=== PATIENT | male | born 1945 | race Caucasian/White ===

== ENCOUNTER 2023-04-02 11:50 | Inpatient (IN) ==
[2023-04-02 13:13] LABS: Hematocrit (blood only) 19.6 % (42.0-52.0); Hemoglobin 6.6 g/dl (14.0-18.0); Mean Corpuscular Hemoglobin 28.4 pg (25.0-34.0); Mean Corpuscular Hgb Conc 33.7 g/dL (32.0-36.0); Mean Corpuscular Volume 84.5 fL (80.0-100.0); Partial Thromboplastin Ratio 0.8; Partial Thromboplastin Time 21.9 Seconds (21.0-31.0); Platelet Count 132 K/uL (130-400); Prothrombin Time 11.2 Seconds (9.0-12.0); RDW Coefficient of Variation 15.3 % (11.5-14.5); RDW Standard Deviation 46.4 fL (36.4-46.3); Red Blood Count 2.32 M/uL (4.70-6.10); White Blood Count 2.61 K/ul (4.8-10.8)
[2023-04-02 13:14] LABS: Albumin Level 3.4 gm/dl (3.4-5.0); BUN Creatinine Ratio 5.6 (10-20); Bilirubin,Total 0.3 mg/dl (0.2-1.0); Calcium 8.3 mg/dl (8.6-10.3); Creatinine Clr Calc Pharmacy 7.4 ml/min; Est GFR (African American) 5.8 ml/min; Globulin 3.3 gm/dl (2.5-4.0); Potassium 4.2 mmol/L (3.5-5.1); Total Protein 6.7 gm/dl (6.0-8.3)
[2023-04-02] MEDS ORDERED: SODIUM CHLORIDE 0.9% 250 ML IV PRN ×2 (13:17→15:43)
[2023-04-02 13:29] LABS: Basophils # (auto) 0.03 K/uL (0-0.2); Basophils % (auto) 1.1 %; Eosinophils # (auto) 0.05 K/uL (0-0.50); Eosinophils % (auto) 1.9 %; Immature Granulocytes # (auto) 0.02 K/uL (0.01-0.20); Immature Granulocytes % (auto) 0.8 %; Lymphocytes # (auto) 0.77 K/uL (1.2-3.4); Lymphocytes % (auto) 29.5 %; Monocytes # (auto) 0.56 K/uL (0.11-0.59); Monocytes % (auto) 21.5 %; Neutrophils # (auto) 1.18 K/uL (1.40-6.50); Neutrophils % (auto) 45.2 %; RBC Morphology Unremarkable
[2023-04-02 14:33] LABS: Troponin I High Sensitivity 8.6 pg/ml (0-20)
--- NOTE | 2023-04-02 14:55 | CT Scan Report ---
CT head/brain wo con CLINICAL HISTORY: weakness Technique: Contiguous axial CT images of the head were acquired from the base of the skull to the jaydon sravani without intravenous contrast administration. Images were viewed in brain, subdural and bone [facility] . Automated dose lowering techniques and/or adjustment according to patient size were utilized for this exam. Comparison: None available at the time of this dictation. Findings: The ventricles, basal cisterns, and cerebral sulci are normal. There is no acute intracranial hemorrh age or evidence of acute territorial infarction. Neither mass effect, shift of the midline structures , nor abnormal extra-axial fluid collections are shown. Imaged portions of the paranasal sinuses and mastoid air cells are clear. The orbits appear normal. There are no acute fractures of the calvaria or scalp swelling. Impression: No acute intracranial hemorrhage, no evidence of acute territorial infarction or other acute intracra nial disease process. ACT 112: Negative or not required by law. Electronically signed by: Bhavin Valladares M.D. 04/02/2023 2:53 PM
--- NOTE | 2023-04-02 16:29 | History & Physical Report ---
Date of Service April 02, 2023 Assessment & Plan (1) Symptomatic anemia: (2) ESRD (end stage renal disease): (3) Generalized weakness: (4) T2DM (type 2 diabetes mellitus): (5) HTN (hypertension): (6) HLD (hyperlipidemia): (7) PVD (peripheral vascular disease): (8) Pancytopenia: (9) Foot osteomyelitis, left: (10) Wound of right foot: Plan This is a 78-year-old male who has a significant past medical history of HTN, HLD, PVD, uncontrolled T2DM, pancytopenia, glaucoma and 3 recent hospitalizations starting at the [facility] in [place] and 2 in [facility] starting in early January. Please defer to my HPI for significant recent hospital courses at [facility] and [place]. Pt and girlfriend are poor historian regarding recent medical events as well as medication history. Symptomatic anemia admit to PCU obtain anemia panel, iron, vit b12, folate, retic, ldh transfuse 1unit PRBC to keep hgb > 7 no indication for HD at this time and not overtly volume overloaded repeat h/h @ 20:00 anemia likely in setting of renal disease; however pt has required transfusions during hospital stay, may need GI consult, although pt denies dark stools, vs antibiotics place on PPI empirically for now, obtain FOBT A/C CKD that has since resulted in HD with tunneled cath in place on 02/14 cr was 1.51 since cr is 9.11 and he is on HD MWF, last treatment friday has been dizzy since TDC in place felt to be 2/2 antibiotic from records possibly vanco S/P TMA bilaterally L Foot osteomyelitis s/p treatment and completed course of IV dapto +MRSA and enterococcus faecialis PVD consult wound nurse for R foot TMA incision no indication for infection at thus time contact precautions Seizure d/o Cefepime induced encephalopathy During recent hospitalizations patient underwent multiple EEGs. 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 He continued to have seizure despite Keppra load and therefore was placed on Keppra 500 mg twice daily with additional Keppra dose after hemodialysis on Friday Pt A&O x3; however lacks insight, appears to be baseline, may also be education barrier Uncontrolled T2DM a1c 8.9 during last hospital stay lantus/novolog per protocol hold pioglitazone visual educator, obtain a1c HTN continue amlodipine HLD continue statins DVT prophylaxis: none in setting of anemia, if bleeding ruled out consider chemical ppx, will hold on scds for now in setting of pvd FULL CODE PCP: In [facility] Dispo: admit to pcu, reviewed [facility] records, [facility] as [facility] as most recent med list. Meds were reconciled with d/c summary from most recent hospital stay d/c date 03/15. Pt and girlfriend at bedside uncertain what he is taking. Will also obtain records from [facility] where he was recently discharged. Pt was seen and examined in collaboration with Dr. Grewal, please see addendum A total of 75 was spent coordinating, documenting, and providing care for this patient excluding time spent in the performance of separately billed services. This included personally viewing all current laboratories and imaging studies, medication reconciliation, outpatient chart review, and discussion with specialists. History of Present Illness Chief Complaint: Weakness Primary Care Provider: Blanca Nicole PA-C This is a 78-year-old male who has a significant past medical history of HTN, HLD, PVD, uncontrolled T2DM, pancytopenia, glaucoma and 3 recent hospitalizations starting at the [facility] in [place] and 2 in [facility] starting in early January. Patient is a very poor historian and girlfriend at bedside is poor historian as well. Still need to obtain hospital records from [place] facility. Records reviewed from [facility] which are not entirely clear of whole hospital picture. Patient initially underwent localized debridement to his bilateral feet at local [facility] on 01/29/2023. During the hospital stay patient was placed on IV vancomycin and cefepime via PICC line. Deep wound culture of his foot on 02/11 revealed MRSA and Enterococcus facialis both sensitive to vancomycin. At some time patient underwent bilateral TMA secondary to the osteomyelitis. Patient was re hospitalized at [facility] on 02/24 to 03/06/2023. On admission on 02/24 he was found to have a BUN of 46 and a creatinine of 5.0. At that time he was also found to have leukopenia and hemoglobin of 7.0. Nephrology was consulted and patient was started on hemodialysis. 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 Due to concern for further infection patient underwent MRI of right foot which was nondiagnostic and MRI of left foot which showed acute osteomyelitis. He was started on daptomycin and Zosyn and infectious disease was following. He underwent I&D of right foot on 03/02 and is to follow-up with podiatry upon discharge. His hospital course was further complicated with acute encephalopathy. He was seen and evaluated by neurology and EEG was complete. It was felt patient was suffering from cefepime induced neurotoxicity given EEG findings and improvement with time off cefepime. He was initially placed on Keppra due to concern for possible seizure disorder but this was discontinued. He underwent tunneled dialysis catheter placement on 03/04. He was then discharged to subacute rehab to continue daptomycin and Zosyn till 03/28 with weekly labs. He then represented back to the hospital on 03/10 and was admitted through 03/15/2023 secondary to altered mental status. CT head, though motion compromised, showed no acute findings. Lab work revealed BUN 36, creatinine 10.6 and hemoglobin of 6.5. It was determined that patient had still been on cefepime at [facility] despite being discontinued. Again it was thought that it was neurotoxicity secondary to cefepime although mental status did not significantly improve after discontinuation. An EEG was performed which showed nonconvulsive status epilepticus and so he was loaded with Keppra and moved to neuro PCU for continuous EEG monitoring. EEG showed further seizures despite Keppra loading and was given additional Keppra and Ativan. Neurology recommended giving extra 500 mg dose of Keppra after hemodialysis. In regards to his left foot osteomyelitis ID recommended daptomycin. Blood cultures were negative to date. In regards to his pancytopenia he did require 2 units of PRBCs and hemoglobin was stable at 9.1 on discharge. He was scheduled Friday for dialysis and is to continue to have extra 5 mg dose of Keppra after each dialysis. His A1c during hospital stay was 8.9 which revealed overall poor control. He was then discharged back to SNF in medically stable condition. He was recently discharged from rehab. He had been doing well and girlfriend agreed at bedside. He woke up this morning and felt weak and was having a hard time walking. His last HD treatment was on Friday and since then has been more dizzy. He denies fever, sweats, chest pain, sob, lightheaded, n/v/d, epistaxis, hemopty sis, melena, hematochezia. He feels off balance and is having a hard time walking. Again patient is a very poor historian therefore ROS limited. Allergies Allergy/AdvReac Type Severity Reaction Status Date / Time cefepime Allergy Unknown SEE COMMENT Verified 04/02/23 15:54 simvastatin AdvReac Intermediate Gastrointestinal Verified 04/02/23 15:52 Upset Home Medications Medication Instructions Recorded Confirmed Type amlodipine 5 mg tablet 5 mg PO DAILY 04/02/23 04/02/23 History apple cider vinegar 500 mg tablet 1,000 mg PO DAILY 04/02/23 04/02/23 History aspirin 81 mg tablet,delayed 81 mg PO DAILY 04/02/23 04/02/23 History release atorvastatin 40 mg tablet 40 mg PO HS 04/02/23 04/02/23 History cyanocobalamin (vitamin B-12) 1,000 mcg PO DAILY 04/02/23 04/02/23 History 1,000 mcg tablet (Vitamin B-12) diclofenac sodium 1 % topical gel 2 g topical TID PRN Pain 04/02/23 04/02/23 History dorzolamide 2 % eye drops 1 drp ophthalmic (eye) TID 04/02/23 04/02/23 History garlic 1,000 mg capsule (garlic 1,000 mg PO DAILY 04/02/23 04/02/23 History oil) hydrocodone 5 mg-acetaminophen 325 1 tab PO BID PRN Pain 04/02/23 04/02/23 History mg tablet insulin glargine 100 unit/mL 10 unit subcut QAM 04/02/23 04/02/23 History subcutaneous solution latanoprost 0.005 % eye drops 1 drp ophthalmic (eye) PM 04/02/23 04/02/23 History levetiracetam 500 mg tablet 500 mg PO MOWEFR 04/02/23 04/02/23 History (Keppra) levetiracetam 500 mg tablet 500 mg PO Q12H 04/02/23 04/02/23 History (Keppra) pioglitazone 30 mg tablet 30 mg PO DAILY 04/02/23 04/02/23 History povidone-iodine 10 % topical 1 applic topical DAILY PRN BLISTER 04/02/23 04/02/23 History solution ON FOOT sevelamer HCl 800 mg tablet 2,400 mg PO TID 04/02/23 04/02/23 History sildenafil 100 mg tablet 100 mg PO DAILY PRN NEEDED 04/02/23 04/02/23 History vitamins A,C,D-wqad-jneiua 2,148 1 tab PO BID 04/02/23 04/02/23 History mcg-113 mg-45 mg-17.4 mg tablet (PreserVision AREDS) 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 Family History Father Cancer Colorectal cancer Mother Old age Social History Smoking Status: Never smoker Hx Alcohol Use: No Hx Substance Use: No Preferred Language: [employer] Light[employer] Adviser Required: No Beliefs That Will Affect Care: None marital status: Current Living Situation: Spouse Other Information That Helps Us Care for You: No Feels Safe at Home: Yes Safety Concerns: Feels Safe At This Time Assistive Devices: Cane and Special Shoe Review of Systems Review of Systems: All systems reviewed & are unremarkable except as noted in HPI & below Physical Exam Physical Exam: please refer to Dr. Grewal addendum for physical exam findings. Results & Data Results & Data Vital Signs (Past 12 Hours) Vital Signs Temp Pulse Pulse Resp BP Pulse Ox O2 Del Method 04/02/23 15:58 80 04/02/23 12:03 90 04/02/23 12:02 93 H 04/02/23 12:01 36.9 C 93 H 18 124/59 L 98 Room Air Diagnostic Findings Head CT 04/02/23 14:15 CT head/brain wo con CLINICAL HISTORY: weakness Technique: Contiguous axial CT images of the head were acquired from the base of the skull to the vertex without intravenous contrast administration. Images were viewed in brain, subdural and bone windows. Automated dose lowering techniques and/or adjustment according to patient size were utilized for this exam. Comparison: None available at the time of this dictation. Findings: The ventricles, basal cisterns, and cerebral sulci are normal. There is no acute intracranial hemorrhage or evidence of acute territorial infarction. Neither mass effect, shift of the midline structures, nor abnormal extra-axial fluid collections are shown. Imaged portions of the paranasal sinuses and mastoid air cells are clear. The orbits appear normal. There are no acute fractures of the calvaria or scalp swelling. Impression: No acute intracranial hemorrhage, no evidence of acute territorial infarction or other acute intracranial disease process. ACT 112: Negative or not required by law. Electronically signed by: Bhavin Valladares M.D. 04/02/2023 2:53 PM ECG Rate (beats per minute): 84 Rhythm: normal sinus COVID-19 Results Results COVID-19 Adm Lab Results: RBC 2.32 M/uL (4.70-6.10) L 04/02/23 WBC 2.61 K/ul (4.8-10.8) L 04/02/23 Hgb 6.6 g/dl (14.0-18.0) L* 04/02/23 Hct 19.6 % (42.0-52.0) L* 04/02/23 Plt Count 132 K/uL (130-400) 04/02/23 Neutrophils (%) (Auto) 45.2 % 04/02/23 Lymphocytes (%) (Auto) 29.5 % 04/02/23 Monocytes # (Auto) 0.56 K/uL (0.11-0.59) 04/02/23 Eosinophils # (Auto) 0.05 K/uL (0-0.50) 04/02/23 Immature Granulocyte % (Auto) 0.8 % 04/02/23 Neutrophils # (Auto) 1.18 K/uL (1.40-6.50) L 04/02/23 Lymphocytes # (Auto) 0.77 K/uL (1.2-3.4) L 04/02/23 Monocytes # (Auto) 0.56 K/uL (0.11-0.59) 04/02/23 Eosinophils # (Auto) 0.05 K/uL (0-0.50) 04/02/23 Basophils # (Auto) 0.03 K/uL (0-0.2) 04/02/23 Immature Granulocyte # (Auto) 0.02 K/uL (0.01-0.20) 3 Red Blood Cell Morphology Unremarkable 04/02/23 Na 136 mmol/L (136-145) 04/02/23 K 4.2 mmol/L (3.5-5.1) 04/02/23 Cl 98 mmol/L (98-107) 04/02/23 CO2 27 mmol/L (21-32) 04/02/23 Anion Gap 11 (3-11) 04/02/23 BUN 51 mg/dl (6-23) H 04/02/23 Creatinine 9.11 mg/dl (0.6-1.4) H* 04/02/23 BUN/Creatinine Ratio 5.6 (10-20) L 04/02/23 Glucose Level 210 mg/dl (70-99(Fasting)) H 04/02/23 Ca 8.3 mg/dl (8.6-10.3) L 04/02/23 Total Bilirubin 0.3 mg/dl (0.2-1.0) 04/02/23 AST/SGOT 11 U/L (13-39) L 04/02/23 ALT/SGPT 8 U/L (7-52) 04/02/23 Alkaline Phosphatase 59 U/L (34-104) 04/02/23 Total Protein 6.7 gm/dl (6.0-8.3) 04/02/23 Albumin 3.4 gm/dl (3.4-5.0) 04/02/23 Globulin 3.3 gm/dl (2.5-4.0) 04/02/23 Albumin/Globulin Ratio 1.0 (0.9-2) 04/02/23 Ferritin 584.3 ng/ml (8-388) H 04/02/23 PTT 21.9 Seconds (21.0-31.0) 04/02/23 INR 1.0 (0.9-1.1) 04/02/23 SARS-CoV-2, RNA, NAAT NEGATIVE (NEGATIVE) 04/02/23 Code Status & VTE Plan Code Status FULL CODE VTE Prophylaxis Plan VTE Prophylaxis will be ordered: Yes Supervising Physician Co-Signing Physician Notes Patient is a 78-year-old male with history of end-stage renal disease on dialysis, peripheral vascular disease, diabetes mellitus, pancytopenia and other medical problems presents with history of generalized weakness, ambulatory dysfunction associated with some dizziness. Patient missed his dialysis today. Patient is a very poor historian. He had a complex hospitalization recently at [facility] and was treated for osteomyelitis of foot, and was recently started on dialysis. Please review HPI for complete details of presentation. Physical Exam: Vitals signs as noted above General Appearance:Moderately built and nourished, no apparent distress Head: normocephalic, Atraumatic Eyes: normal inspection, EOMI Neck: supple, Trachea midline Respiratory/Chest: Normal breath sounds, CTA, R HD Catheter, No accessory muscle use Cardiovascular: S1, S2, No murmur Abdomen/GI:Soft, Non tender, Bowel sounds present Extremities/Musculoskeletal:normal inspection, Trace pedal edema, B/L partial foot amputations, +wounds Neurologic/Psych:AAOX3, grossly no focal neurological deficits, slow to respond Skin: normal color, warm Symptomatic anemia Ambulatory dysfunction End-stage renal disease on dialysis Leukopenia Diabetes mellitus type 2 Seizure disorder H/O left foot osteomyelitis Peripheral vascular disease Transfuse 1 unit PRBC. Anemia work-up ordered Monitor H&H Dialysis as per nephrology Wound care consulted insulin while hospitalized to manage diabetes mellitus PT OT, fall precautions I personally reviewed the record. Patient is interviewed and examined at bedside. Patient's care is coordinated with Bethany Branham PA-C. Please refer to the documentation above for details of patient's presentation and for discussion of other issues.
[2023-04-02 18:05] LABS: Reticulocyte % 1.3 % (0.5-2.0); Reticulocytes # 0.03 10^6/uL (0.02-0.10)
[2023-04-02] MEDS ORDERED: DEXTROSE 50% 50 ML SYRINGE IV PRN (18:11)
[2023-04-02] MEDS ORDERED: GLUCOSE 40% GEL 15 GM TUBE PO PRN (18:11)
[2023-04-02] MEDS ORDERED: POLYETHYLENE (MIRALAX) 17 GM PACK PO PRN (18:11)
[2023-04-02] MEDS ORDERED: GLUCOSE 10 TAB/TUBE PO PRN (18:11)
[2023-04-02] MEDS ORDERED: GLUCAGON FOR INJ 1 MG VIAL SQ PRN (18:11)
[2023-04-02] MEDS ORDERED: ONDANSETRON INJ 2 MG/ML 2 ML VIAL IV PRN (18:11)
[2023-04-02] MEDS ORDERED: CARBOHYDRATES FOR HYPOGLYCEMIA PO PRN (18:11)
--- NOTE | 2023-04-02 18:14 | Emergency Department Note ---
Impression & Plan Severe anemia, ESRD (end stage renal disease), Generalized weakness, Pancytopenia ED Provider Note INFORMANT: Patient and family ED PROVIDER(S): Bonifacio Pena MD CHIEF COMPLAINT: Weakness PLAN: Disposition: Admitted Condition: Good Outpatient prescription management: none Referral: None MEDICAL DECISION MAKING: Patient presented because of weakness. Old records were requested from the [facility]. Blood work done here. Patient has a decreased white blood cell count. His hemoglobin is 6.6. When I did obtain old records he was found to have a hemoglobin of 8.4 on 17 March. It then dropped to 7.3 on the . Patient does note shortness of breath and fatigue. Discussed transfusion and patient consented. noted patient did receive transfusion during one of the prior hospitalizations recently. Patient was given 1 unit of blood. Patient did have a mild elevation of blood glucose. Creatinine was significantly elevated consistent with his end-stage renal disease. Troponin was negative. ECG did not show any acute findings. Patient had a consultation placed with the [facility] service. Patient was evaluated in the ER and admitted for further management. Discussed with strategic development manager After review of the information above and other included data, I feel the patient requires admission. Triage Nursing notes reviewed and agree them. Vital Signs: reviewed and remarkable for no significant abnormalities Prior /Outside records reviewed: Prior admission records reviewed from the [facility]. Differential diagnosis: Infection, dehydration, metabolic abnormality, hypo/hyperglycemia, electrolyte disturbance, anemia, hypoxia, cardiac sources, intracerebral event, toxicologic, neurologic, as well as other pathologies. Diagnostics, as interpreted by me: EC Lead ECG performed and revealed Normal sinus rhythm at 80, normal [place], QRS normal. No elevation or depression. No PACs or PVCs Cardiac Monitoring: Cardiac monitoring ordered by me: The patient was placed on continuous cardiac monitoring and observed. It revealed a normal sinus rhythm at 83 beats per minute without ectopy or evidence of dysrhythmia. Medical decision rules: none Imaging studies: Head CT: A noncontrast CT scan of the head was performed and was negative for tumor, fracture, intracranial hemorrhage, or other acute pathology. HPI: The patient is a 78 year old male who presents to the Emergency Room with complaints of weakness. This started last week worsening and is . The patient also notes the following associated symptoms, fatigue, some dyspnea on exertion, feeling shaky and tremulous. The patient has found no relieving factors. Current pain is rated as 0/10. Patient's is present helps with history. Patient had developed a foot infection on the right side and was admitted to the [facility] several weeks ago. He was treated with IV antibiotics and she notes that he had a reaction to one of them and it caused kidney injury. He ended up needing dialysis. He was discharged and then improved slightly but then got worse. He was back into the hospital. Patient was then sent to rehab. He then was discharged and she noted he felt ill during dialysis 2 days ago. He seemed to get better again yesterday. Patient then seemed more weak and she was concerned and patient was brought here for evaluation. Family does not want him to go back to [place]. Pt denies LOC, headache, fevers, chills, diaphoresis, visual changes, neck pain, chest pain, nausea, vomiting, abdominal pain, back pain, melena, hematochezia, urinary symptoms, numbness, lymphadenopathy, rash, or other complaints. PAST MEDICAL HISTORY: See Below, end-stage renal disease, hypertension, diabetes, osteomyelitis PAST SURGICAL HISTORY: See Below, dialysis catheter right chest SOCIAL HISTORY: See Below, HOME MEDICATIONS: See Below ALLERGIES: See Below VITALS: See Below PHYSICAL EXAMINATION: GENERAL: Awake, tired-appearing, in no distress HENT: Normocephalic, atraumatic. Oropharynx unremarkable. EYES: Pale conjunctiva. Sclera non-icteric. NECK: Inspection normal. Non-tender. Supple. No nuchal rigidity. FROM. No masses. RESPIRATORY: Clear to auscultation. No wheezes. No rales. Normal respiratory effort. CARDIAC: Normal rate. Normal rhythm. No murmurs. No rubs. Extremities warm and well perfused. Pulses equal. No JVD. GI: Soft, non-distended. No tenderness to palpation. No rebound or guarding. No masses. RECTAL: Deferred. MUSCULOSKELETAL: Atraumatic. Chest examination reveals dialysis catheter in the right upper chest. No signs of infection. The back is symmetrical on inspection without obvious abnormality. There is no CVA tenderness to palpation. No joint edema. LOWER EXTREMITIES: Calves are equal size bilaterally and non-tender. Trace edema. No discoloration. None distal right foot without streaking redness or significant drainage. NEURO: Normal sensorium. No sensory or motor deficits noted. SKIN: No rash or jaundice noted. 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 Family History Father Cancer Colorectal cancer Mother Old age Social History Smoking Status: Never smoker Hx Alcohol Use: No Hx Substance Use: No Preferred Language: Syriac marital status: Current Living Situation: Spouse Feels Safe at Home: Yes Allergies Allergies Allergy/AdvReac Type Severity Reaction Status Date / Time cefepime Allergy Unknown SEE COMMENT Verified 04/02/23 15:54 simvastatin AdvReac Intermediate Gastrointestinal Verified 04/02/23 15:52 Upset Home Meds Home Medications Medication Instructions Recorded Confirmed amlodipine 5 mg tablet 5 mg PO DAILY 04/02/23 04/02/23 apple cider vinegar 500 mg tablet 1,000 mg PO DAILY 04/02/23 04/02/23 aspirin 81 mg tablet,delayed 81 mg PO DAILY 04/02/23 04/02/23 release atorvastatin 40 mg tablet 40 mg PO HS 04/02/23 04/02/23 cyanocobalamin (vitamin B-12) 1,000 mcg PO DAILY 04/02/23 04/02/23 1,000 mcg tablet (Vitamin B-12) diclofenac sodium 1 % topical gel 2 g topical TID PRN Pain 04/02/23 04/02/23 dorzolamide 2 % eye drops 1 drp ophthalmic (eye) TID 04/02/23 04/02/23 garlic 1,000 mg capsule (garlic 1,000 mg PO DAILY 04/02/23 04/02/23 oil) hydrocodone 5 mg-acetaminophen 325 1 tab PO BID PRN Pain 07/05/23 07/05/23 mg tablet insulin glargine 100 unit/mL 10 unit subcut QAM 04/02/23 04/02/23 subcutaneous solution latanoprost 0.005 % eye drops 1 drp ophthalmic (eye) PM 04/02/23 04/02/23 levetiracetam 500 mg tablet 500 mg PO MOWEFR 04/02/23 04/02/23 (Keppra) levetiracetam 500 mg tablet 500 mg PO Q12H 04/02/23 04/02/23 (Keppra) pioglitazone 30 mg tablet 30 mg PO DAILY 04/02/23 04/02/23 povidone-iodine 10 % topical 1 applic topical DAILY PRN BLISTER 04/02/23 04/02/23 solution ON FOOT sevelamer HCl 800 mg tablet 2,400 mg PO TID 04/02/23 04/02/23 sildenafil 100 mg tablet 100 mg PO DAILY PRN NEEDED 04/02/23 04/02/23 vitamins A,C,V-tqsq-iythkm 2,148 1 tab PO BID 04/02/23 04/02/23 mcg-113 mg-45 mg-17.4 mg tablet (PreserVision AREDS) Results & Data (ED) Vital Signs Vital Signs - 24 hr 04/02/23 12:01 04/02/23 12:02 04/02/23 12:03 Temperature 36.9 C Temperature Source Oral Pulse Rate 93 H 90 Pulse Rate [Apical] 93 H Pulse Rhythm Respiratory Rate 18 Respiratory Effort / Characteristics Non-Labored Respiratory Depth Normal Blood Pressure 124/59 L Blood Pressure Mean 80 Pulse Oximetry 98 Oxygen Delivery Method Room Air Sepsis Recent Fever Within 48 Hours No Sepsis New/Unexplained Change in Mental Status No Sepsis Action Taken by Nursing No Action Required 04/02/23 15:58 04/02/23 16:32 04/02/23 16:51 Temperature 36.5 C 36.5 C Temperature Source Oral Oral Pulse Rate 80 79 85 Pulse Rate [Apical] Pulse Rhythm Regular Respiratory Rate 14 16 Respiratory Effort / Characteristics Respiratory Depth Blood Pressure 129/69 116/58 L Blood Pressure Mean 89 77 Pulse Oximetry 94 97 Oxygen Delivery Method Sepsis Recent Fever Within 48 Hours Sepsis New/Unexplained Change in Mental Status Sepsis Action Taken by Nursing 04/02/23 17:06 04/02/23 17:36 04/02/23 17:43 Temperature 36.6 C 36.7 C 36.7 C Temperature Source Oral Oral Oral Pulse Rate 76 78 75 Pulse Rate [Apical] Pulse Rhythm Respiratory Rate 18 20 20 Respiratory Effort / Characteristics Respiratory Depth Blood Pressure 144/77 H 163/84 H 163/84 H Blood Pressure Mean 99 110 Pulse Oximetry 94 94 93 Oxygen Delivery Method Room Air Sepsis Recent Fever Within 48 Hours Sepsis New/Unexplained Change in Mental Status Sepsis Action Taken by Nursing Laboratory Data 04/02/23 12:00 04/02/23 12:00 Lab Results 04/02/23 04/02/23 04/02/23 Range/Units 12:00 12:00 12:00 WBC 2.61 L (4.8-10.8) K/ul RBC 2.32 L (4.70-6.10) M/uL Hgb 6.6 L* (14.0-18.0) g/dl Hct 19.6 L* (42.0-52.0) % MCV 84.5 (80.0-100.0) fL MCH 28.4 (25.0-34.0) pg MCHC 33.7 (32.0-36.0) g/dL RDW Std Deviation 46.4 H (36.4-46.3) fL RDW Coeff of Erica 15.3 H (11.5-14.5) % Plt Count 132 (130-400) K/uL MPV 9.0 L (9.4-12.4) fL Immature Gran % (Auto) 0.8 % Neut % (Auto) 45.2 % Lymph % (Auto) 29.5 % [place] % (Auto) 21.5 % Eos % (Auto) 1.9 % Baso % (Auto) 1.1 % Reticulocyte % (Auto) (0.5-2.0) % Neut # (Auto) 1.18 L (1.40-6.50) K/uL Lymph # (Auto) 0.77 L (1.2-3.4) K/uL [place] # (Auto) 0.56 (0.11-0.59) K/uL Eos # (Auto) 0.05 (0-0.50) K/uL Baso # (Auto) 0.03 (0-0.2) K/uL Reticulocyte # (0.02-0.10) 10^6/uL Immature Gran # (Auto) 0.02 (0.01-0.20) K/uL RBC Morphology Unremarkable PT 11.2 (9.0-12.0) Seconds INR 1.0 (0.9-1.1) APTT 21.9 (21.0-31.0) Seconds PTT Ratio 0.8 Sodium 136 (136-145) mmol/L Potassium 4.2 (3.5-5.1) mmol/L Chloride 98 (98-107) mmol/L Carbon Dioxide 27 (21-32) mmol/L Anion Gap 11 (3-11) BUN 51 H (6-23) mg/dl Creatinine 9.11 H* (0.6-1.4) mg/dl Est Cr Clr Drug Dosing 7.4 ml/min Est GFR ( Amer) 5.8 ml/min Est GFR (Non-Af Amer) 5.0 ml/min BUN/Creatinine Ratio 5.6 L (10-20) Glucose 210 H (70-99(Fasting)) mg/dl POC Glucose (70-99) mg/dl Calcium 8.3 L (8.6-10.3) mg/dl Iron 27 L (35-175) mcg/dl Transferrin 209 (200-360) mg/dl Total Bilirubin 0.3 (0.2-1.0) mg/dl AST 11 L (13-39) U/L ALT 8 (7-52) U/L Alkaline Phosphatase 59 (34-104) U/L Troponin I High Sens 8.6 (0-20) pg/ml Total Protein 6.7 (6.0-8.3) gm/dl Albumin 3.4 (3.4-5.0) gm/dl Globulin 3.3 (2.5-4.0) gm/dl Albumin/Globulin Ratio 1.0 (0.9-2) SARS-CoV-2, RNA, NAAT (NEGATIVE) Blood Type Blood Type Recheck Antibody Screen Crossmatch 04/02/23 04/02/23 04/02/23 Range/Units 12:00 13:53 15:12 WBC (4.8-10.8) K/ul RBC (4.70-6.10) M/uL Hgb (14.0-18.0) g/dl Hct (42.0-52.0) % MCV (80.0-100.0) fL MCH (25.0-34.0) pg MCHC (32.0-36.0) g/dL RDW Std Deviation (36.4-46.3) fL RDW Coeff of Erica (11.5-14.5) % Plt Count (130-400) K/uL MPV (9.4-12.4) fL Immature Gran % (Auto) % Neut % (Auto) % Lymph % (Auto) % [place] % (Auto) % Eos % (Auto) % Baso % (Auto) % Reticulocyte % (Auto) 1.3 (0.5-2.0) % Neut # (Auto) (1.40-6.50) K/uL Lymph # (Auto) (1.2-3.4) K/uL [place] # (Auto) (0.11-0.59) K/uL Eos # (Auto) (0-0.50) K/uL Baso # (Auto) (0-0.2) K/uL Reticulocyte # 0.03 (0.02-0.10) 10^6/uL Immature Gran # (Auto) (0.01-0.20) K/uL RBC Morphology PT (9.0-12.0) Seconds INR (0.9-1.1) APTT (21.0-31.0) Seconds PTT Ratio Sodium (136-145) mmol/L Potassium (3.5-5.1) mmol/L Chloride (98-107) mmol/L Carbon Dioxide (21-32) mmol/L Anion Gap (3-11) BUN (6-23) mg/dl Creatinine (0.6-1.4) mg/dl Est Cr Clr Drug Dosing ml/min Est GFR ( Amer) ml/min Est GFR (Non-Af Amer) ml/min BUN/Creatinine Ratio (10-20) Glucose (70-99(Fasting)) mg/dl POC Glucose (70-99) mg/dl Calcium (8.6-10.3) mg/dl Iron (35-175) mcg/dl Transferrin (200-360) mg/dl Total Bilirubin (0.2-1.0) mg/dl AST (13-39) U/L ALT (7-52) U/L Alkaline Phosphatase (34-104) U/L Troponin I High Sens (0-20) pg/ml Total Protein (6.0-8.3) gm/dl Albumin (3.4-5.0) gm/dl Globulin (2.5-4.0) gm/dl Albumin/Globulin Ratio (0.9-2) SARS-CoV-2, RNA, NAAT (NEGATIVE) Blood Type A Negative Blood Type Recheck A Negative Antibody Screen NEGATIVE Crossmatch See Detail 04/02/23 04/02/23 Range/Units 15:46 18:05 WBC (4.8-10.8) K/ul RBC (4.70-6.10) M/uL Hgb (14.0-18.0) g/dl Hct (42.0-52.0) % MCV (80.0-100.0) fL MCH (25.0-34.0) pg MCHC (32.0-36.0) g/dL RDW Std Deviation (36.4-46.3) fL RDW Coeff of Erica (11.5-14.5) % Plt Count (130-400) K/uL MPV (9.4-12.4) fL Immature Gran % (Auto) % Neut % (Auto) % Lymph % (Auto) % [place] % (Auto) % Eos % (Auto) % Baso % (Auto) % Reticulocyte % (Auto) (0.5-2.0) % Neut # (Auto) (1.40-6.50) K/uL Lymph # (Auto) (1.2-3.4) K/uL [place] # (Auto) (0.11-0.59) K/uL Eos # (Auto) (0-0.50) K/uL Baso # (Auto) (0-0.2) K/uL Reticulocyte # (0.02-0.10) 10^6/uL Immature Gran # (Auto) (0.01-0.20) K/uL RBC Morphology PT (9.0-12.0) Seconds INR (0.9-1.1) APTT (21.0-31.0) Seconds PTT Ratio Sodium (136-145) mmol/L Potassium (3.5-5.1) mmol/L Chloride (98-107) mmol/L Carbon Dioxide (21-32) mmol/L Anion Gap (3-11) BUN (6-23) mg/dl Creatinine (0.6-1.4) mg/dl Est Cr Clr Drug Dosing ml/min Est GFR ( Amer) ml/min Est GFR (Non-Af Amer) ml/min BUN/Creatinine Ratio (10-20) Glucose (70-99(Fasting)) mg/dl POC Glucose 100 H (70-99) mg/dl Calcium (8.6-10.3) mg/dl Iron (35-175) mcg/dl Transferrin (200-360) mg/dl Total Bilirubin (0.2-1.0) mg/dl AST (13-39) U/L ALT (7-52) U/L Alkaline Phosphatase (34-104) U/L Troponin I High Sens (0-20) pg/ml Total Protein (6.0-8.3) gm/dl Albumin (3.4-5.0) gm/dl Globulin (2.5-4.0) gm/dl Albumin/Globulin Ratio (0.9-2) SARS-CoV-2, RNA, NAAT NEGATIVE (NEGATIVE) Blood Type Blood Type Recheck Antibody Screen Crossmatch Imaging Data Radiologist's Impression: Head CT 04/02/23 14:15 CT head/brain wo con CLINICAL HISTORY: weakness Technique: Contiguous axial CT images of the head were acquired from the base of the skull to the vertex without intravenous contrast administration. Images were viewed in brain, subdural and bone windows. Automated dose lowering techniques and/or adjustment according to patient size were utilized for this exam. Comparison: None available at the time of this dictation. Findings: The ventricles, basal cisterns, and cerebral sulci are normal. There is no acute intracranial hemorrhage or evidence of acute territorial infarction. Neither mass effect, shift of the midline structures, nor abnormal extra-axial fluid collections are shown. Imaged portions of the paranasal sinuses and mastoid air cells are clear. The orbits appear normal. There are no acute fractures of the calvaria or scalp swelling. Impression: No acute intracranial hemorrhage, no evidence of acute territorial infarction or other acute intracranial disease process. ACT 112: Negative or not required by law. Electronically signed by: Bhavin Valladares M.D. 04/02/2023 2:53 PM Discharge Plan Visit Data Chief Complaint: Weakness Stated Complaint: WEAKNESS ED Provider: Bonifacio Pena Discharge Problem: Severe anemia, ESRD (end stage renal disease), Generalized weakness, Pancytopenia Patient Disposition: Admitted As Inpatient Discharge Instructions Interventions: ED Discharge Assessment Last Done: 04/02/23 17:43
[2023-04-02 18:24] LABS: Ferritin 584.3 ng/ml (8-388)
[2023-04-02] MEDS: CEROVITE ADV FORMULA TAB PO SCH (20:16)
[2023-04-02] MEDS: levETIRAcetam 500 MG TAB PO SCH (20:16)
[2023-04-02] MEDS: PANTOprazole 40 MG TAB PO SCH (20:16)
[2023-04-02] MEDS: ATORVASTATIN 40 MG TAB PO SCH (20:16)
[2023-04-02] MEDS: SEVELAMER HCL 800 MG TABLET PO SCH (20:17)
[2023-04-02] MEDS: LATANOPROST 0.005% OP SOLN 2.5 ML BTL OP SCH (20:17)
[2023-04-02] MEDS: DORZOLAMIDE HCL 2% OPH SOLN 10 ML BTL OP SCH (20:17)
[2023-04-02] MEDS ORDERED: LANTUS PER UNIT CHARGE SQ SCH (21:00)
[2023-04-02] MEDS: INSULIN ASPART PER UNIT CHARGE SC SCH ×2 (21:06→21:07)
[2023-04-02 22:08] LABS: Hematocrit (blood only) 22.6 % (42.0-52.0); Hemoglobin 7.9 g/dl (14.0-18.0)
[2023-04-03 06:17] LABS: Basophils # (auto) 0.03 K/uL (0-0.2); Eosinophils # (auto) 0.09 K/uL (0-0.50); Hematocrit (blood only) 23.4 % (42.0-52.0); Immature Granulocytes # (auto) 0.02 K/uL (0.01-0.20); Immature Granulocytes % (auto) 0.7 %; Lymphocytes # (auto) 1.27 K/uL (1.2-3.4); Lymphocytes % (auto) 42.6 %; Mean Corpuscular Hemoglobin 29.1 pg (25.0-34.0); Mean Corpuscular Hgb Conc 34.2 g/dL (32.0-36.0); Mean Corpuscular Volume 85.1 fL (80.0-100.0); Mean Platelet Volume 8.6 fL (9.4-12.4); Monocytes # (auto) 0.52 K/uL (0.11-0.59); Monocytes % (auto) 17.4 %; Neutrophils # (auto) 1.05 K/uL (1.40-6.50); Neutrophils % (auto) 35.3 %; Platelet Count 134 K/uL (130-400); RDW Coefficient of Variation 15.1 % (11.5-14.5); RDW Standard Deviation 46.4 fL (36.4-46.3); Red Blood Count 2.75 M/uL (4.70-6.10); White Blood Count 2.98 K/ul (4.8-10.8)
[2023-04-03] MEDS: ACETAMINOPHEN 325 MG TAB PO PRN ×3 (06:37→19:36)
[2023-04-03] MEDS: levETIRAcetam 500 MG TAB PO SCH ×2 (06:38→17:25)
[2023-04-03 06:56] LABS: Albumin Globulin Ratio 0.9 (0.9-2); Albumin Level 3.1 gm/dl (3.4-5.0); BUN Creatinine Ratio 5.6 (10-20); Bilirubin,Total 0.4 mg/dl (0.2-1.0); Calcium 8.2 mg/dl (8.6-10.3); Creatinine Clr Calc Pharmacy 6.4 ml/min; Est GFR (African American) 4.9 ml/min; Est GFR (Non-African American) 4.2 ml/min; Globulin 3.3 gm/dl (2.5-4.0); Magnesium 1.9 mg/dl (1.7-2.4); Phosphorus 4.8 mg/dl (2.5-4.9); Potassium 4.1 mmol/L (3.5-5.1); Total Protein 6.4 gm/dl (6.0-8.3)
[2023-04-03 07:49] LABS: Estimated Average Glucose 140 mg/dl; Hemoglobin A1C 6.5 % (4.5-5.6)
[2023-04-03] MEDS: SEVELAMER HCL 800 MG TABLET PO SCH ×3 (07:51→17:24)
[2023-04-03] MEDS: amLODIPine BESYLATE 5 MG TAB PO SCH (07:52)
[2023-04-03] MEDS: PANTOprazole 40 MG TAB PO SCH ×2 (07:52→20:53)
[2023-04-03] MEDS: ASPIRIN 81 MG ECTAB PO SCH (07:52)
[2023-04-03] MEDS: CEROVITE ADV FORMULA TAB PO SCH ×2 (07:52→20:54)
[2023-04-03] MEDS: CYANOCOBALAMIN (B-12) 500 MCG TABLET PO SCH (07:52)
[2023-04-03] MEDS: DORZOLAMIDE HCL 2% OPH SOLN 10 ML BTL OP SCH ×3 (07:53→20:41)
[2023-04-03] MEDS: INSULIN ASPART PER UNIT CHARGE SC SCH ×4 (08:52→20:38)
--- NOTE | 2023-04-03 10:20 | Nephrology Consultation ---
Date of Consultation April 03, 2023 Assessment & Plan (1) Dependence on renal dialysis: unclear if HEMANT on ESRD-need records from outside unit when then open in AM but clinical profile fits ESRD -plan gentle HD today -strict I/O -daily bmp, cbc ->>continue 500 mg supplemental keppra post HD >order in for nurses to ask about this on non HD days such as today -agree w/ dialysis diet, 1.5L FR care coordinated w/ Dr Holly (2) Foot osteomyelitis, left: recently comleted daptomycin and zosyn 03/28 >> hospitalist reassessing for status (3) Symptomatic anemia: s/p pRBC 04/02 which he seems to have tolerated well (4) Leukopenia: ? relation to abtx or to sepsis or to other -monitor History of Present Illness Reason for Consultation: recent AIN/ATN now dialysis dependent Requesting Physician: Dr Greawl Attending Physician: Elayne Rodriguez MD History of Present Illness 78 y/o M whom I'm asked to see for dialysis needs was admitted yesterday for worsening anemia. PMH includes HTN, HLD, PVD, uncontrolled T2DM, pancytopenia, glaucoma. He has also had 3 hospital stays since early January and in this setting developed dialysis dependent HEMANT. hx of appendectomy, else no abd surgery Records are incomplete; pt can offer limited hx; much hx obtained from chart. He had localized debridement to his bilateral feet at the [facility] on 01/29/2023 and started IV vancomycin and cefepime via PICC. Deep wound cultures 02/11 grew MRSA and E facialis both sensitive to vancomycin. He was diagnosed w/ osteomyelitis and underwent bilateral TMA as well. The pateint was hospitalized at [facility] on 02/24 to 03/06/2023 for anemia and HEMANT w/ presenting hgb of 7 and creatinine of 5 per report. Nephrology diagnosed AIN/ATN from [facility] and started pt on hemodialysis. TDC placed 03/04. He had MRI of BL feet showing nothing diagnositc on R but acute osteomyelitis on L. He was started on daptomycin and Zosyn per infectious diseases. He underwent I&D of right foot on 03/02 and is to follow-up with podiatry upon discharge. His hospital course was further complicated with acute encephalopathy. 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 He was initially placed on Keppra due to concern for possible seizure disorder but this was discontinued. He was then discharged to subacute rehab to continue daptomycin and Zosyn till 03/28 with weekly labs. blood cultures have been negative. however he was readmitted 03/10 through 03/15/2023 secondary to altered mental status. CT head, though motion compromised, showed no acute findings. Lab work revealed BUN 36, creatinine 10.6 and hemoglobin of 6.5. It was determined that patient had still been on cefepime at [facility] despite its being discontinued. Again MS changes were attributed neurotoxicity secondary to cefepime although this time mental status did not significantly improve after discontinuation. 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 He had a Keppra load and continuous EEG monitoring which showed further seizures despite Keppra loading. He was given additional Keppra and Ativan. Neurology recommended an extra 500 mg dose of Keppra after hemodialysis.He had pancytopenia and required 2 units pRBC w/ d/c hgb 9.1. His dialysis continued throughout this stay. He was d/c back to [facility] in medically stable condition for rehab from which he was recently d/c. He'd reportedly been doing ok at home until he woke up 7/5 AM w/ weakness and abruptly worsened ambulatory dysfunction though he was already having dizziness increased after last 03/31 HD treatment. Today he c/o L shoulder pain non radiating, worse w/ bearing wt. No fever, sweats, chest pain, sob, lightheaded, n/v/d, epistaxis, hemoptysis, melena, hematochezia. has been up and ambulating w/ walker today. endorses 30 lb wt loss since start of January. wound team following. voids once every few days. Allergies Allergy/AdvReac Type Severity Reaction Status Date / Time cefepime Allergy Unknown SEE COMMENT Verified 04/02/23 15:54 simvastatin AdvReac Intermediate Gastrointestinal Verified 04/02/23 15:52 Upset Home Medications Medication Instructions Recorded Confirmed Type amlodipine 5 mg tablet 5 mg PO DAILY 04/02/23 04/02/23 History apple cider vinegar 500 mg tablet 1,000 mg PO DAILY 04/02/23 04/02/23 History aspirin 81 mg tablet,delayed 81 mg PO DAILY 04/02/23 04/02/23 History release atorvastatin 40 mg tablet 40 mg PO HS 04/02/23 04/02/23 History cyanocobalamin (vitamin B-12) 1,000 mcg PO DAILY 04/02/23 04/02/23 History 1,000 mcg tablet (Vitamin B-12) diclofenac sodium 1 % topical gel 2 g topical TID PRN Pain 04/02/23 04/02/23 History dorzolamide 2 % eye drops 1 drp ophthalmic (eye) TID 04/02/23 04/02/23 History garlic 1,000 mg capsule (garlic 1,000 mg PO DAILY 04/02/23 04/02/23 History oil) hydrocodone 5 mg-acetaminophen 325 1 tab PO BID PRN Pain 04/02/23 04/02/23 History mg tablet insulin glargine 100 unit/mL 10 unit subcut QAM 04/02/23 04/02/23 History subcutaneous solution latanoprost 0.005 % eye drops 1 drp ophthalmic (eye) PM 04/02/23 04/02/23 History levetiracetam 500 mg tablet 500 mg PO MOWEFR 04/02/23 04/02/23 History (Keppra) levetiracetam 500 mg tablet 500 mg PO Q12H 04/02/23 04/02/23 History (Keppra) pioglitazone 30 mg tablet 30 mg PO DAILY 04/02/23 04/02/23 History povidone-iodine 10 % topical 1 applic topical DAILY PRN BLISTER 04/02/23 04/02/23 History solution ON FOOT sevelamer HCl 800 mg tablet 2,400 mg PO TID 04/02/23 04/02/23 History sildenafil 100 mg tablet 100 mg PO DAILY PRN NEEDED 04/02/23 04/02/23 History vitamins A,C,D-txxm-aaytny 2,148 1 tab PO BID 04/02/23 04/02/23 History mcg-113 mg-45 mg-17.4 mg tablet (PreserVision AREDS) Patient History Medical History (Updated 04/03/23 @ 10:44 by Trudy Flanagan MD, PhD) Dependence on renal dialysis Glaucoma HLD (hyperlipidemia) HTN (hypertension) Pancytopenia PVD (peripheral vascular disease) T2DM (type 2 diabetes mellitus) Surgical History 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 Family History Father Cancer Colorectal cancer Mother Old age Social History Smoking Status: Never smoker Hx Alcohol Use: No Hx Substance Use: No Preferred Language: Faroese Communication Ability: Effective Oyster Shipper Required: No Beliefs That Will Affect Care: None marital status: Current Living Situation: Spouse Other Information That Helps Us Care for You: No Feels Safe at Home: Yes Safety Concerns: Feels Safe At This Time Assistive Devices: Cane and Walker Review of Systems Review of Systems: All systems reviewed & are unremarkable except as noted in HPI & below Physical Exam Constitutional: well developed and well nourished; no acute distress (lying flat on RA) Eyes: EOM intact bilaterally ENMT: Ears: no external ear abnormality Nose: no external nose abnormality Mouth: + dry oral mucous membranes Neck: no nuchal rigidity Respiratory: normal respiratory effort Auscultation: + diminished lung sounds Cardiovascular: RRR, no murmur, no edema Gastrointestinal (Abdomen): Inspection/Auscultation: normal bowel sounds Percussion/Palpation: abdomen soft; abdomen nontender Musculoskeletal: Extremities: strength 5/5 throughout Skin: no rashes, warm and dry BL TMA, R w/ seepage Neurologic: benjamin, fluent speech, no tremor Results & Data Vital Signs (Past 12 Hours) Vital Signs Temp Pulse Pulse Resp BP Pulse Ox O2 Del Method 04/03/23 07:38 87 04/03/23 07:14 36.7 C 85 18 113/70 97 Room Air 04/03/23 03:44 36.9 C 65 20 124/69 95 Room Air 04/02/23 23:52 81 04/02/23 22:50 36.6 C 84 16 111/61 96 Room Air Laboratory Results 04/03/23 05:30 04/03/23 05:[address] Head No acute intracranial hemorrhage, no evidence of acute territorial infarction or other acute intracranial disease process.
[2023-04-03] MEDS ORDERED: SODIUM CHLORIDE 0.9% 1000ML 1,000 ML IV PRN (13:56)
[2023-04-03] MEDS ORDERED: HEPARIN SOD (PORCINE) 1000 UNIT/ML IV ONE (13:56)
--- NOTE | 2023-04-03 14:05 | Hospitalist Progress Note ---
Date of Service April 03, 2023 Assessment & Plan (1) Symptomatic anemia: (2) ESRD (end stage renal disease): (3) Generalized weakness: (4) T2DM (type 2 diabetes mellitus): (5) HTN (hypertension): (6) HLD (hyperlipidemia): (7) PVD (peripheral vascular disease): (8) Pancytopenia: (9) Foot osteomyelitis, left: (10) Wound of right foot: Plan 78-year-old male who has a significant past medical history of HTN, HLD, PVD, uncontrolled T2DM, pancytopenia, glaucoma and 3 recent hospitalizations starting at the [facility] in [place] and 2 in [facility] starting in early January. 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, culture grew MRSA and enterococcus Recent renal failure and was started on HD Also started on antiseizure meds for seizure Symptomatic anemia Hb was 6.6 on admission S/p 1 PRBC Hb is 8 today Has leukopenia as well Anemia likely in setting of renal disease; however pt has required transfusions during hospital stay, may need GI consult, although pt denies dark stools, vs antibiotics place on PPI empirically for now, obtain FOBT CKD that has since resulted in HD with tunneled cath in place On 02/14 cr was 1.51 Reported he was started on HD during recent hospitalizations Cr is 9.11 on admisson He is on HD MWF, last treatment friday Discussed with Nephro. 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 Will get MRI of right foot to reassess OM Seizure d/o Cefepime induced encephalopathy Per H&P report During recent hospitalizations patient underwent multiple EEGs. 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 He continued to have seizure despite Keppra load and therefore was placed on Keppra 500 mg twice daily with additional Keppra dose after hemodialysis on Friday Uncontrolled T2DM Hba1c 8.9 during last hospital stay HbA1c is 6.5 today Had hypoglycemia this morning Lantus stopped. Continue sliding scale for now Will monitor and determine adjustment to diabetic regimen on dc Hold pioglitazone DM educator consult HTN Continue amlodipine HLD Continue statins DVT prophylaxis: none in setting of anemia, if bleeding ruled out consider chemical ppx, will hold on scds for now in setting of pvd FULL CODE PCP: In OYCASTA anderson I spent a total of 55 minutes coordinating, documenting and providing care for this patient excluding time spent in performance of separately billed services Admission and Anticipated Discharge Date Admission Date: April 02, 2023 Subjective Patient seen and examined Reports feeling better today Reports fatigue he had on admission is almost resolved Denies any dizziness, tremors, chest pain, cough, shortness of breath, nausea, vomiting, diarrhea, abd pain Reports some left shoulder pain which he stated started on waking up this morning Patient reports he occasionally has drainage (serous and occasionally bloody) from surgical site on right foot Denied any fevers, chills Physical Exam Constitutional: + well hydrated; no acute distress Eyes: PERRL, conjunctivae normal, anicteric sclerae ENMT: external ear and nose normal, oropharynx normal Respiratory: normal respiratory effort, lungs clear to auscultation Cardiovascular: Rate/Rhythm: regular rate and regular rhythm S1 S2 Gastrointestinal (Abdomen): normal bowel sounds, soft, nontender, no hepatosplenomegaly Musculoskeletal: s/p b/l partial foot amputations. Left is well healed Right foot healing well but has a small opening (better seen on scanned wound care images) No erythema/tenderness/edema Neurologic: PERRL, EOMI, accommodation nl, no face palsy, no dysarthria Psychiatric: A+Ox3, euthymic affect Results & Data Results & Data Vital Signs (Past 12 Hours) Vital Signs Temp Pulse Pulse Resp BP Pulse Ox O2 Del Method 04/03/23 11:13 36.8 C 83 16 159/73 H 97 Room Air 04/03/23 07:38 87 04/03/23 07:14 36.7 C 85 18 113/70 97 Room Air 04/03/23 03:44 36.9 C 65 20 124/69 95 Room Air Laboratory Results Abnormal lab results 04/02/23 04/02/23 04/02/23 Range/Units 12:00 18:05 21:21 WBC (4.8-10.8) K/ul RBC (4.70-6.10) M/uL Hgb 7.9 L (14.0-18.0) g/dl Hct 22.6 L (42.0-52.0) % RDW Std Deviation (36.4-46.3) fL RDW Coeff of Erica (11.5-14.5) % MPV (9.4-12.4) fL Neut # (Auto) (1.40-6.50) K/uL Anion Gap (3-11) BUN (6-23) mg/dl Creatinine (0.6-1.4) mg/dl BUN/Creatinine Ratio (10-20) Glucose (70-99(Fasting)) mg/dl POC Glucose 100 H (70-99) mg/dl Hemoglobin A1c (4.5-5.6) % Calcium (8.6-10.3) mg/dl Iron 27 L (35-175) mcg/dl Ferritin 584.3 H (8-388) ng/ml AST (13-39) U/L ALT (7-52) U/L Albumin (3.4-5.0) gm/dl 04/03/23 04/03/23 04/03/23 Range/Units 05:30 05:30 05:30 WBC 2.98 L (4.8-10.8) K/ul RBC 2.75 L (4.70-6.10) M/uL Hgb 8.0 L (14.0-18.0) g/dl Hct 23.4 L (42.0-52.0) % RDW Std Deviation 46.4 H (36.4-46.3) fL RDW Coeff of Erica 15.1 H (11.5-14.5) % MPV 8.6 L (9.4-12.4) fL Neut # (Auto) 1.05 L (1.40-6.50) K/uL Anion Gap 13 H (3-11) BUN 58 H (6-23) mg/dl Creatinine 10.43 H* D (0.6-1.4) mg/dl BUN/Creatinine Ratio 5.6 L (10-20) Glucose 45 L* (70-99(Fasting)) mg/dl POC Glucose (70-99) mg/dl Hemoglobin A1c 6.5 H (4.5-5.6) % Calcium 8.2 L (8.6-10.3) mg/dl Iron (35-175) mcg/dl Ferritin (8-388) ng/ml AST 10 L (13-39) U/L ALT 6 L (7-52) U/L Albumin 3.1 L (3.4-5.0) gm/dl 04/03/23 04/03/23 Range/Units 08:05 11:52 WBC (4.8-10.8) K/ul RBC (4.70-6.10) M/uL Hgb (14.0-18.0) g/dl Hct (42.0-52.0) % RDW Std Deviation (36.4-46.3) fL RDW Coeff of Erica (11.5-14.5) % MPV (9.4-12.4) fL Neut # (Auto) (1.40-6.50) K/uL Anion Gap (3-11) BUN (6-23) mg/dl Creatinine (0.6-1.4) mg/dl BUN/Creatinine Ratio (10-20) Glucose (70-99(Fasting)) mg/dl POC Glucose 110 H 114 H (70-99) mg/dl Hemoglobin A1c (4.5-5.6) % Calcium (8.6-10.3) mg/dl Iron (35-175) mcg/dl Ferritin (8-388) ng/ml AST (13-39) U/L ALT (7-52) U/L Albumin (3.4-5.0) gm/dl
[2023-04-03] MEDS ORDERED: EPOETIN ALFA 10,000 UNITS/ML VIAL IV ONE (14:15)
[2023-04-03] MEDS: HEPARIN SOD (PORCINE) 1000 UNIT/ML IV SCH ×2 (16:10→17:34)
[2023-04-03] MEDS ORDERED: levETIRAcetam 500 MG TAB PO ONE (18:45)
[2023-04-03] MEDS: oxyCODONE HCL IR 5 MG TAB (IMMEDIATE RELEASE) PO PRN (19:35)
[2023-04-03] MEDS: LATANOPROST 0.005% OP SOLN 2.5 ML BTL OP SCH (20:41)
[2023-04-03] MEDS: ATORVASTATIN 40 MG TAB PO SCH (20:53)
--- NOTE | 2023-04-04 00:53 | Magnetic Resonance Report ---
Exam(s): MRI RIGHT ANKLE Without Contrast EXAM: MR Right Lower Extremity Without Intravenous Contrast, Ankle CLINICAL HISTORY: Reason for exam: rule out Osteomyelitis. TECHNIQUE: Multiplanar magnetic resonance images of the right ankle without intravenous contrast. COMPARISON: No relevant prior studies available. FINDINGS: Status post transmetatarsal amputation. Associated, dorsal ulceration overlying the first metatarsal stump. Mild subjacent edema is consistent with soft tissue infection. No fluid collection or abscess. Positive for osteomyelitis within the first metatarsal stump, consisting of marrow edema and marrow infiltration. No definite osteomyelitis of the second, third, fourth, or fifth metatarsal stumps. Intact medial and lateral malleoli. Intact subtalar, calcaneocuboid, and talonavicular joints. Intact distal Achilles tendon. Thickening of the medial cord of plantar fascia. Moderate heel spur. Synovitis in the sinus tarsi. IMPRESSION: Status post transmetatarsal amputation. Associated, dorsal ulceration overlying the first metatarsal stump. Mild subjacent edema is consistent with soft tissue infection. No fluid collection or abscess. POSITIVE FOR OSTEOMYELITIS within the first metatarsal stump, consisting of marrow edema and marrow infiltration. Electronically signed by: Gerald Harp MD 04/04/23 00:53 AM
[2023-04-04] MEDS: levETIRAcetam 500 MG TAB PO SCH ×3 (05:22→17:46)
[2023-04-04 06:37] LABS: Hematocrit (blood only) 23.7 % (42.0-52.0); Hemoglobin 8.2 g/dl (14.0-18.0); Mean Corpuscular Hemoglobin 29.3 pg (25.0-34.0); Mean Corpuscular Hgb Conc 34.6 g/dL (32.0-36.0); Mean Corpuscular Volume 84.6 fL (80.0-100.0); Mean Platelet Volume 8.5 fL (9.4-12.4); Platelet Count 148 K/uL (130-400); RDW Coefficient of Variation 15.6 % (11.5-14.5); RDW Standard Deviation 48.2 fL (36.4-46.3); White Blood Count 2.67 K/ul (4.8-10.8)
[2023-04-04] MEDS ORDERED: HEPARIN SOD (PORCINE) 1000 UNIT/ML IV ONE (06:41)
[2023-04-04] MEDS ORDERED: SODIUM CHLORIDE 0.9% 1000ML 1,000 ML IV PRN (06:41)
[2023-04-04] MEDS ORDERED: EPOETIN ALFA 20,000 UNITS/ML VIAL IV ONE (06:41)
[2023-04-04 06:58] LABS: Albumin Globulin Ratio 0.9 (0.9-2); Albumin Level 3.2 gm/dl (3.4-5.0); BUN Creatinine Ratio 5.1 (10-20); Bilirubin,Total 0.4 mg/dl (0.2-1.0); Calcium 8.1 mg/dl (8.6-10.3); Creatinine Clr Calc Pharmacy 10.1 ml/min; Est GFR (African American) 8.5 ml/min; Est GFR (Non-African American) 7.3 ml/min; Globulin 3.5 gm/dl (2.5-4.0); Magnesium 1.8 mg/dl (1.7-2.4); Potassium 4.3 mmol/L (3.5-5.1); Total Protein 6.7 gm/dl (6.0-8.3)
[2023-04-04 07:35] LABS: Basophils # (auto) 0.03 K/uL (0-0.2); Basophils % (auto) 1.1 %; Eosinophils # (auto) 0.14 K/uL (0-0.50); Eosinophils % (auto) 5.2 %; Hypochromasia Present; Immature Granulocytes # (auto) 0.03 K/uL (0.01-0.20); Immature Granulocytes % (auto) 1.1 %; Lymphocytes # (auto) 1.12 K/uL (1.2-3.4); Lymphocytes % (auto) 41.9 %; Monocytes # (auto) 0.47 K/uL (0.11-0.59); Monocytes % (auto) 17.6 %; Neutrophils # (auto) 0.88 K/uL (1.40-6.50); Neutrophils % (auto) 33.1 %
--- NOTE | 2023-04-04 07:47 | XRay Report ---
XR shoulder LT min 2V routine CLINICAL HISTORY: Left shoulder pain. COMPARISON: None FINDINGS: No acute fracture is identified. There is moderate joint space narrowing with osteophytosi s of the left acromioclavicular joint. There is glenohumeral joint osteophytosis. Moderate vascular c alcification is incidentally noted. IMPRESSION: 1. No acute fracture or dislocation within the left shoulder. 2. Moderate degenerative changes within the left shoulder. ACT 112: Negative or not required by law. Electronically signed by: Jamir Marcus M.D. 04/04/2023 7:45 AM
[2023-04-04] MEDS: oxyCODONE HCL IR 5 MG TAB (IMMEDIATE RELEASE) PO PRN ×3 (08:17→20:29)
[2023-04-04] MEDS: SEVELAMER HCL 800 MG TABLET PO SCH ×3 (08:18→17:44)
[2023-04-04] MEDS: ASPIRIN 81 MG ECTAB PO SCH (08:19)
[2023-04-04] MEDS: CYANOCOBALAMIN (B-12) 500 MCG TABLET PO SCH (08:20)
[2023-04-04] MEDS: DORZOLAMIDE HCL 2% OPH SOLN 10 ML BTL OP SCH ×3 (08:21→20:28)
[2023-04-04] MEDS: CEROVITE ADV FORMULA TAB PO SCH ×2 (08:22→20:28)
[2023-04-04] MEDS: PANTOprazole 40 MG TAB PO SCH ×2 (08:22→20:28)
[2023-04-04] MEDS: INSULIN ASPART PER UNIT CHARGE SC SCH ×4 (08:34→20:27)
[2023-04-04 09:31] LABS: Appearance Urine Clear (Clear); Bacteria Urine Automated Negative (Negative); Bilirubin Urine Negative (Negative); Blood Urine Negative (Negative); Cast Urine Automated 0 /lpf (0-5); Color Urine Yellow; Glucose Urine UA Trace (Negative); Ketones Urine Negative (Negative); Leukocyte Esterase Urine Negative (Negative); Nitrite Urine Negative (Negative); RBC Urine Automated 0-4 /hpf (0-4); Specific Gravity Urine 1.007 (1.000-1.030); Urobilinogen Urine Negative (Negative)
[2023-04-04 09:32] LABS: HBSAG NON-REACTIVE (NON-REACTIVE); Hepatitis B Surface Ab, Quant 249 mIU/mL (> OR = 10)
[2023-04-04 09:39] LABS: Protein Urine 2+ (Negative)
--- NOTE | 2023-04-04 12:56 | Hospitalist Progress Note ---
Date of Service April 04, 2023 Assessment & Plan (1) Symptomatic anemia: (2) ESRD (end stage renal disease): (3) Generalized weakness: (4) T2DM (type 2 diabetes mellitus): (5) HTN (hypertension): (6) HLD (hyperlipidemia): (7) PVD (peripheral vascular disease): (8) Pancytopenia: (9) Foot osteomyelitis, left: (10) Wound of right foot: Plan 78-year-old male who has a significant past medical history of HTN, HLD, PVD, uncontrolled T2DM, pancytopenia, glaucoma and 3 recent hospitalizations starting at the [facility] in [place] and 2 in [facility] starting in early January. 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 MRI of right foot reported osteomyelitis of first metatarsal stump Start daptomycin based on ID recs from recent hospitalizations ID consult Podiatry consult Seizure d/o Per H&P report During recent hospitalizations patient underwent multiple EEGs. 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 Currently on Keppra 500 mg twice daily with additional Keppra dose after hemodialysis on Friday Uncontrolled T2DM Hba1c 8.9 during last hospital stay HbA1c is 6.5 on 04/03/23 Had hypoglycemia on 04/03/23 Lantus stopped. Continue sliding scale for now Will monitor and determine adjustment to diabetic regimen on dc Hold pioglitazone DM educator consult HTN Continue amlodipine HLD Continue statins DVT prophylaxis: none in setting of anemia, if bleeding ruled out consider chemical ppx, will hold on scds for now in setting of pvd FULL CODE PCP: In YOCASTA anderson I spent a total of 55 minutes coordinating, documenting and providing care for this patient excluding time spent in performance of separately billed services Admission and Anticipated Discharge Date Admission Date: April 02, 2023 Subjective Patient seen and examined in HD unit Reports feeling better today with respect to fatigue Reports left shoulder pain. Denied any nausea, vomiting, abd pain, diarrhea Physical Exam Constitutional: + well hydrated; no acute distress Eyes: PERRL, conjunctivae normal, anicteric sclerae ENMT: external ear and nose normal, oropharynx normal Respiratory: normal respiratory effort, lungs clear to auscultation Cardiovascular: Rate/Rhythm: regular rate and regular rhythm S1 S2 Gastrointestinal (Abdomen): normal bowel sounds, soft, nontender, no hepatosplenomegaly Musculoskeletal: s/p b/l partial foot amputations. Left is well healed Right foot stump has a small opening (better seen on scanned wound care images) No erythema/tenderness/edema Neurologic: PERRL, EOMI, accommodation nl, no face palsy, no dysarthria Psychiatric: A+Ox3, euthymic affect Results & Data Results & Data Vital Signs (Past 12 Hours) Vital Signs Temp Pulse Pulse Pulse Resp BP BP 04/04/23 12:30 93 H 125/71 04/04/23 12:00 94 H 140/76 04/04/23 11:30 93 H 134/76 04/04/23 11:00 93 H 139/74 04/04/23 10:30 82 143/80 H 04/04/23 10:00 95 H 135/73 04/04/23 09:30 96 H 142/97 H 04/04/23 09:30 95 H 04/04/23 09:23 37 C 99 H 04/04/23 09:45 96 H 137/70 04/04/23 09:23 37 C 99 H 150/75 H 04/04/23 07:59 37.5 C 93 H 20 164/74 H 04/04/23 03:00 36.9 C 92 H 18 129/73 04/04/23 00:59 91 H Pulse Ox O2 Del Method 04/04/23 12:30 04/04/23 12:00 04/04/23 11:30 04/04/23 11:00 04/04/23 10:30 04/04/23 10:00 04/04/23 09:30 04/04/23 09:30 04/04/23 09:23 04/04/23 09:45 04/04/23 09:23 04/04/23 07:59 96 Room Air 04/04/23 03:00 97 Room Air 04/04/23 00:59
[2023-04-04 13:44] LABS: Phosphorus 3.4 mg/dl (2.5-4.9)
[2023-04-04] MEDS: amLODIPine BESYLATE 5 MG TAB PO SCH (13:51)
[2023-04-04] MEDS ORDERED: DAPTOmycin 825 MG in SYRINGE 0 ML IV SCH (14:00)
[2023-04-04] MEDS: LIDOCAINE 5% 1 PATCH TD SCH (14:59)
--- NOTE | 2023-04-04 16:19 | Orthopedic Consultation ---
Date of Consultation April 04, 2023 Assessment & Plan (1) Wound of right foot: Patient seen, evaluated, and treated. Reviewed history and recent MRI results showing (+)OM. Discussed resection of 1st Metatarsal bone for culture and sensitivities. Reviewed procedure in detail. Tentative surgical intervention date 04/06/23 (2) Foot osteomyelitis, left: History of Present Illness Attending Physician: Elayne Rodriguez MD History of Present Illness Patient is a type II diabetic, 78 year old male who is seen at bedside for left foot first metatarsal osteomyelitis. Patient has a past medical history significant for HTN, HLD, PVD, uncontrolled T2DM, pancytopenia, glaucoma. Patient has bilateral TMAs. He is poor historian and much of history is obtained from previous documentation. Patient has had 3 recent hospitalizations starting at the [facility] in [place] and 2 in [facility] starting in early January. Patient initially underwent localized debridement to his bilateral feet at [facility] on 01/29/2023. During the hospital stay patient was placed on IV vancomycin and cefepime via PICC line. Deep wound culture of his foot on 02/11 revealed MRSA and Enterococcus facialis both sensitive to vancomycin. At some time patient underwent bilateral TMA secondary to the osteomyelitis. Patient was re hospitalized at [facility] on 02/24 to 03/06/2023. On admission on 02/24 he was found to have a BUN of 46 and a creatinine of 5.0. At that time he was also found to have leukopenia and hemoglobin of 7.0. Nephrology was consulted and patient was started on hemodialysis. 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 He was started on daptomycin and Zosyn and infectious disease was following. He underwent I&D of right foot on 03/02 and is to follow-up with podiatry upon discharge. His hospital course was further complicated with acute encephalopathy. He was seen and evaluated by neurology and EEG was complete. It was felt patient was suffering from cefepime induced neurotoxicity given EEG findings and improvement with time off cefepime. He was initially placed on Keppra due to concern for possible seizure disorder but this was discontinued. He underwent tunneled dialysis catheter placement on 03/04. He was then discharged to subacute rehab to continue daptomycin and Zosyn till 03/28 with weekly labs. He then represented back to the hospital on 03/10 and was admitted through 03/15/2023 secondary to altered mental status. CT head, though motion compromised, showed no acute findings. Lab work revealed BUN 36, creatinine 10.6 and hemoglobin of 6.5. It was determined that patient had still been on cefepime at [facility] despite being discontinued. Again it was thought that it was neurotoxicity secondary to cefepime although mental status did not significantly improve after discontinuation. An EEG was performed which showed nonconvulsive status epilepticus and so he was loaded with Keppra and moved to neuro PCU for continuous EEG monitoring. EEG showed further seizures despite Keppra loading and was given additional Keppra and Ativan. Neurology recommended giving extra 500 mg dose of Keppra after hemodialysis. In regards to his left foot osteomyelitis ID recommended daptomycin. Blood cultures were negative to date. In regards to his pancytopenia he did require 2 units of PRBCs and hemoglobin was stable at 9.1 on discharge. He was scheduled Friday for dialysis and is to continue to have extra 5 mg dose of Keppra after each dialysis. His A1c during hospital stay was 8.9 which revealed overall poor control. He was then discharged back to [facility] in medically stable condition. Patient admitted to [facility] on 04/02/23 for general weakness. MRI taken at that time shows right foot first metatarsal osteomyelitis with Chronic right foot DFU. Allergies Allergy/AdvReac Type Severity Reaction Status Date / Time cefepime Allergy Unknown SEE COMMENT Verified 04/02/23 15:54 simvastatin AdvReac Intermediate Gastrointestinal Verified 04/02/23 15:52 Upset Home Medications Medication Instructions Recorded Confirmed Type amlodipine 5 mg tablet 5 mg PO DAILY 04/02/23 04/02/23 History apple cider vinegar 500 mg tablet 1,000 mg PO DAILY 04/02/23 04/02/23 History aspirin 81 mg tablet,delayed 81 mg PO DAILY 04/02/23 04/02/23 History release atorvastatin 40 mg tablet 40 mg PO HS 04/02/23 04/02/23 History cyanocobalamin (vitamin B-12) 1,000 mcg PO DAILY 04/02/23 04/02/23 History 1,000 mcg tablet (Vitamin B-12) diclofenac sodium 1 % topical gel 2 g topical TID PRN Pain 04/02/23 04/02/23 History dorzolamide 2 % eye drops 1 drp ophthalmic (eye) TID 04/02/23 04/02/23 History garlic 1,000 mg capsule (garlic 1,000 mg PO DAILY 04/02/23 04/02/23 History oil) hydrocodone 5 mg-acetaminophen 325 1 tab PO BID PRN Pain 04/02/23 04/02/23 History mg tablet insulin glargine 100 unit/mL 10 unit subcut QAM 04/02/23 04/02/23 History subcutaneous solution latanoprost 0.005 % eye drops 1 drp ophthalmic (eye) PM 04/02/23 04/02/23 History levetiracetam 500 mg tablet 500 mg PO MOWEFR 04/02/23 04/02/23 History (Keppra) levetiracetam 500 mg tablet 500 mg PO Q12H 04/02/23 04/02/23 History (Keppra) pioglitazone 30 mg tablet 30 mg PO DAILY 04/02/23 04/02/23 History povidone-iodine 10 % topical 1 applic topical DAILY PRN BLISTER 04/02/23 04/02/23 History solution ON FOOT sevelamer HCl 800 mg tablet 2,400 mg PO TID 04/02/23 04/02/23 History sildenafil 100 mg tablet 100 mg PO DAILY PRN NEEDED 04/02/23 04/02/23 History vitamins A,C,E-cegm-rctzef 2,148 1 tab PO BID 04/02/23 04/02/23 History mcg-113 mg-45 mg-17.4 mg tablet (PreserVision AREDS) Patient History Medical History Dependence on renal dialysis Glaucoma HLD (hyperlipidemia) HTN (hypertension) Pancytopenia PVD (peripheral vascular disease) T2DM (type 2 diabetes mellitus) Surgical History 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 Family History Father Cancer Colorectal cancer Mother Old age Social History Smoking Status: Never smoker Hx Alcohol Use: No Hx Substance Use: No Preferred Language: German Communication Ability: Effective Countersinker Required: No Beliefs That Will Affect Care: None marital status: Current Living Situation: Spouse Other Information That Helps Us Care for You: No Feels Safe at Home: Yes Safety Concerns: Feels Safe At This Time Assistive Devices: Cane and Walker Review of Systems Review of Systems: All systems reviewed & are unremarkable except as noted in HPI & below Physical Exam Constitutional: cooperative and comfortable Respiratory: normal respiratory effort Cardiovascular: Rate/Rhythm: regular rate and regular rhythm Musculoskeletal: Extremities: + foot abnormality Left (TMA) Skin: + ulcer (Right foot dorsal full thickness ulcer) Neurologic: moves all extremities (loss of epicritic sensation) Psychiatric: Orientation: alert, oriented to person and cooperative Results & Data Vital Signs (Past 12 Hours) Vital Signs Temp Pulse Pulse Pulse Pulse Resp BP 04/04/23 16:12 37.8 C H 93 H 17 04/04/23 13:31 37.1 C 99 H 18 04/04/23 13:21 36.6 C 93 H 04/04/23 12:54 93 H 127/67 04/04/23 12:30 93 H 125/71 04/04/23 12:00 94 H 140/76 04/04/23 11:30 93 H 134/76 04/04/23 11:00 93 H 139/74 04/04/23 10:30 82 143/80 H 04/04/23 10:00 95 H 135/73 04/04/23 09:30 96 H 142/97 H 04/04/23 09:30 95 H 04/04/23 09:23 37 C 99 H 04/04/23 09:45 96 H 137/70 04/04/23 09:23 37 C 99 H 150/75 H 04/04/23 07:59 37.5 C 93 H 20 BP Pulse Ox O2 Del Method 04/04/23 16:12 131/76 95 Room Air 04/04/23 13:31 146/76 H 98 Room Air 04/04/23 13:21 126/68 04/04/23 12:54 04/04/23 12:30 04/04/23 12:00 04/04/23 11:30 04/04/23 11:00 04/04/23 10:30 04/04/23 10:00 04/04/23 09:30 04/04/23 09:30 04/04/23 09:23 04/04/23 09:45 04/04/23 09:23 04/04/23 07:59 164/74 H 96 Room Air Diagnostic Findings Exam(s): MRI RIGHT ANKLE Without Contrast EXAM: MR Right Lower Extremity Without Intravenous Contrast, Ankle CLINICAL HISTORY: Reason for exam: rule out Osteomyelitis. TECHNIQUE: Multiplanar magnetic resonance images of the right ankle without intravenous contrast. COMPARISON: No relevant prior studies available. FINDINGS: Status post transmetatarsal amputation. Associated, dorsal ulceration overlying the first metatarsal stump. Mild subjacent edema is consistent with soft tissue infection. No fluid collection or abscess. Positive for osteomyelitis within the first metatarsal stump, consisting of marrow edema and marrow infiltration. No definite osteomyelitis of the second, third, fourth, or fifth metatarsal stumps. Intact medial and lateral malleoli. Intact subtalar, calcaneocuboid, and talonavicular joints. Intact distal Achilles tendon. Thickening of the medial cord of plantar fascia. Moderate heel spur. Synovitis in the sinus tarsi. IMPRESSION: Status post transmetatarsal amputation. Associated, dorsal ulceration overlying the first metatarsal stump. Mild subjacent edema is consistent with soft tissue infection. No fluid collection or abscess. POSITIVE FOR OSTEOMYELITIS within the first metatarsal stump, consisting of marrow edema and marrow infiltration. Electronically signed by: Gerald Harp MD 04/04/23 00:53 AM Dictated:04/04/23 0053 Transcribed: 04/04/23 0053
--- NOTE | 2023-04-04 16:58 | Nephrology Progress Note ---
Date of Service April 04, 2023 Assessment & Plan (1) Dependence on renal dialysis: Plan: unclear if HEMANT on ESRD-need records from outside unit when then open in AM but clinical profile fits ESRD -plan routine HD today >> tolerated 3L fluid removal w/o issues -strict I/O -daily bmp, cbc ->>continue 500 mg supplemental keppra post HD >if he dialyzes on non routine HD days, needs supplemental keppra as above -agree w/ dialysis diet, 1.5L FR (2) Symptomatic anemia: Plan: s/p pRBC 04/02 which he seems to have tolerated well (3) Leukopenia: Plan: ? relation to abtx or to sepsis or to other -monitor Admission and Anticipated Discharge Date Admission Date: April 02, 2023 Subjective MRI shows R metatarsal stump osteomyelitis; started on dapto; ortho/podiatry/ID c/s's pending. no sob, no n/v. some UOP ON , more than is typical for him. ongoing L shoulder pain; nonradiating. no chest pain or palpitations. no issues on HD yesterday. seen on 0700 rounds. Review of Systems Review of Systems: All systems reviewed & are unremarkable except as noted in Subjective Physical Exam Constitutional: well developed and well nourished; no acute distress (lying flat on RA) Eyes: EOM intact bilaterally ENMT: Ears: no external ear abnormality Nose: no external nose abnormality Mouth: + dry oral mucous membranes Neck: no nuchal rigidity Respiratory: normal respiratory effort Auscultation: + diminished lung sounds Cardiovascular: RRR, no murmur, no edema Gastrointestinal (Abdomen): Inspection/Auscultation: normal bowel sounds Percussion/Palpation: abdomen soft; abdomen nontender Musculoskeletal: Extremities: strength 5/5 throughout Skin: no rashes, warm and dry Neurologic: benjamin, fluent speech, no tremor Results & Data Vital Signs (Past 12 Hours) Vital Signs Temp Pulse Pulse Pulse Pulse Resp BP 04/04/23 16:12 37.8 C H 93 H 17 04/04/23 13:31 37.1 C 99 H 18 04/04/23 13:21 36.6 C 93 H 04/04/23 12:54 93 H 127/67 04/04/23 12:30 93 H 125/71 04/04/23 12:00 94 H 140/76 04/04/23 11:30 93 H 134/76 04/04/23 11:00 93 H 139/74 04/04/23 10:30 82 143/80 H 04/04/23 10:00 95 H 135/73 04/04/23 09:30 96 H 142/97 H 04/04/23 09:30 95 H 04/04/23 09:23 37 C 99 H 04/04/23 09:45 96 H 137/70 04/04/23 09:23 37 C 99 H 150/75 H 04/04/23 07:59 37.5 C 93 H 20 BP Pulse Ox O2 Del Method 04/04/23 16:12 131/76 95 Room Air 04/04/23 13:31 146/76 H 98 Room Air 04/04/23 13:21 126/68 04/04/23 12:54 04/04/23 12:30 04/04/23 12:00 04/04/23 11:30 04/04/23 11:00 04/04/23 10:30 04/04/23 10:00 04/04/23 09:30 04/04/23 09:30 04/04/23 09:23 04/04/23 09:45 04/04/23 09:23 04/04/23 07:59 164/74 H 96 Room Air Laboratory Results 04/04/23 06:11 04/04/23 06:11
[2023-04-04] MEDS: HEPARIN SOD (PORCINE) 1000 UNIT/ML IV SCH (17:36)
[2023-04-04] MEDS: LATANOPROST 0.005% OP SOLN 2.5 ML BTL OP SCH (20:28)
[2023-04-04] MEDS: ACETAMINOPHEN 325 MG TAB PO PRN (20:29)
--- NOTE | 2023-04-04 22:38 | Electrocardiogram Report ---
Test Reason : Blood Pressure : / mmHG Vent. Rate : 084 BPM Atrial Rate : 084 BPM P-R Int : 200 ms QRS Dur : 100 ms QT Int : 390 ms P-R-T Axes : 031 015 026 degrees QTc Int : 460 ms Normal sinus rhythm Normal ECG When compared with ECG of 24-OCT-2004 15:52, No significant change was found Confirmed by Amrit Hussein ([id number]) on 04/04/2023 10:38:31 PM Referred By: Confirmed By:Amrit Hussein
[2023-04-05] MEDS: levETIRAcetam 500 MG TAB PO SCH ×2 (05:48→17:45)
[2023-04-05 06:16] LABS: Hematocrit (blood only) 25.4 % (42.0-52.0); Hemoglobin 8.6 g/dl (14.0-18.0); Mean Corpuscular Hgb Conc 33.9 g/dL (32.0-36.0); Mean Corpuscular Volume 85.5 fL (80.0-100.0); Mean Platelet Volume 8.5 fL (9.4-12.4); Platelet Count 159 K/uL (130-400); RDW Coefficient of Variation 15.9 % (11.5-14.5); Red Blood Count 2.97 M/uL (4.70-6.10); White Blood Count 2.56 K/ul (4.8-10.8)
[2023-04-05 06:40] LABS: Calcium 8.6 mg/dl (8.6-10.3); Creatinine Clr Calc Pharmacy 11.7 ml/min; Est GFR (African American) 10.5 ml/min; Magnesium 1.8 mg/dl (1.7-2.4); Phosphorus 3.3 mg/dl (2.5-4.9); Potassium 4.2 mmol/L (3.5-5.1)
[2023-04-05] MEDS: ASPIRIN 81 MG ECTAB PO SCH (08:48)
[2023-04-05] MEDS: CYANOCOBALAMIN (B-12) 500 MCG TABLET PO SCH (08:48)
[2023-04-05] MEDS: CEROVITE ADV FORMULA TAB PO SCH ×2 (08:48→21:45)
[2023-04-05] MEDS: PANTOprazole 40 MG TAB PO SCH ×2 (08:49→21:45)
[2023-04-05] MEDS: amLODIPine BESYLATE 5 MG TAB PO SCH (08:49)
[2023-04-05] MEDS: LIDOCAINE 5% 1 PATCH TD SCH (08:50)
[2023-04-05] MEDS: DORZOLAMIDE HCL 2% OPH SOLN 10 ML BTL OP SCH ×3 (08:51→21:43)
[2023-04-05] MEDS: SEVELAMER HCL 800 MG TABLET PO SCH ×3 (08:52→17:45)
[2023-04-05] MEDS: INSULIN ASPART PER UNIT CHARGE SC SCH ×4 (08:57→20:58)
[2023-04-05] MEDS: ACETAMINOPHEN 325 MG TAB PO PRN ×2 (08:58→16:18)
--- NOTE | 2023-04-05 11:15 | Hospitalist Progress Note ---
Date of Service April 05, 2023 Assessment & Plan (1) Symptomatic anemia: (2) ESRD (end stage renal disease): (3) Generalized weakness: (4) T2DM (type 2 diabetes mellitus): (5) HTN (hypertension): (6) HLD (hyperlipidemia): (7) PVD (peripheral vascular disease): (8) Pancytopenia: (9) Foot osteomyelitis, left: (10) Wound of right foot: Plan 78-year-old male who has a significant past medical history of HTN, HLD, PVD, uncontrolled T2DM, pancytopenia, glaucoma and 3 recent hospitalizations starting at the [facility] in [place] and 2 in [facility] starting in early January. 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 Had completed iv antibiotics per patient Recent renal failure and was started on HD Also started on antiseizure meds for seizure Symptomatic anemia Hb was 6.6 on admission S/p 1 PRBC Hb has been stable, 8.6 today Has leukopenia as well Anemia likely in setting of renal disease/chronic disease Denied melena or hematochezia. Continue PPI empirically for now ESRD on HD CKD that has since resulted in HD with tunneled cath in place On 02/14 cr was 1.51 He was started on HD during recent hospitalizations Cr is 9.11 on admisson He is on HD MWF S/P TMA bilaterally L Foot osteomyelitis s/p treatment +MRSA and enterococcus faecialis PVD R 1st metatarsal stump osteomyelitis store person noted wound probes to bone on right foot. MRI of right foot reported osteomyelitis of first metatarsal stump Started daptomycin based on ID recs from recent hospitalizations Awaiting ID evaluation Podiatry planning OR tomorrow. NPO PMN Seizure d/o Per H&P report During recent hospitalizations patient underwent multiple EEGs. 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 Currently on Keppra 500 mg twice daily with additional Keppra dose after hemodialysis on Friday Uncontrolled T2DM Hba1c 8.9 during last hospital stay HbA1c is 6.5 on 04/03/23 Had hypoglycemia on 04/03/23 Lantus stopped. Continue sliding scale for now Will monitor and determine adjustment to diabetic regimen on dc Hold pioglitazone DM educator consult HTN Continue amlodipine HLD Continue statins DVT prophylaxis: none in setting of anemia and possible surgery. Ambulate FULL CODE PCP: In YOCASTA anderson I spent a total of 45 minutes coordinating, documenting and providing care for this patient excluding time spent in performance of separately billed services Admission and Anticipated Discharge Date Admission Date: April 02, 2023 Subjective Patient seen and examined Report no fatigue today Denied any new complaints today No fever, chills, nausea, vomiting No pain in feet. Reports occasional paresthesia Physical Exam Constitutional: + well hydrated; no acute distress Eyes: PERRL, conjunctivae normal, anicteric sclerae ENMT: external ear and nose normal, oropharynx normal Respiratory: normal respiratory effort, lungs clear to auscultation Cardiovascular: Rate/Rhythm: regular rate and regular rhythm S1 S2 Gastrointestinal (Abdomen): normal bowel sounds, soft, nontender, no hepatosplenomegaly Musculoskeletal: Clean dressing over Right foot stump No pedal edema Neurologic: PERRL, EOMI, accommodation nl, no face palsy, no dysarthria Psychiatric: A+Ox3, euthymic affect Results & Data Results & Data Vital Signs (Past 12 Hours) Vital Signs Temp Pulse Pulse Resp BP Pulse Ox O2 Del Method 04/05/23 08:00 37.5 C 90 19 L 19 156/79 H 96 Room Air 04/05/23 03:00 37.2 C 83 16 128/74 16 L Room Air Laboratory Results Abnormal lab results 04/04/23 04/04/23 04/04/23 Range/Units 06:11 13:23 16:40 WBC (4.8-10.8) K/ul RBC (4.70-6.10) M/uL Hgb (14.0-18.0) g/dl Hct (42.0-52.0) % RDW Std Deviation (36.4-46.3) fL RDW Coeff of Erica (11.5-14.5) % MPV (9.4-12.4) fL BUN 34 H D (6-23) mg/dl Creatinine (0.6-1.4) mg/dl BUN/Creatinine Ratio (10-20) Glucose (70-99(Fasting)) mg/dl POC Glucose 179 H 135 H (70-99) mg/dl Total Creatine Kinase (30-223) U/L 04/04/23 04/05/23 04/05/23 Range/Units 20:23 05:50 05:50 WBC 2.56 L (4.8-10.8) K/ul RBC 2.97 L (4.70-6.10) M/uL Hgb 8.6 L (14.0-18.0) g/dl Hct 25.4 L (42.0-52.0) % RDW Std Deviation 50.0 H (36.4-46.3) fL RDW Coeff of Erica 15.9 H (11.5-14.5) % MPV 8.5 L (9.4-12.4) fL BUN 28 H (6-23) mg/dl Creatinine 5.58 H* D (0.6-1.4) mg/dl BUN/Creatinine Ratio 5.0 L (10-20) Glucose 138 H (70-99(Fasting)) mg/dl POC Glucose 148 H (70-99) mg/dl Total Creatine Kinase 27 L (30-223) U/L 04/05/23 Range/Units 07:40 WBC (4.8-10.8) K/ul RBC (4.70-6.10) M/uL Hgb (14.0-18.0) g/dl Hct (42.0-52.0) % RDW Std Deviation (36.4-46.3) fL RDW Coeff of Erica (11.5-14.5) % MPV (9.4-12.4) fL BUN (6-23) mg/dl Creatinine (0.6-1.4) mg/dl BUN/Creatinine Ratio (10-20) Glucose (70-99(Fasting)) mg/dl POC Glucose 141 H (70-99) mg/dl Total Creatine Kinase (30-223) U/L
[2023-04-05] MEDS: LATANOPROST 0.005% OP SOLN 2.5 ML BTL OP SCH (21:43)
[2023-04-06] MEDS: ACETAMINOPHEN 325 MG TAB PO PRN ×4 (03:39→21:03)
[2023-04-06 06:14] LABS: Hematocrit (blood only) 23.7 % (42.0-52.0); Hemoglobin 8.1 g/dl (14.0-18.0); Mean Corpuscular Hemoglobin 28.9 pg (25.0-34.0); Mean Corpuscular Hgb Conc 34.2 g/dL (32.0-36.0); Mean Corpuscular Volume 84.6 fL (80.0-100.0); Mean Platelet Volume 8.5 fL (9.4-12.4); Platelet Count 180 K/uL (130-400); RDW Coefficient of Variation 15.9 % (11.5-14.5); RDW Standard Deviation 48.4 fL (36.4-46.3)
[2023-04-06] MEDS: levETIRAcetam 500 MG TAB PO SCH ×2 (06:15→17:38)
[2023-04-06 06:38] LABS: Calcium 8.6 mg/dl (8.6-10.3); Creatinine Clr Calc Pharmacy 8.5 ml/min; Potassium 4.6 mmol/L (3.5-5.1)
--- NOTE | 2023-04-06 08:35 | History & Physical Bridge Note ---
Date of Service April 06, 2023 History & Physical Bridge Note I have examined the patient, reviewed the History & Physical and in the interval since the performance of the History & Physical I have noted the following changes of clinical significance: no changes noted
[2023-04-06] MEDS ORDERED: MIDAZOLAM HCL 1 MG/ML 2ML VIAL ONE (08:44)
[2023-04-06] MEDS ORDERED: LIDOCAINE 2% 2 ML VIAL/AMP(20MG/ML) INFIL ONE (08:44)
[2023-04-06] MEDS ORDERED: PROPOFOL IV EMULSION 10 MG/ML 20 ML VIAL IV ONE (08:44)
[2023-04-06] MEDS ORDERED: fentaNYL citrate PF 100 MCG/2 ML VIAL ONE (08:45)
[2023-04-06] MEDS ORDERED: KETAMINE 50 MG/5 ML SYRINGE ONE (08:45)
--- NOTE | 2023-04-06 08:50 | Anesthesiology Consultation ---
Date of Service April 06, 2023 Assessment & Plan Chart Review Chart Review: Acceptable Risk for Surgery Consults Requested none History Surgery Operation Date: 04/06/23 08:30 Proposed Procedures p Amputation Transmetatarsal 1st, right foot(Right) - Bonifacio Hess, DPM, MS Height/Weight Height: 5 ft 8 in Weight: 86.6 kg Allergies Allergy/AdvReac Type Severity Reaction Status Date / Time cefepime Allergy Unknown SEE COMMENT Verified 04/02/23 15:54 simvastatin AdvReac Intermediate Gastrointestinal Verified 04/02/23 15:52 Upset Medications Home Medications Medication Instructions Recorded Confirmed Last Taken amlodipine 5 mg tablet 5 mg PO DAILY 04/02/23 04/02/23 04/01/23 apple cider vinegar 500 mg tablet 1,000 mg PO DAILY 04/02/23 04/02/23 04/01/23 aspirin 81 mg tablet,delayed 81 mg PO DAILY 04/02/23 04/02/23 04/01/23 release atorvastatin 40 mg tablet 40 mg PO HS 04/02/23 04/02/23 04/01/23 cyanocobalamin (vitamin B-12) 1,000 mcg PO DAILY 04/02/23 04/02/23 04/01/23 1,000 mcg tablet (Vitamin B-12) diclofenac sodium 1 % topical gel 2 g topical TID PRN Pain 04/02/23 04/02/23 Unknown dorzolamide 2 % eye drops 1 drp ophthalmic (eye) TID 04/02/23 04/02/23 Unknown garlic 1,000 mg capsule (garlic 1,000 mg PO DAILY 04/02/23 04/02/23 04/01/23 oil) hydrocodone 5 mg-acetaminophen 325 1 tab PO BID PRN Pain 04/02/23 04/02/23 Unknown mg tablet insulin glargine 100 unit/mL 10 unit subcut QAM 04/02/23 04/02/23 04/01/23 subcutaneous solution latanoprost 0.005 % eye drops 1 drp ophthalmic (eye) PM 04/02/23 04/02/23 Unknown levetiracetam 500 mg tablet 500 mg PO MOWEFR 04/02/23 04/02/23 Unknown (Keppra) levetiracetam 500 mg tablet 500 mg PO Q12H 04/02/23 04/02/23 Unknown ([facility]) pioglitazone 30 mg tablet 30 mg PO DAILY 04/02/23 04/02/23 04/02/23 povidone-iodine 10 % topical 1 applic topical DAILY PRN BLISTER 04/02/23 04/02/23 Unknown solution ON FOOT sevelamer HCl 800 mg tablet 2,400 mg PO TID 04/02/23 04/02/23 Unknown sildenafil 100 mg tablet 100 mg PO DAILY PRN NEEDED 04/02/23 04/02/23 Unknown vitamins A,C,E-edse-obrktz 2,148 1 tab PO BID 04/02/23 04/02/23 04/01/23 mcg-113 mg-45 mg-17.4 mg tablet (PreserVision AREDS) Active Medications Generic Name Dose Route Start Last Admin Trade Name Freq PRN Reason Stop Dose Admin Acetaminophen 650 mg 04/02/23 18:11 04/06/23 03:39 Acetaminophen 325 Mg Tab PO 05/02/23 18:10 650 mg Q4H PRN Administration Pain or Fever Amlodipine Besylate 5 mg 04/03/23 09:00 04/05/23 08:49 Amlodipine Besylate 5 Mg Tab PO 05/03/23 08:59 5 mg DAILY DILSHAD Administration Aspirin 81 mg 04/03/23 09:00 04/05/23 08:48 Aspirin 81 Mg Ectab PO 05/03/23 08:59 81 mg DAILY DILSHAD Administration Atorvastatin Calcium 40 mg 04/02/23 21:00 04/03/23 20:53 Atorvastatin 40 Mg Tab PO 05/02/23 20:59 40 mg HS DILSHAD Administration Cyanocobalamin 1,000 mcg 04/03/23 09:00 04/05/23 08:48 Cyanocobalamin (B-12) 500 Mcg Tablet PO 05/03/23 08:59 1,000 mcg DAILY DILSHAD Administration Dorzolamide HCl 1 drops 04/02/23 21:00 04/05/23 21:43 Dorzolamide Hcl 2% Oph Soln 10 Ml Btl OP 05/02/23 20:59 1 drops TID DILSHAD Administration Daptomycin 825 mg/ Syringe 16.5 mls @ 8.25 mls/min 04/04/23 14:00 04/04/23 13:38 IV 05/16/23 13:59 8.25 mls/min Fr@1400 DILSHAD Administration Protocol Insulin Aspart 0 units 04/02/23 18:11 04/05/23 20:58 Insulin Aspart Per Unit Charge SC 05/02/23 18:10 Not Given ACHS DILSHAD Latanoprost 1 drops 04/02/23 21:00 04/05/23 21:43 Latanoprost 0.005% Op Soln 2.5 Ml Btl OP 05/02/23 20:59 1 drops PM DILSHAD Administration Levetiracetam 500 mg 04/02/23 18:00 04/06/23 06:15 Levetiracetam 500 Mg Tab PO 05/02/23 17:59 500 mg Q12H DILSHAD Administration Levetiracetam 500 mg 04/04/23 16:00 04/04/23 17:45 Levetiracetam 500 Mg Tab PO 05/04/23 15:59 500 mg MoWeFr@1600 DILSHAD Administration Lidocaine 1 patch 04/04/23 14:00 04/05/23 08:50 Lidocaine 5% 1 Patch TD 05/04/23 13:59 1 patch QAM DILSHAD Administration Miscellaneous 15 - 30 gm 04/02/23 18:11 04/03/23 06:55 Carbohydrates For Hypoglycemia PO 05/02/23 18:10 30 gm UD PRN Administration Hypoglycemia Protocol Miscellaneous 1 each 04/05/23 09:00 04/05/23 09:00 Pending Order N/A 05/05/23 08:59 Not Given SuTuThSa@0900 [facility] Miscellaneous 1 each 04/04/23 21:00 04/05/23 21:43 Remove Lidoderm Patch N/A 05/04/23 20:59 1 each DAILY@2100 DILSHAD Administration Multivitamins/Minerals 1 tab 04/02/23 21:00 04/05/23 21:45 Cerovite Adv Formula Tab PO 05/02/23 20:59 1 tab BID DILSHAD Administration Pantoprazole Sodium 40 mg 04/02/23 21:00 04/05/23 21:45 Pantoprazole 40 Mg Tab PO 05/02/23 20:59 40 mg BID DILSHAD Administration Sevelamer HCl 2,400 mg 04/02/23 18:30 04/05/23 17:45 Sevelamer Hcl 800 Mg Tablet PO 05/02/23 18:29 2,400 mg TIDM DILSHAD Administration NPO Date Last Intake of Fluids: 04/06/23 Time Last Intake of Fluids: 05:00 Last Intake of Fluids Comment: per patient. Date Last Intake of Solids: 04/05/23 Time Last Intake of Solids: 18:00 Last Intake of Solids Comment: per patient. 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 Social History Smoking Status: Never smoker Hx Alcohol Use: No Hx Substance Use: No Physical Exam Vital Signs Last Vital Signs Temp 37.2 C 04/06/23 08:00 Pulse 86 04/06/23 08:00 Resp 18 04/06/23 08:00 BP 134/70 04/06/23 08:00 Pulse Ox 99 04/06/23 08:00 O2 Del Method Room Air 04/06/23 08:00 Testing Laboratory Results 04/06/23 05:13 04/06/23 05:13 PT 11.2 Seconds (9.0-12.0) 04/02/23 12:00 INR 1.0 (0.9-1.1) 04/02/23 12:00 APTT 21.9 Seconds (21.0-31.0) 04/02/23 12:00 Hemoglobin A1c 6.5 % (4.5-5.6) H 04/03/23 05:30 Urine Color Yellow 04/04/23 08:43 Urine Appearance Clear (Clear) 04/04/23 08:43 Urine pH 8.0 (4.5-7.5) H 04/04/23 08:43 Ur Specific [place] 1.007 (1.000-1.030) 04/04/23 08:43 Urine Protein 2+ (Negative) H 04/04/23 08:43 Urine Glucose (UA) Trace (Negative) H 04/04/23 08:43 Urine Ketones Negative (Negative) 04/04/23 08:43 Urine Nitrite Negative (Negative) 04/04/23 08:43 Ur Leukocyte Esterase Negative (Negative) 04/04/23 08:43 Urine WBC (Auto) 1-5 /hpf (0-5) 04/04/23 08:43 Urine RBC (Auto) 0-4 /hpf (0-4) 04/04/23 08:43 U Hyaline Cast (Auto) 0 /lpf (0-5) 04/04/23 08:43 U Epithel Cells (Auto) 5-10 /lpf (0-5) H 04/04/23 08:43 Urine Bacteria (Auto) Negative (Negative) 04/04/23 08:43 Blood Type A Negative 04/02/23 13:53 Antibody Screen NEGATIVE 04/02/23 13:53 04/04/23 17:11 Aerobic Blood Culture - Preliminary Blood No growth in Aerobic bottle after 24 hours. Anaerobic Blood Culture - Preliminary No growth in Anaerobic bottle after 24 hours. 04/04/23 17:14 Aerobic Blood Culture - Preliminary Blood No growth in Aerobic bottle after 24 hours. Anaerobic Blood Culture - Preliminary No growth in Anaerobic bottle after 24 hours.
[2023-04-06] MEDS ORDERED: ATROPINE SULFATE 0.1 MG/ML 10ML SYR IV PRN (08:52)
[2023-04-06] MEDS ORDERED: ePHEDrine sulfate 50 MG/ML AMP IV PRN (08:52)
[2023-04-06] MEDS ORDERED: fentaNYL citrate PF 100 MCG/2 ML VIAL IV PRN (08:52)
--- NOTE | 2023-04-06 09:42 | Post Operative Brief Note ---
Immediate Post Op Note v1 Date of Surgery April 06, 2023 Pre & Post Diagnosis Operation Date: 04/06/23 08:30 Pre-Op Diagnosis: Left foot osteomyelitis. Post-Op Diagnosis: Left foot osteomyelitis. I identified the patient and participated in the time-out.: Yes Procedure Operation Date: 04/06/23 08:30 Actual Procedures p Amputation Transmetatarsal 1st, right foot(Right) - Bonifacio Hess DPM, MS Surgeon Bonifacio Hess DPM, MS Customer Advocacy Manager None Estimated Blood Loss 0 Findings Consistent with Post-Op Diagnosis
[2023-04-06] MEDS: LIDOCAINE 5% 1 PATCH TD SCH (11:21)
[2023-04-06] MEDS: PANTOprazole 40 MG TAB PO SCH ×2 (11:21→21:08)
[2023-04-06] MEDS: CEROVITE ADV FORMULA TAB PO SCH ×2 (11:21→21:07)
[2023-04-06] MEDS: CYANOCOBALAMIN (B-12) 500 MCG TABLET PO SCH (11:22)
[2023-04-06] MEDS: INSULIN ASPART PER UNIT CHARGE SC SCH ×4 (11:22→21:10)
[2023-04-06] MEDS: SEVELAMER HCL 800 MG TABLET PO SCH ×3 (11:22→17:35)
[2023-04-06] MEDS: amLODIPine BESYLATE 5 MG TAB PO SCH (11:22)
[2023-04-06] MEDS: ASPIRIN 81 MG ECTAB PO SCH (11:22)
[2023-04-06] MEDS: DORZOLAMIDE HCL 2% OPH SOLN 10 ML BTL OP SCH ×3 (11:23→21:04)
--- NOTE | 2023-04-06 11:29 | Anesthesiology Progress Note ---
Date of Service April 06, 2023 Anesthesia Post Procedure Vital Signs Vital Signs: Temp Pulse Pulse Pulse Resp BP BP 04/06/23 10:45 36.6 C 81 18 158/83 H 04/06/23 10:15 36.7 C 80 18 151/82 H 04/06/23 10:00 36.2 C L 80 18 136/74 04/06/23 09:50 80 16 141/70 H 04/06/23 09:40 36.0 C L 80 18 132/68 04/06/23 08:00 37.2 C 86 18 134/70 04/06/23 03:33 37.5 C 89 16 114/60 04/05/23 23:30 37.0 C 90 16 134/70 04/05/23 23:19 86 04/05/23 19:42 37.1 C 85 20 107/68 04/05/23 18:33 86 04/05/23 18:00 04/05/23 17:50 36.4 C L 86 21 146/80 H Pulse Ox Pulse Ox O2 Del Method O2 Del Method 04/06/23 10:45 98 Room Air 04/06/23 10:15 98 Room Air 04/06/23 10:00 95 Room Air 04/06/23 09:50 94 Room Air 04/06/23 09:40 95 Room Air 04/06/23 08:00 99 Room Air 04/06/23 03:33 95 Room Air 04/05/23 23:30 97 Room Air 04/05/23 23:19 04/05/23 19:42 96 Room Air 04/05/23 18:33 04/05/23 18:00 96 Room Air 04/05/23 17:50 96 Room Air Pain Intensity Right Foot: Pain Intensity: 3 Left Shoulder: Pain Intensity: 4 Transfer of Care Handoff Completed per policy Notes Mental Status: alert / awake / arousable and participated in evaluation Patient Amnestic to Procedure: Yes Nausea / Vomiting: adequately controlled Pain: adequately controlled Airway Patency, RR, SpO2: stable & adequate BP & HR: stable & adequate Hydration State: stable & adequate Anesthetic Complications: no major complications apparent
--- NOTE | 2023-04-06 11:36 | Hospitalist Progress Note ---
Date of Service April 06, 2023 Assessment & Plan (1) Symptomatic anemia: (2) ESRD (end stage renal disease): (3) Generalized weakness: (4) T2DM (type 2 diabetes mellitus): (5) HTN (hypertension): (6) HLD (hyperlipidemia): (7) PVD (peripheral vascular disease): (8) Pancytopenia: (9) Foot osteomyelitis, left: (10) Wound of right foot: Plan 78-year-old male who has a significant past medical history of HTN, HLD, PVD, uncontrolled T2DM, pancytopenia, glaucoma and 3 recent hospitalizations starting at the [facility] in [place] and 2 in [facility] starting in early January. 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 Had completed iv antibiotics per patient Recent renal failure and was started on HD Also started on antiseizure meds for seizure Symptomatic anemia Hb was 6.6 on admission S/p 1 PRBC Hb has been stable, 8.1 today Has leukopenia as well Anemia likely in setting of renal disease/chronic disease Denied melena or hematochezia. Continue PPI empirically for now Recent S/P TMA bilaterally at outside hospital L Foot osteomyelitis s/p treatment +MRSA and enterococcus faecialis PVD R 1st metatarsal stump osteomyelitis S/p Amputation Transmetatarsal 1st, right foot on 04/06/23 MRI of right foot reported osteomyelitis of first metatarsal stump Continue IV daptomycin for now based on ID recs from recent hospitalizations Will follow up culture from OR today Will follow up with ID once culture results ESRD on HD CKD that has since resulted in HD with tunneled cath in place On 02/14 cr was 1.51 He was started on HD during recent hospitalizations Cr is 9.11 on admisson He is on HD MWF Seizure d/o Per H&P report During recent hospitalizations patient underwent multiple EEGs. 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 Currently on Keppra 500 mg twice daily with additional Keppra dose after hemodialysis on Friday Uncontrolled T2DM Hba1c 8.9 during last hospital stay HbA1c is 6.5 on 04/03/23 Had hypoglycemia on 04/03/23 Lantus stopped. Continue sliding scale for now Better glycemic control Will continue to monitor and determine adjustment to diabetic regimen on dc if needed Hold pioglitazone DM educator consult HTN Continue amlodipine HLD Continue statins DVT prophylaxis: none in setting of anemia and possible surgery. Ambulate FULL CODE PCP: In YOCASTA anderson Will continue post op PT/OT I spent a total of 45 minutes coordinating, documenting and providing care for this patient excluding time spent in performance of separately billed services Admission and Anticipated Discharge Date Admission Date: April 02, 2023 Subjective Patient seen and examined after return from OR Currently reports only headache Reports no pain at surgical site Physical Exam Constitutional: + well hydrated; no acute distress Eyes: PERRL, conjunctivae normal, anicteric sclerae ENMT: external ear and nose normal, oropharynx normal Respiratory: normal respiratory effort, lungs clear to auscultation Cardiovascular: Rate/Rhythm: regular rate and regular rhythm S1 S2 Gastrointestinal (Abdomen): normal bowel sounds, soft, nontender, no hepatosplenomegaly Musculoskeletal: Right foot stump bandaged. No pedal edema Neurologic: PERRL, EOMI, accommodation nl, no face palsy, no dysarthria Psychiatric: A+Ox3, euthymic affect Results & Data Results & Data Vital Signs (Past 12 Hours) Vital Signs Temp Pulse Pulse Resp BP BP Pulse Ox 04/06/23 10:45 36.6 C 81 18 158/83 H 98 04/06/23 10:15 36.7 C 80 18 151/82 H 98 04/06/23 10:00 36.2 C L 80 18 136/74 95 04/06/23 09:50 80 16 141/70 H 94 04/06/23 09:40 36.0 C L 80 18 132/68 95 04/06/23 08:00 37.2 C 86 18 134/70 99 04/06/23 03:33 37.5 C 89 16 114/60 95 O2 Del Method 04/06/23 10:45 Room Air 04/06/23 10:15 Room Air 04/06/23 10:00 Room Air 04/06/23 09:50 Room Air 04/06/23 09:40 Room Air 04/06/23 08:00 Room Air 04/06/23 03:33 Room Air Laboratory Results Abnormal lab results 04/05/23 04/05/23 04/06/23 Range/Units 16:29 20:02 05:13 WBC (4.8-10.8) K/ul RBC (4.70-6.10) M/uL Hgb (14.0-18.0) g/dl Hct (42.0-52.0) % RDW Std Deviation (36.4-46.3) fL RDW Coeff of Erica (11.5-14.5) % MPV (9.4-12.4) fL Sodium 135 L (136-145) mmol/L BUN 47 H (6-23) mg/dl Creatinine 7.79 H* D (0.6-1.4) mg/dl BUN/Creatinine Ratio 6.0 L (10-20) Glucose 148 H (70-99(Fasting)) mg/dl POC Glucose 219 H 121 H (70-99) mg/dl 04/06/23 04/06/23 04/06/23 Range/Units 05:13 09:55 10:36 WBC 3.30 L (4.8-10.8) K/ul RBC 2.80 L (4.70-6.10) M/uL Hgb 8.1 L (14.0-18.0) g/dl Hct 23.7 L (42.0-52.0) % RDW Std Deviation 48.4 H (36.4-46.3) fL RDW Coeff of Erica 15.9 H (11.5-14.5) % MPV 8.5 L (9.4-12.4) fL Sodium (136-145) mmol/L BUN (6-23) mg/dl Creatinine (0.6-1.4) mg/dl BUN/Creatinine Ratio (10-20) Glucose (70-99(Fasting)) mg/dl POC Glucose 124 H 115 H (70-99) mg/dl
--- NOTE | 2023-04-06 17:24 | Operative Report ---
Post Operative Report Pre & Post Diagnosis Operation Date: 04/06/23 08:30 Pre-Op Diagnosis: Left foot osteomyelitis. Post-Op Diagnosis: Left foot osteomyelitis. I identified the patient and participated in the time-out.: Yes Procedure Operation Date: 04/06/23 08:30 Actual Procedures p Amputation Transmetatarsal 1st, right foot(Right) - Bonifacio Hess DPM, MS Surgeon Bonifacio Hess DPM, MS Safety Belt Installer None Estimated Blood Loss 0 Findings Consistent with Post-Op Diagnosis Non healing right foot ulcer Specimens Right first metatarsal - Micro Right first metatarsal - Pathology Description of Procedure History of present illness: Patient is a type II diabetic, 78 year old male who is seen for treatment of osteomyelitis of the Right first metatarsal. Patient notes a diabetic foot non healing ulcer. Patient has history of bilateral TMAs. All questions answered. Discussed procedure in detail and pos toperative recovery. All potential risks, benefits, complications, alternatives, rehab, potential for incomplete relief of symptoms, need for further surgery, DVT, PE, , persistent pain, swelling, scarring, weakness, neurovascular, wound complications, and potential for amputations were discussed with patient. Unwanted outcomes such as, but not limited to were reviewed including under correction, overcorrection, return of deformity, infection. All questions were answered. Patient has decided to proceed with procedure as indicated. Preoperative diagnosis: 1.) Diabetic non healing ulcer 2.) Osteomyelitis right first metatarsal Postoperative diagnosis: same Name of operation: 1.) Excision diabetic non healing ulcer 2.) Excision of right first metatarsal Surgeon Dr. Hess Safety Belt Installer: None Anesthesia: local with monitored anesthesia care Hemostasis: pneumatic ankle tourniquet Estimated blood loss: minimal Procedure in detail: Under mild sedation the patient was brought in the operating room placed on the operating table in supine position. A pneumatic ankle tourniquet was then placed about the patient's right ankle. Following IV sedation local anesthesia was obtained about the right utilizing 15 cc of a one-to-one mixture of 1% lidocaine plain and 0.5% Marcaine plain. The foot was then prepped scrubbed and draped in usual aseptic manner. An Esmarch bandage was utilized to exsanguinate the patient's right foot and the pneumatic ankle tourniquet was then inflated. Attention was then directed to a nonhealing diabetic ulcer over the dorsal right metatarsal. The diabetic foot ulcer probes to first metatarsal bone. The diabetic ulcer measures 0.5 x 0.5 x 0.5cm. An incision was created utilizing a sharp, sterile, #15 blade around the wound. The incision which was deepened through subcutaneous tissue using sharp blunt dissection. Care was taken to identify and retract all vital neurovascular structures. All bleeders were ligated and cauterized necessary. The dissection was carried down to the first metatarsal. The wound was excised en toto and placed on the back table. At this time the incision was elongated proximately to the tarsal metatarsal joint. A freer elevator was utilized to free the first metatarsal from adhesions. A deep, sterile, sharp #15 blade was used to free remaining tissue. The right first metatarsal was removed and placed on the back table and labeled right first metatarsal. A portion of the first metatarsal was sent to microbiology. The remaining right first Metatarsal was sent to pathology. 1 L of lactated ringer was utilized to irrigate the incision site. The skin was then primarily closed utilizing 3-0 nylon in horizontal suture mattress techniques as well as simple suture closure. Upon completion of the procedure the incision was dressed with Betadine soaked Adaptic followed by sterile compressive dressing consisting of 4 x 4's Nai Kerlix ABD the pneuma tic ankle tourniquet was inflated, and a prompt hyperemic response was noted. The Patient tolerated the procedure and anesthesia well. He was transferred to recovery room vital signs stable and vascular status intact. Following a period of postoperative monitoring the patient will be re-admitted to the floor resuming all pre-operative orders. I attest to the content of the Intraoperative Record and any orders documented therein. Any exceptions are noted below.
[2023-04-06] MEDS: LATANOPROST 0.005% OP SOLN 2.5 ML BTL OP SCH (21:04)
[2023-04-06] MEDS: ATORVASTATIN 40 MG TAB PO SCH (21:08)
[2023-04-07] MEDS: ACETAMINOPHEN 325 MG TAB PO PRN ×3 (02:34→18:17)
[2023-04-07] MEDS: levETIRAcetam 500 MG TAB PO SCH ×3 (06:09→18:06)
[2023-04-07 06:51] LABS: Calcium 8.5 mg/dl (8.6-10.3); Potassium 4.3 mmol/L (3.5-5.1)
[2023-04-07 06:58] LABS: Phosphorus 4.3 mg/dl (2.5-4.9)
[2023-04-07 06:59] LABS: BUN Creatinine Ratio 6.2 (10-20); Creatinine Clr Calc Pharmacy 6.8 ml/min; Est GFR (African American) 5.3 ml/min; Est GFR (Non-African American) 4.6 ml/min
[2023-04-07] MEDS ORDERED: SODIUM CHLORIDE 0.9% 1000ML 1,000 ML IV PRN ×2 (07:00)
[2023-04-07 07:05] LABS: Hematocrit (blood only) 22.5 % (42.0-52.0); Hemoglobin 7.8 g/dl (14.0-18.0); Mean Corpuscular Hemoglobin 29.3 pg (25.0-34.0); Mean Corpuscular Hgb Conc 34.7 g/dL (32.0-36.0); Mean Corpuscular Volume 84.6 fL (80.0-100.0); Mean Platelet Volume 8.3 fL (9.4-12.4); Platelet Count 176 K/uL (130-400); RDW Coefficient of Variation 15.9 % (11.5-14.5); RDW Standard Deviation 48.4 fL (36.4-46.3); Red Blood Count 2.66 M/uL (4.70-6.10); White Blood Count 3.21 K/ul (4.8-10.8)
[2023-04-07] MEDS: amLODIPine BESYLATE 5 MG TAB PO SCH (08:23)
[2023-04-07] MEDS: INSULIN ASPART PER UNIT CHARGE SC SCH ×5 (08:24→20:39)
[2023-04-07] MEDS: LIDOCAINE 5% 1 PATCH TD SCH (08:25)
[2023-04-07] MEDS: SEVELAMER HCL 800 MG TABLET PO SCH ×3 (08:26→16:53)
[2023-04-07] MEDS: ASPIRIN 81 MG ECTAB PO SCH (08:27)
[2023-04-07] MEDS: CYANOCOBALAMIN (B-12) 500 MCG TABLET PO SCH (08:28)
[2023-04-07] MEDS: DORZOLAMIDE HCL 2% OPH SOLN 10 ML BTL OP SCH ×3 (08:29→20:26)
[2023-04-07] MEDS: PANTOprazole 40 MG TAB PO SCH ×2 (08:29→20:27)
[2023-04-07] MEDS: CEROVITE ADV FORMULA TAB PO SCH ×2 (08:30→20:27)
--- NOTE | 2023-04-07 10:59 | Dialysis Progress Note ---
Date of Service April 07, 2023 Assessment & Plan Admission and Anticipated Discharge Date Admission Date: April 02, 2023 Subjective Assessment & Plan (1) ESRD--new Plan: routine HD today Continue 500 mg supplemental Keppra post HD if he dialyzes on non routine HD days, needs supplemental Keppra as above agree w/ dialysis diet, 1.5L FR provider network manager will have to confirm outpt Dialysis at [facility]. (2) Symptomatic anemia: Plan: s/p pRBC 7/5 which he seems to have tolerated well. hgb still low but under 8. Give epogen 98773 units today (3) Leukopenia: Plan: ? relation to abtx or to sepsis or to other -monitor Subjective Seen On dialysis. BP and Qb and CVC working fine. 2500 ml UF target. had Surgery yesterday. Review of Systems Review of Systems: All systems reviewed & are unremarkable except as noted in Subjective Physical Exam Constitutional: well developed and well nourished; no acute distress (lying flat on RA) Eyes: EOM intact bilaterally ENMT: Ears: no external ear abnormality Nose: no external nose abnormality Mouth: + dry oral mucous membranes B Neck: no nuchal rigidity Respiratory: normal respiratory effort Auscultation: + diminished lung sounds Cardiovascular: RRR, no murmur, no edema Gastrointestinal (Abdomen): Inspection/Auscultation: normal bowel sounds Percussion/Palpation: abdomen soft; abdomen nontender Musculoskeletal: Extremities: strength 5/5 throughout Skin: no rashes, warm and dry Neurologic: benjamin, fluent speech, no tremor Results & Data Vital Signs (Past 12 Hours) Vital Signs Temp Pulse Pulse Resp BP BP Pulse Ox 04/07/23 10:00 88 131/73 04/07/23 09:30 91 H 143/76 H 04/07/23 09:10 88 139/71 04/07/23 09:00 37.2 C 04/07/23 07:53 36.6 C 87 17 157/78 H 98 04/07/23 02:32 36.6 C 91 H 18 132/68 97 04/06/23 23:17 92 H O2 Del Method 04/07/23 10:00 04/07/23 09:30 04/07/23 09:10 04/07/23 09:00 04/07/23 07:53 Room Air 04/07/23 02:32 Room Air 04/06/23 23:17
[2023-04-07] MEDS ORDERED: EPOETIN ALFA 10,000 UNITS/ML VIAL IV ONE (11:01)
--- NOTE | 2023-04-07 11:50 | Hospitalist Progress Note ---
Date of Service April 07, 2023 Assessment & Plan (1) Symptomatic anemia: (2) ESRD (end stage renal disease): (3) Generalized weakness: (4) T2DM (type 2 diabetes mellitus): (5) HTN (hypertension): (6) HLD (hyperlipidemia): (7) PVD (peripheral vascular disease): (8) Pancytopenia: (9) Foot osteomyelitis, left: (10) Wound of right foot: Plan 78-year-old male who has a significant past medical history of HTN, HLD, PVD, uncontrolled T2DM, pancytopenia, glaucoma and 3 recent hospitalizations starting at the [facility] in [place] and 2 in [facility] starting in early January. 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 Had completed iv antibiotics per patient Recent renal failure and was started on HD Also started on antiseizure meds for seizure Symptomatic anemia Hb was 6.6 on admission S/p 1 PRBC Hb has been stable, 7.8 today Has leukopenia as well Anemia likely in setting of renal disease/chronic disease Denied melena or hematochezia. Continue PPI empirically for now Recent S/P TMA bilaterally at outside hospital L Foot osteomyelitis s/p treatment +MRSA and enterococcus faecialis PVD R 1st metatarsal stump osteomyelitis S/p Amputation Transmetatarsal 1st, right foot on 04/06/23 MRI of right foot reported osteomyelitis of first metatarsal stump POD #1 Continue IV daptomycin for now based on ID recs from recent hospitalizations Will follow up culture from OR Will get ID final recs once culture finalizes Partial weight bearing RLE per Financial Economist PT/OT eval ESRD on HD CKD that has since resulted in HD with tunneled cath in place On 02/14 cr was 1.51 He was started on HD during recent hospitalizations. Has not fully established at outpatient HD center prior to this admission per Nephro CM notified Cr is 9.11 on admission He is on HD MWF Seizure d/o Per H&P report During recent hospitalizations patient underwent multiple EEGs. 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 Currently on Keppra 500 mg twice daily with additional Keppra dose after hemodialysis on Friday Uncontrolled T2DM Hba1c 8.9 during last hospital stay HbA1c is 6.5 on 04/03/23 Had hypoglycemia on 04/03/23 Lantus stopped. Continue sliding scale for now Better glycemic control Will continue to monitor and determine adjustment to diabetic regimen on dc if needed Hold pioglitazone DM educator consult HTN Continue amlodipine HLD Continue statins DVT prophylaxis: none in setting of anemia and possible surgery. Ambulate FULL CODE PCP: YOCASTA Gates Counseled patient about plans and need for final cultures, plan for antibiotics, assessing activity needs with recent surgery and ensuring outpatient HD is well set up prior to dc I spent a total of 40 minutes coordinating, documenting and providing care for this patient excluding time spent in performance of separately billed services Admission and Anticipated Discharge Date Admission Date: April 02, 2023 Subjective Patient seen and examined Patient denies any new complaints Per RN notes, patient had fallen on his buttock in the bathroom overnight after removing his socks. Patient is currently getting HD He reports being frustrated at being in the hospital. Denied depression Denied any pain, nausea, vomiting, abd pain, diarrhea, dizziness, cough, SOB Physical Exam Constitutional: + well hydrated; no acute distress Eyes: PERRL, conjunctivae normal, anicteric sclerae ENMT: external ear and nose normal, oropharynx normal Respiratory: normal respiratory effort, lungs clear to auscultation Cardiovascular: Rate/Rhythm: regular rate and regular rhythm S1 S2 Gastrointestinal (Abdomen): normal bowel sounds, soft, nontender, no hepatosplenomegaly Musculoskeletal: Right foot bandaged No pedal edema Neurologic: PERRL, EOMI, accommodation nl, no face palsy, no dysarthria Psychiatric: AOx3, flat affect Results & Data Results & Data Vital Signs (Past 12 Hours) Vital Signs Temp Pulse Pulse Resp BP BP Pulse Ox 04/07/23 11:00 93 H 131/71 04/07/23 10:30 90 124/65 04/07/23 10:00 88 131/73 04/07/23 09:30 91 H 143/76 H 04/07/23 09:10 88 139/71 04/07/23 09:00 37.2 C 04/07/23 07:53 36.6 C 87 17 157/78 H 98 04/07/23 02:32 36.6 C 91 H 18 132/68 97 O2 Del Method 04/07/23 11:00 04/07/23 10:30 04/07/23 10:00 04/07/23 09:30 04/07/23 09:10 04/07/23 09:00 04/07/23 07:53 Room Air 04/07/23 02:32 Room Air Laboratory Results Abnormal lab results 04/06/23 04/06/23 04/07/23 Range/Units 16:49 20:36 05:34 WBC (4.8-10.8) K/ul RBC (4.70-6.10) M/uL Hgb (14.0-18.0) g/dl Hct (42.0-52.0) % RDW Std Deviation (36.4-46.3) fL RDW Coeff of Erica (11.5-14.5) % MPV (9.4-12.4) fL Sodium 134 L (136-145) mmol/L Carbon Dioxide 20 L (21-32) mmol/L Anion Gap 13 H (3-11) BUN 60 H (6-23) mg/dl Creatinine 9.74 H* D (0.6-1.4) mg/dl BUN/Creatinine Ratio 6.2 L (10-20) Glucose 131 H (70-99(Fasting)) mg/dl POC Glucose 188 H 188 H (70-99) mg/dl Calcium 8.5 L (8.6-10.3) mg/dl 04/07/23 04/07/23 04/07/23 Range/Units 06:43 07:50 12:59 WBC 3.21 L (4.8-10.8) K/ul RBC 2.66 L (4.70-6.10) M/uL Hgb 7.8 L (14.0-18.0) g/dl Hct 22.5 L (42.0-52.0) % RDW Std Deviation 48.4 H (36.4-46.3) fL RDW Coeff of Erica 15.9 H (11.5-14.5) % MPV 8.3 L (9.4-12.4) fL Sodium (136-145) mmol/L Carbon Dioxide (21-32) mmol/L Anion Gap (3-11) BUN (6-23) mg/dl Creatinine (0.6-1.4) mg/dl BUN/Creatinine Ratio (10-20) Glucose (70-99(Fasting)) mg/dl POC Glucose 120 H 133 H (70-99) mg/dl Calcium (8.6-10.3) mg/dl
[2023-04-07] MEDS ORDERED: DAPTOmycin 675 MG in SYRINGE 0 ML IV SCH (14:00)
[2023-04-07] MEDS ORDERED: oxyCODONE HCL IR 5 MG TAB (IMMEDIATE RELEASE) PO STA (19:46)
[2023-04-07] MEDS: LATANOPROST 0.005% OP SOLN 2.5 ML BTL OP SCH (20:26)
[2023-04-08] MEDS: ACETAMINOPHEN 325 MG TAB PO PRN (05:08)
[2023-04-08] MEDS: levETIRAcetam 500 MG TAB PO SCH ×2 (05:09→17:16)
[2023-04-08 05:54] LABS: Hemoglobin 8.8 g/dl (14.0-18.0); Mean Corpuscular Hemoglobin 29.2 pg (25.0-34.0); Mean Corpuscular Hgb Conc 33.8 g/dL (32.0-36.0); Mean Corpuscular Volume 86.4 fL (80.0-100.0); Mean Platelet Volume 8.6 fL (9.4-12.4); Platelet Count 205 K/uL (130-400); RDW Coefficient of Variation 16.2 % (11.5-14.5); RDW Standard Deviation 49.9 fL (36.4-46.3); Red Blood Count 3.01 M/uL (4.70-6.10); White Blood Count 4.36 K/ul (4.8-10.8)
[2023-04-08 06:08] LABS: BUN Creatinine Ratio 5.3 (10-20); Calcium 8.7 mg/dl (8.6-10.3); Creatinine Clr Calc Pharmacy 9.5 ml/min; Est GFR (African American) 8.1 ml/min
[2023-04-08] MEDS: SEVELAMER HCL 800 MG TABLET PO SCH ×3 (08:35→17:16)
[2023-04-08] MEDS: ASPIRIN 81 MG ECTAB PO SCH (08:35)
[2023-04-08] MEDS: CYANOCOBALAMIN (B-12) 500 MCG TABLET PO SCH (08:36)
[2023-04-08] MEDS: CEROVITE ADV FORMULA TAB PO SCH ×2 (08:36→20:43)
[2023-04-08] MEDS: amLODIPine BESYLATE 5 MG TAB PO SCH (08:36)
[2023-04-08] MEDS: PANTOprazole 40 MG TAB PO SCH ×2 (08:36→20:43)
[2023-04-08] MEDS: LIDOCAINE 5% 1 PATCH TD SCH (08:37)
[2023-04-08] MEDS: DORZOLAMIDE HCL 2% OPH SOLN 10 ML BTL OP SCH ×3 (08:37→20:44)
[2023-04-08] MEDS: INSULIN ASPART PER UNIT CHARGE SC SCH ×4 (08:54→20:45)
--- NOTE | 2023-04-08 08:59 | Nephrology Progress Note ---
Date of Service April 08, 2023 Assessment & Plan Admission and Anticipated Discharge Date Admission Date: April 02, 2023 Subjective Assessment & Plan (1) ESRD--new Plan: routine HD tomorrow. No issues with BP, or CVC Continue 500 mg supplemental Keppra post HD transportation operations manager will have to confirm outpt Dialysis at [facility]. (2) Symptomatic anemia: Plan: s/p pRBC 7/5 which he seems to have tolerated well. hgb still low Give epogen 02384 units with dialysis Pending Culture report to guide Abx therapy--ID to advice with choice of Abx--trying to manage with dialysis for ease. Subjective No issues with dialysis. BP and Qb and CVC working fine. met the UF target had Surgery yesterday. Review of Systems Review of Systems: All systems reviewed & are unremarkable except as noted in Subjective Physical Exam Constitutional: well developed and well nourished; no acute distress (lying flat on RA) Eyes: EOM intact bilaterally ENMT: Ears: no external ear abnormality Nose: no external nose abnormality Mouth: + dry oral mucous membranes Neck: no nuchal rigidity Respiratory: normal respiratory effort Auscultation: + diminished lung sounds Cardiovascular: RRR, no murmur, no edema Gastrointestinal (Abdomen): Inspection/Auscultation: normal bowel sounds Percussion/Palpation: abdomen soft; abdomen nontender Musculoskeletal: Extremities: strength 5/5 throughout Skin: no rashes, warm and dry Neurologic: benjamin, fluent speech, no tremor Results & Data Vital Signs (Past 12 Hours) Vital Signs Temp Pulse Pulse Resp BP Pulse Ox O2 Del Method 04/08/23 08:00 37.6 C H 88 19 134/73 93 Room Air 04/08/23 03:17 36.9 C 93 H 16 147/68 H 96 Room Air 04/08/23 01:21 93 H 04/07/23 23:07 37.2 C 88 16 135/71 97 Room Air
--- NOTE | 2023-04-08 12:30 | Hospitalist Progress Note ---
Date of Service April 08, 2023 Assessment & Plan (1) Symptomatic anemia: (2) ESRD (end stage renal disease): (3) Generalized weakness: (4) T2DM (type 2 diabetes mellitus): (5) HTN (hypertension): (6) HLD (hyperlipidemia): (7) PVD (peripheral vascular disease): (8) Pancytopenia: (9) Wound of right foot: (10) Foot osteomyelitis, right: Plan 78-year-old male who has a significant past medical history of HTN, HLD, PVD, uncontrolled T2DM, pancytopenia, glaucoma and 3 recent hospitalizations starting at the [facility] in [place] and 2 in [facility] starting in early January. Multiple recent hospital courses at [facility] and [place] detailed in H&P Recent B/L TMA secondary to osteomyelitis, culture grew MRSA and enterococcus. Had completed iv antibiotics per patient Recent renal failure and was started on HD Also started on antiseizure meds for seizure Symptomatic anemia Hb was 6.6 on admission S/p 1 PRBC Hb is 8.8 today Has leukopenia as well Anemia likely in setting of renal disease/chronic disease Recent S/P TMA bilaterally at outside hospital L Foot osteomyelitis s/p treatment +MRSA and enterococcus faecialis PVD R 1st metatarsal stump osteomyelitis S/p Amputation Transmetatarsal 1st, right foot on 04/06/23 MRI of right foot reported osteomyelitis of first metatarsal stump POD #2 Partial weight bearing RLE per Wax Blender PT/OT eval noted. Patient stated he will prefer to go home. He does not want to go to rehab/SNF Patient has not been adhering well to PWB per PT I counseled patient on need for this Surgical culture grew MRSA Discussed with ID Dr De. ID recommends discharge on IV daptomycin 500mg on Mon, Wed and 750mg on Fri with HD for 6 weeks Get weekly CBC, BMP, CPK Patient can follow up with ID outpatient CM notified. CM reported that the outpatient HD center set up for patient only opens on and CM tomorrow will need to reach out and confirm they can start antibiotics with HD on Fri prior to dc Attending tomorrow will follow up with this ESRD on HD CKD that has since resulted in HD with tunneled cath in place On 02/14 cr was 1.51 He was started on HD during recent hospitalizations. Has not fully established at outpatient HD center prior to this admission per Nephro CM notified Cr is 9.11 on admission He is on HD MWF Seizure d/o Per H&P report During recent hospitalizations patient underwent multiple EEGs. 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 Currently on Keppra 500 mg twice daily with additional Keppra dose after hemodialysis on Friday Uncontrolled T2DM Hba1c 8.9 during last hospital stay HbA1c is 6.5 on 04/03/23 Had hypoglycemia on 04/03/23 Lantus stopped. Continue sliding scale for now Better glycemic control Will continue to monitor and determine adjustment to diabetic regimen on dc if needed Hold pioglitazone DM educator consult HTN Continue amlodipine HLD Statin on hold while on daptomycin DVT prophylaxis: none in setting of anemia and possible surgery. Ambulate FULL CODE PCP: In YOCASTA anderson I spent a total of 45 minutes coordinating, documenting and providing care for this patient excluding time spent in performance of separately billed services Admission and Anticipated Discharge Date Admission Date: April 02, 2023 Subjective Patient seen and examined Patient denies any new complaints Denied any pain at surgical site Denied any pain, nausea, vomiting, abd pain, diarrhea, dizziness, cough, SOB Physical Exam Constitutional: + well hydrated; no acute distress Eyes: PERRL, conjunctivae normal, anicteric sclerae ENMT: external ear and nose normal, oropharynx normal Respiratory: normal respiratory effort, lungs clear to auscultation Cardiovascular: Rate/Rhythm: regular rate and regular rhythm S1 S2 Gastrointestinal (Abdomen): normal bowel sounds, soft, nontender, no hepatosplenomegaly Musculoskeletal: Right foot bandaged Neurologic: PERRL, EOMI, accommodation nl, no face palsy, no dysarthria Psychiatric: A+Ox3, euthymic affect Results & Data Results & Data Vital Signs (Past 12 Hours) Vital Signs Temp Pulse Pulse Resp BP Pulse Ox O2 Del Method 04/08/23 12:08 90 04/08/23 10:44 36.9 C 85 18 148/74 H 95 Room Air 04/08/23 08:00 37.6 C H 88 19 134/73 93 Room Air 04/08/23 03:17 36.9 C 93 H 16 147/68 H 96 Room Air 04/08/23 01:21 93 H Laboratory Results Abnormal lab results 04/07/23 04/07/23 04/08/23 Range/Units 17:01 20:34 05:20 WBC 4.36 L (4.8-10.8) K/ul RBC 3.01 L (4.70-6.10) M/uL Hgb 8.8 L (14.0-18.0) g/dl Hct 26.0 L (42.0-52.0) % RDW Std Deviation 49.9 H (36.4-46.3) fL RDW Coeff of Erica 16.2 H (11.5-14.5) % MPV 8.6 L (9.4-12.4) fL Sodium (136-145) mmol/L Carbon Dioxide (21-32) mmol/L Anion Gap (3-11) BUN (6-23) mg/dl Creatinine (0.6-1.4) mg/dl BUN/Creatinine Ratio (10-20) Glucose (70-99(Fasting)) mg/dl POC Glucose 164 H 170 H (70-99) mg/dl 04/08/23 04/08/23 04/08/23 Range/Units 05:20 07:58 12:01 WBC (4.8-10.8) K/ul RBC (4.70-6.10) M/uL Hgb (14.0-18.0) g/dl Hct (42.0-52.0) % RDW Std Deviation (36.4-46.3) fL RDW Coeff of Erica (11.5-14.5) % MPV (9.4-12.4) fL Sodium 135 L (136-145) mmol/L Carbon Dioxide 20 L (21-32) mmol/L Anion Gap 15 H (3-11) BUN 37 H D (6-23) mg/dl Creatinine 6.93 H* D (0.6-1.4) mg/dl BUN/Creatinine Ratio 5.3 L (10-20) Glucose 147 H (70-99(Fasting)) mg/dl POC Glucose 157 H 193 H (70-99) mg/dl
[2023-04-08] MEDS: LATANOPROST 0.005% OP SOLN 2.5 ML BTL OP SCH (20:45)
[2023-04-09] MEDS: levETIRAcetam 500 MG TAB PO SCH ×3 (06:12→17:36)
[2023-04-09 06:38] LABS: Hematocrit (blood only) 24.5 % (42.0-52.0); Hemoglobin 8.2 g/dl (14.0-18.0); Mean Corpuscular Hemoglobin 29.3 pg (25.0-34.0); Mean Corpuscular Hgb Conc 33.5 g/dL (32.0-36.0); Mean Corpuscular Volume 87.5 fL (80.0-100.0); Mean Platelet Volume 8.4 fL (9.4-12.4); Platelet Count 210 K/uL (130-400); RDW Standard Deviation 50.5 fL (36.4-46.3)
[2023-04-09 06:51] LABS: BUN Creatinine Ratio 5.2 (10-20); Calcium 8.6 mg/dl (8.6-10.3); Creatinine Clr Calc Pharmacy 6.6 ml/min; Est GFR (African American) 5.9 ml/min; Est GFR (Non-African American) 5.1 ml/min; Potassium 4.1 mmol/L (3.5-5.1)
[2023-04-09] MEDS ORDERED: EPOETIN ALFA 10,000 UNITS/ML VIAL IV ONE (07:00)
[2023-04-09] MEDS ORDERED: SODIUM CHLORIDE 0.9% 1000ML 1,000 ML IV PRN (07:00)
[2023-04-09] MEDS: PANTOprazole 40 MG TAB PO SCH ×2 (07:52→20:39)
[2023-04-09] MEDS: CYANOCOBALAMIN (B-12) 500 MCG TABLET PO SCH (07:52)
[2023-04-09] MEDS: DORZOLAMIDE HCL 2% OPH SOLN 10 ML BTL OP SCH ×3 (07:53→20:37)
[2023-04-09] MEDS: SEVELAMER HCL 800 MG TABLET PO SCH ×3 (07:53→17:35)
[2023-04-09] MEDS: ASPIRIN 81 MG ECTAB PO SCH (07:53)
[2023-04-09] MEDS: CEROVITE ADV FORMULA TAB PO SCH ×2 (07:53→20:39)
[2023-04-09] MEDS: LIDOCAINE 5% 1 PATCH TD SCH (07:54)
[2023-04-09] MEDS: INSULIN ASPART PER UNIT CHARGE SC SCH ×4 (07:56→21:20)
--- NOTE | 2023-04-09 08:34 | Orthopedic Progress Note ---
Date of Service April 08, 2023 Assessment & Plan (1) Foot osteomyelitis, right: Plan: Patient seen, evaluated, and treated. Patient is status post removal of non - viable, Osteomyelitic 1st Metatarsal bone. Clear margins and source control obtained. Reviewed cultures and sensitivities. (+)MRSA. Patient is weight bearing as tolerated to heel. Will continue to follow while in house. Thank you for allowing me to participate in the care of this Patient. Admission and Anticipated Discharge Date Admission Date: April 02, 2023 Subjective Patient seen at bedside resting comfortable. Dressing intact. Patient status post removal of non - viable bone. No complaints. Review of Systems Review of Systems: All systems reviewed & are unremarkable except as noted in Subjective Physical Exam Constitutional: cooperative and comfortable Respiratory: normal respiratory effort Cardiovascular: Rate/Rhythm: regular rate and regular rhythm Musculoskeletal: Extremities: + foot abnormality Skin: + wound (Sutures intact. Skin well co-apted. No signs of infection.) Neurologic: moves all extremities (loss of epicritic sensation) Psychiatric: Orientation: alert, oriented to person and cooperative Results & Data Vital Signs (Past 12 Hours) Vital Signs Temp Pulse Pulse Pulse Pulse Resp BP 04/09/23 07:31 37.2 C 87 16 04/09/23 08:09 88 129/68 04/09/23 08:03 36.6 C 91 H 04/09/23 07:12 90 04/09/23 03:28 36.9 C 86 18 04/08/23 23:28 36.7 C 84 20 BP BP Pulse Ox O2 Del Method 04/09/23 07:31 135/73 98 Room Air 04/09/23 08:09 04/09/23 08:03 04/09/23 07:12 04/09/23 03:28 136/76 97 Room Air 04/08/23 23:28 136/70 98 Room Air Diagnostic Findings [facility] [address] [place] [address] / Director: Steven Aguila M.D. Clinical Laboratory Report Name: YODIT NOVAK Acct: [id number] Status: ADM [place] : 1945 [facility] Date: 04/02/23 Age: 78 Sex: M Dis Date: Loc: [address]/Bed: [facility] Spec: [id number] Collected: 04/06/23-UNK Received: 04/06/23-[address]: Bonifacio Hess, DPM, MS Copy To: Rahul Grewal MD Source: Foot OV Order: Ordered: Aer/Natalia Cult/Sm Comments: Comment Culture set #1 Right 1st metatarsal. N Procedure Result Verified Site Gram Stain Final 04/06/23-1504 Gram Stain Result No WBCs Seen, No Organisms Seen Aero/Natalia Cult Preliminary 04/08/23-1239 Organism 1 Staph aureus MRSA Quantity Few Sens Sensitivities to Follow MRSA RX M.I.C. --- --------- Clindamycin R >4 Daptomycin S 1 Erythromycin R >4 Oxacillin R >2 Rifampin S <=1 Tetracycline R >8 Trimeth/Sulfa S <=0.5/9.5 Vancomycin S 2 S = SENSITIVE I = INTERMEDIATE R = RESISTANT
--- NOTE | 2023-04-09 09:51 | Dialysis Progress Note ---
Date of Service April 09, 2023 Assessment & Plan Admission and Anticipated Discharge Date Admission Date: April 02, 2023 Subjective Assessment & Plan (1) ESRD--new Plan: routine HD today Continue 500 mg supplemental Keppra post HD if he dialyzes on non routine HD days, needs supplemental Keppra as above agree w/ dialysis diet, 1.5L FR He is saying Discharge tomorrow. next HD in Friday. Growing MRSA--ID says Daptomicin for 6 weeks post Dialysis. (2) Symptomatic anemia: Plan: s/p pRBC 04/02 which he seems to have tolerated well. hgb still low but under 8. Give epogen 00122 units today Subjective Seen On dialysis. BP and Qb and CVC working fine.meeting UF target. had Surgery yesterday. Review of Systems Review of Systems: All systems reviewed & are unremarkable except as noted in Subjective Physical Exam Constitutional: well developed and well nourished; no acute distress (lying flat on RA) Eyes: EOM intact bilaterally ENMT: Ears: no external ear abnormality Nose: no external nose abnormality Mouth: + dry oral mucous membranes Neck: no nuchal rigidity Respiratory: normal respiratory effort Auscultation: + diminished lung sounds Cardiovascular: RRR, no murmur, no edema Gastrointestinal (Abdomen): Inspection/Auscultation: normal bowel sounds Percussion/Palpation: abdomen soft; abdomen nontender Musculoskeletal: Extremities: strength 5/5 throughout Skin: no rashes, warm and dry Neurologic: benjamin, fluent speech, no tremor Results & Data Vital Signs (Past 12 Hours) Vital Signs Temp Pulse Pulse Pulse Pulse Resp BP 04/09/23 09:30 90 126/62 04/09/23 09:00 92 H 107/61 04/09/23 08:30 88 126/67 04/09/23 07:31 37.2 C 87 16 04/09/23 08:09 88 129/68 04/09/23 08:03 36.6 C 91 H 04/09/23 07:12 90 04/09/23 03:28 36.9 C 86 18 04/08/23 23:28 36.7 C 84 20 BP BP Pulse Ox O2 Del Method 04/09/23 09:30 04/09/23 09:00 04/09/23 08:30 04/09/23 07:31 135/73 98 Room Air 04/09/23 08:09 04/09/23 08:03 04/09/23 07:12 04/09/23 03:28 136/76 97 Room Air 04/08/23 23:28 136/70 98 Room Air
[2023-04-09] MEDS: amLODIPine BESYLATE 5 MG TAB PO SCH (12:28)
[2023-04-09] MEDS ORDERED: DAPTOmycin 500 MG in SYRINGE 0 ML IV SCH (14:00)
--- NOTE | 2023-04-09 15:13 | Hospitalist Progress Note ---
Date of Service April 09, 2023 Assessment & Plan (1) Symptomatic anemia: (2) ESRD (end stage renal disease): (3) Generalized weakness: (4) T2DM (type 2 diabetes mellitus): (5) HTN (hypertension): (6) HLD (hyperlipidemia): (7) PVD (peripheral vascular disease): (8) Pancytopenia: (9) Wound of right foot: (10) Foot osteomyelitis, right: Plan 78-year-old male who has a significant past medical history of HTN, HLD, PVD, uncontrolled T2DM, pancytopenia, glaucoma and 3 recent hospitalizations starting at the [facility] in [place] and 2 in [facility] starting in early January. He has multiple recent hospital courses at [facility] and [place] detailed in H&P. He had recent B/L TMA secondary to osteomyelitis, culture grew MRSA and enterococcus. Had completed iv antibiotics per patient. Recent renal failure and was started on HD. Also started on antiseizure meds for seizure. He is being managed for the following: Symptomatic anemia Hb was 6.6 on admission S/p 1 PRBC; Hb has been stable. Anemia likely in setting of renal disease/chronic disease Recent S/P TMA bilaterally at outside hospital L Foot osteomyelitis s/p treatment +MRSA and enterococcus faecialis PVD R 1st metatarsal stump osteomyelitis S/p Amputation Transmetatarsal 1st, right foot on 04/06/23 MRI of right foot reported osteomyelitis of first metatarsal stump; s/p Sx (above) by Dr. Hess. Podiatry on board, WBAT. PT/OT eval noted. Patient stated he will prefer to go home, was counselled on need for rehab. He does not want to go to rehab/SNF. 04/06 operative culture grew MRSA. ID evaluated. Recommendation is IV daptomycin 500 mg on Friday and Friday, 750 mg on Friday with hemodialysis. Total duration 6 weeks. Prescription has been provided to CM per prior attending. Weekly labs CBC/BMP/CPK while on antibiotic. Follow-up with ID upon discharge. CM working on setting up dialysis/outpatient antibiotic for discharge likely tomorrow. ESRD on HD CKD that has since resulted in HD with tunneled cath in place On 02/14 cr was 1.51 He was started on HD during recent hospitalizations. Has not fully established at outpatient HD center prior to this admission per Nephro CM notified Cr is 9.11 on admission He is on HD MWF, Nephro on board. Seizure d/o Per H&P report During recent hospitalizations patient underwent multiple EEGs. 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 Currently on Keppra 500 mg twice daily with additional Keppra dose after hemodialysis on Friday Uncontrolled T2DM Hba1c 8.9 during last hospital stay HbA1c is 6.5 on 04/03/23 Had hypoglycemia on 04/03/23 Lantus stopped. Continue sliding scale for now Better glycemic control Will continue to monitor and determine adjustment to diabetic regimen on dc if needed Hold pioglitazone DM educator consult HTN Continue amlodipine HLD Statin on hold while on daptomycin, monitor CPK. DVT prophylaxis: none in setting of anemia and possible surgery. Ambulate FULL CODE PCP: YOCASTA Gates Admission and Anticipated Discharge Date Admission Date: April 02, 2023 Subjective Patient seen and examined at bedside as a follow-up of right first metatarsal stump osteomyelitis. Patient is status post amputation transmetatarsal first, right foot on 04/06/[address] Hess. Patient was lying in bed, on room air, NAD, reports no new acute event overnight, reports 1 loose bowel in the morning. No further loose bowel movement today. Patient will be on long-term IV antibiotic, will add probiotic. Patient reports eating okay, denies any pain or fever. Physical Exam Physical Exam: GENERAL: Alert and oriented x3. NAD, on RA. HEENT: No pallor, no icterus. Pupils equal, round and reactive to light. Oral mucosa moist. NECK: No JVD, no neck masses. HEART: S1 and S2 heard. Regular rate and rhythm. No murmur, no gallop. RESPIRATORY SYSTEM: Normal AP diameter. No accessory muscle use. No wheezing, no crackles. ABDOMEN: Soft, bowel sounds present, nontender, no distention. CENTRAL NERVOUS SYSTEM: No facial droop. Speech is clear. Obeys simple commands. Moves extremities. EXTREMITIES: No edema, no erythema seen. Rt foot bandaged c/d/i. s/p b/l transmetatarsal amputation noted. Results & Data Results & Data Vital Signs (Past 12 Hours) Vital Signs Temp Pulse Pulse Pulse Pulse Resp BP 04/09/23 12:23 36.4 C L 95 H 16 04/09/23 11:43 36.7 C 91 H 04/09/23 11:30 84 121/61 04/09/23 11:00 92 H 96/57 L 04/09/23 10:30 90 105/90 04/09/23 10:00 90 109/63 04/09/23 09:30 90 126/62 04/09/23 09:00 92 H 107/61 04/09/23 08:30 88 126/67 04/09/23 07:31 37.2 C 87 16 04/09/23 08:09 88 129/68 04/09/23 08:03 36.6 C 91 H 04/09/23 07:12 90 04/09/23 03:28 36.9 C 86 18 BP BP Pulse Ox O2 Del Method 04/09/23 12:23 176/76 H 98 Room Air 04/09/23 11:43 124/58 L 04/09/23 11:30 04/09/23 11:00 04/09/23 10:30 04/09/23 10:00 04/09/23 09:30 04/09/23 09:00 04/09/23 08:30 04/09/23 07:31 135/73 98 Room Air 04/09/23 08:09 04/09/23 08:03 04/09/23 07:12 04/09/23 03:28 136/76 97 Room Air
[2023-04-09] MEDS: LATANOPROST 0.005% OP SOLN 2.5 ML BTL OP SCH (20:38)
[2023-04-10] MEDS: ACETAMINOPHEN 325 MG TAB PO PRN (03:14)
[2023-04-10] MEDS: levETIRAcetam 500 MG TAB PO SCH (06:02)
[2023-04-10] MEDS: SEVELAMER HCL 800 MG TABLET PO SCH ×2 (08:44→13:00)
[2023-04-10] MEDS: amLODIPine BESYLATE 5 MG TAB PO SCH (08:45)
[2023-04-10] MEDS: ASPIRIN 81 MG ECTAB PO SCH (08:45)
[2023-04-10] MEDS: CYANOCOBALAMIN (B-12) 500 MCG TABLET PO SCH (08:46)
[2023-04-10] MEDS: LIDOCAINE 5% 1 PATCH TD SCH (08:47)
[2023-04-10] MEDS: DORZOLAMIDE HCL 2% OPH SOLN 10 ML BTL OP SCH (08:47)
[2023-04-10] MEDS: PANTOprazole 40 MG TAB PO SCH (08:49)
[2023-04-10] MEDS: CEROVITE ADV FORMULA TAB PO SCH (08:49)
[2023-04-10] MEDS: INSULIN ASPART PER UNIT CHARGE SC SCH ×2 (09:09→12:54)
--- NOTE | 2023-04-10 13:38 | Discharge Summary ---
Date of Service April 10, 2023 Admission HPI Per Admitting Provider This is a 78-year-old male who has a significant past medical history of HTN, HLD, PVD, uncontrolled T2DM, pancytopenia, glaucoma and 3 recent hospitalizations starting at the [facility] in [place] and [facility]. Patient is a very poor historian and girlfriend at bedside is poor historian as well. Still need to obtain hospital records from [facility]. Records reviewed from [facility] which are not entirely clear of whole hospital picture. Patient initially underwent localized debridement to his bilateral feet at local [facility] on 01/29/2023. During the hospital stay patient was placed on IV vancomycin and cefepime via PICC line. Deep wound culture of his foot on 02/11 revealed MRSA and Enterococcus facialis both sensitive to vancomycin. At some time patient underwent bilateral TMA secondary to the osteomyelitis. [facility] to 03/06/2023. On admission on 02/24 he was found to have a BUN of 46 and a creatinine of 5.0. At that time he was also found to have leukopenia and hemoglobin of 7.0. Nephrology was consulted and patient was started on hemodialysis. 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 Due to concern for further infection patient underwent MRI of right foot which was nondiagnostic and MRI of left foot which showed acute osteomyelitis. He was started on daptomycin and Zosyn and infectious disease was following. He underwent I&D of right foot on 03/02 and is to follow-up with podiatry upon discharge. His hospital course was further complicated with acute encephalopathy. He was seen and evaluated by neurology and EEG was complete. It was felt patient was suffering from cefepime induced neurotoxicity given EEG findings and improvement with time off cefepime. He was initially placed on Keppra due to concern for possible seizure disorder but this was discontinued. He underwent tunneled dialysis catheter placement on 03/04. He was then discharged to subacute rehab to continue daptomycin and Zosyn till 03/28 with weekly labs. He then represented back to the hospital on 03/10 and was admitted through 03/15/2023 secondary to altered mental status. CT head, though motion co mpromised, showed no acute findings. Lab work revealed BUN 36, creatinine 10.6 and hemoglobin of 6.5. It was determined that patient had still been on cefepime at SNF despite being discontinued. Again it was thought that it was neurotoxicity secondary to cefepime although mental status did not significantly improve after discontinuation. An EEG was performed which showed nonconvulsive status epilepticus and so he was loaded with Keppra and moved to neuro PCU for continuous EEG monitoring. EEG showed further seizures despite Keppra loading and was given additional Keppra and Ativan. Neurology recommended giving extra 500 mg dose of Keppra after hemodialysis. In regards to his left foot osteomyelitis ID recommended daptomycin. Blood cultures were negative to date. In regards to his pancytopenia he did require 2 units of PRBCs and hemoglobin was stable at 9.1 on discharge. He was scheduled Friday for dialysis and is to continue to have extra 5 mg dose of Keppra after each dialysis. His A1c during hospital stay was 8.9 which revealed overall poor control. He was then discharged back to SNF in medically stable condition. He was recently discharged from rehab. He had been doing well and girlfriend agreed at bedside. He woke up this morning and felt weak and was having a hard time walking. His last HD treatment was on Friday and since then has been more dizzy. He denies fever, sweats, chest pain, sob, lightheaded, n/v/d, epistaxis, hemoptysis, melena, hematochezia. He feels off balance and is having a hard time walking. Again patient is a very poor historian therefore ROS limited. Admission Exam Per Admitting Provider Vitals signs as noted above General Appearance:Moderately built and nourished, no apparent distress Head: normocephalic, Atraumatic Eyes: normal inspection, EOMI Neck: supple, Trachea midline Respiratory/Chest: Normal breath sounds, CTA, R HD Catheter, No accessory muscle use Cardiovascular: S1, S2, No murmur Abdomen/GI:Soft, Non tender, Bowel sounds present Extremities/Musculoskeletal:normal inspection, Trace pedal edema, B/L partial foot amputations, +wounds Neurologic/Psych:AAOX3, grossly no focal neurological deficits, slow to respond Skin: normal color, warm Principal Diagnosis R 1st metatarsal stump osteomyelitis S/p Amputation Transmetatarsal 1st, right foot on 04/06/23 ESRD on HD Discharge Exam GENERAL: Alert and oriented x3. NAD, on RA. HEENT: No pallor, no icterus. Pupils equal, round and reactive to light. Oral mucosa moist. NECK: No JVD, no neck masses. HEART: S1 and S2 heard. Regular rate and rhythm. No murmur, no gallop. RESPIRATORY SYSTEM: Normal AP diameter. No accessory muscle use. No wheezing, no crackles. ABDOMEN: Soft, bowel sounds present, nontender, no distention. CENTRAL NERVOUS SYSTEM: No facial droop. Speech is clear. Obeys simple commands. Moves extremities. EXTREMITIES: No edema, no erythema seen. Rt foot bandaged c/d/i. s/p b/l transmetatarsal amputation noted. Discharge Data Allergies Allergy/AdvReac Type Severity Reaction Status Date / Time cefepime Allergy Unknown SEE COMMENT Verified 04/02/23 15:54 simvastatin AdvReac Intermediate Gastrointestinal Verified 04/02/23 15:52 Upset Consultations 04/02/23 16:56 ED Decision to Admit Stat 04/02/23 18:11 Consult Nephrology Routine 04/04/23 07:35 Consult Infectious Diseases Routine 04/04/23 12:16 Consult Podiatry Routine Procedures Performed Operation Date: 04/06/23 08:30 Actual Procedures p Amputation Transmetatarsal 1st, right foot(Right) - Bonifacio Hess DPM, [place] Ordered Studies 04/02/23 14:15 CT head/brain wo con Stat 04/03/23 13:48 MR ankle RT wo con Urgent Hospital Course (1) Symptomatic anemia: (2) ESRD (end stage renal disease): (3) Generalized weakness: (4) T2DM (type 2 diabetes mellitus): (5) HTN (hypertension): (6) HLD (hyperlipidemia): (7) PVD (peripheral vascular disease): (8) Pancytopenia: (9) Wound of right foot: (10) Foot osteomyelitis, right: Plan 78-year-old male who has a significant past medical history of HTN, HLD, PVD, uncontrolled T2DM, pancytopenia, glaucoma and 3 recent hospitalizations starting at the [facility] in [place] and [facility]. He has multiple recent [facility] [place] detailed in H&P. He had recent B/L TMA secondary to osteomyelitis, culture grew MRSA and enterococcus. Had completed iv antibiotics per patient. Recent renal failure and was started on HD. Also started on antiseizure meds for seizure. He was managed for the following: Symptomatic anemia Hb was 6.6 on admission S/p 1 PRBC; Hb has been stable. Anemia likely in setting of renal disease/chronic disease Recent S/P TMA bilaterally at outside hospital L Foot osteomyelitis s/p treatment +MRSA and enterococcus faecialis PVD R 1st metatarsal stump osteomyelitis S/p Amputation Transmetatarsal 1st, right foot on 04/06/23 MRI of right foot reported osteomyelitis of first metatarsal stump; s/p Sx ( above) by Dr. Hess. Podiatry on board, WBAT. PT/OT eval noted. Patient stated he will prefer to go home, was counselled on need for rehab. He does not want to go to rehab/SNF. 04/06 operative culture grew MRSA. ID evaluated. Recommendation is IV daptomycin 500 mg on Friday and Friday, 750 mg on Friday with hemodialysis. Total duration 6 weeks. Prescription has been provided to CM per prior attending. Weekly labs CBC/BMP/CPK while on antibiotic. Follow-up with ID upon discharge. Follow-up with podiatry on discharge. Maintain compliance with your hemodialysis and outpatient antibiotic. ESRD on HD CKD that has since resulted in HD with tunneled cath in place On 02/14 cr was 1.51 He was started on HD during recent hospitalizations. Has not fully established at outpatient HD center prior to this admission per Nephro CM notified Cr is 9.11 on admission He is on HD MWF, Nephro on board. Seizure d/o Per H&P report During recent hospitalizations patient underwent multiple EEGs. 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 Currently on Keppra 500 mg twice daily with additional Keppra dose after hemodialysis on Friday Uncontrolled T2DM Hba1c 8.9 during last hospital stay HbA1c is 6.5 on 04/03/23 Had hypoglycemia on 04/03/23 Lantus stopped. Continue sliding scale for now Better glycemic control, has been averaging around 8 to 10 units daily on s liding scale. We will decrease his home Lantus to 5 unit in the morning from his prior 10 units, continue with home oral meds. Follow-up with the diabetic clinic closely, preferably in 1 week upon discharge. HTN Continue amlodipine HLD Statin on hold while on daptomycin, monitor CPK. DVT prophylaxis: none in setting of anemia and possible surgery. Ambulate FULL CODE PCP: In YOCASTA anderson Patient being discharged home with home health with following instruction at the point of discharge: Follow-up with your primary care physician within a week time and likely you will need labs CBC/CMP/magnesium/phosphorus. Follow-up with infectious disease in 4 to 6 weeks upon discharge. Follow-up with the podiatry in 2 to 4 weeks upon discharge. Follow-up with your diabetic clinic in the week upon discharge. Continue with physical therapy at home. You will be on IV antibiotic for several weeks [total duration 6 weeks]. Your atorvastatin will be on hold as long as you are on IV antibiotic daptomycin. You will need weekly CPK/CMP/CBC. Communicate with your PCP office after your antibiotic is done to resume your atorvastatin. You will need CPK level prior to resuming your atorvastatin. Maintain compliance with your dialysis and outpatient antibiotic treatment. For your pain, you can use [id number] Tylenol for mild to moderate pain and can use [id number]-[id number] lidocaine patch 4% for moderate pain. Take your medications as prescribed. Please make sure that you are able to get your medications today by calling your pharmacy before you leave the hospital so that your treatment continuity is not broken. Home Health Attestation I certify that this patient is under my care and that I, or a physicians university administrative assistant working with me, had a face to-face encounter that meets the home health [id number] encounter requirements with this patient. The encounter with the patient was in whole, or in part, for the following medical condition, which is the primary reason for home health care (list medical condition): osteomyelitis I certify that, based on my findings, the following services are medically necessary home health services: My clinical findings support the need for the above services because: OT Assess ADL Status and Restore Function w ADLs PT Assessment for Endurance / Balance / Strength PT Eval for Safety and Mobility PT Eval for Safety, Gait Training, Assistive Devices PT Gait and Balance Training, Strengthening and Safety Further, I certify that my clinical findings support that this patient is homebound (i.e. absences from home require considerable and taxing effort and are for medical reasons or synagogue services or infrequently or of short duration when for other reasons) because: Supportive Aid - Walker Supportive Aid - Wheelchair Transportation Assistance/Unable to Leave Home Unassisted Certification for Home Health Services: Based on the above findings, I certify that this patient is confined to the home and needs intermittent assisted care, physical therapy and/or speech therapy or continues to need occupational therapy. The patient is under my care, and I have initiated the establishment of the plan of care. This patient will be followed by a physician who will periodically review the plan of care. Total Time Total Time Spent Total Time Spent (In Minutes): 50 Discharge Plan Discharge Items Patient Disposition: Home - Home Health Services Reason For Visit: SYMPTOMATIC ANEMIA Discharge Diagnosis: R 1st metatarsal stump osteomyelitis S/p Amputation Transmetatarsal 1st, right foot on 04/06/23 ESRD on HD Activity: As commented below Activity Comment: Weightbearing as tolerated Non-emergency contact: Primary Care Provider Call non-emergency contact if: you have any medication questions, your symptoms worsen, your pain is worsening and your temperature is above 101 Follow-up/Referrals: Blanca Nicole PA-C [Primary Care Provider] - Diet: Carb Consistent or DM2 and Heart Healthy Addtl Attending Provider Instructions: Follow-up with your primary care physician within a week time and likely you will need labs CBC/CMP/magnesium/phosphorus. Follow-up with infectious disease in 4 to 6 weeks upon discharge. Follow-up with the podiatry in 2 to 4 weeks upon discharge. Follow-up with your diabetic clinic in the week upon discharge. Continue with physical therapy at home. You will be on IV antibiotic for several weeks [total duration 6 weeks]. Your atorvastatin will be on hold as long as you are on IV antibiotic daptomycin. You will need weekly CPK/CMP/CBC. Communicate with your PCP office after your antibiotic is done to resume your atorvastatin. You will need CPK level prior to resuming your atorvastatin. Maintain compliance with your dialysis and outpatient antibiotic treatment. For your pain, you can use [id number] Tylenol for mild to moderate pain and can use [id number] lidocaine patch 4% for moderate pain. Take your medications as prescribed. Please make sure that you are able to get your medications today by calling your pharmacy before you leave the hospital so that your treatment continuity is not broken. Addtl Recruiting Associate Provider Instructions: Please arrive to Dialysis at 9:30am Wednesday 04/11. After that, you will resume your regular dialysis times at 1:00pm Pending Studies at Discharge: No Stand-Alone Forms: My [facility], Smoking Cessation Medications and DC Order Prescriptions: New pantoprazole 40 mg Tablet,Delayed Release (Dr/Ec) 40 mg PO DAILY Qty: 30 0RF daptomycin [Cubicin RF] 500 mg recon soln 500 mg IV WE Qty: 12 0RF Rx Instructions: administer over 30 mins after hemodialysis. daptomycin [Cubicin RF] 500 mg recon soln 750 mg IV .friday Qty: 6 0RF Rx Instructions: administer over 30 mins after hemodialysis Continued hydrocodone-acetaminophen 5-325 mg Tablet 1 tab PO BID PRN (Reason: Pain) cyanocobalamin (vitamin B-12) [Vitamin B-12] 1,000 mcg Tablet 1,000 mcg PO DAILY amlodipine 5 mg Tablet 5 mg PO DAILY aspirin 81 mg Tablet,Delayed Release (Dr/Ec) 81 mg PO DAILY sildenafil 100 mg Tablet 100 mg PO DAILY PRN (Reason: NEEDED) pioglitazone 30 mg Tablet 30 mg PO DAILY povidone-iodine 10 % Solution 1 applic TOPICAL DAILY PRN (Reason: BLISTER ON FOOT) diclofenac sodium [Voltaren] 1 % Gel 2 g TOPICAL TID PRN (Reason: Pain) PreserVision AREDS 2,148 mcg-113 mg-45 mg-17.4mg Tablet 1 tab PO BID Rx Instructions: administer with AM and PM meals latanoprost 0.005 % Drops 1 drp OPHTHALMIC (EYE) PM levetiracetam [Keppra] 500 mg Tablet 500 mg PO MOWEFR Rx Instructions: Pt is on keppra 500mg BID; also takes extra dose every Mo, We Friday AFTER HD levetiracetam [Keppra] 500 mg Tablet 500 mg PO Q12H sevelamer HCl 800 mg Tablet 2,400 mg PO TID Rx Instructions: must administer with a meal/food dorzolamide 2 % Drops 1 drp OPHTHALMIC (EYE) TID Changed insulin glargine 100 unit/mL Solution 5 unit SUBCUT QAM Qty: 10 0RF Held atorvastatin 40 mg Tablet 40 mg PO HS Hold Instructions: Resume on 05/22/23. On hold until your are on Daptomycin. You will need CPK level prior to resuming the statin. Coordinate with PCP office once you are done with daptomycin. Discontinued garlic [garlic oil] 1,000 mg Capsule 1,000 mg PO DAILY apple cider vinegar 500 mg Tablet 1,000 mg PO DAILY Discharge Orders: Discharge Order (Routine); Ordered 04/10/23 Ordered By: Ashleigh Linton Admission Data Admit Date/Time: 04/02/23 16:18 Attending Provider: Ashleigh Linton Admit Provider: Rahul Grewal Primary Care Provider: Blanca Nicole Other Providers: Rahul Grewal ; Trudy Flanagan ; Luis Delatorre ; Adore Bal ; Hemant De I. ; Salomon Baker II ; Sheeba Mosley ; Marshall Macario ; Humberto Nunez ; Lionel Stephenson ; Bonifacio Hess ; [facility] Other Interventions: Discharge Summary Assessment (RN) Last Done: 04/10/23 13:23
--- NOTE | 2023-04-11 08:42 | Coding Query ---
PATHOLOGY To promote full compliance with coding requirements relating to patient care, physician participation is requested in all cases of medical billing coder uncertainty. Please assist us with the question(s) below: Please review the Pathology report and please document any relevant diagnosis(es) below: Diagnosis(es): Acute OM x right foot first metatarsal Thank you Kimberley ALEJO
[2023-04-11] MEDS ORDERED: DAPTOmycin 750 MG in SYRINGE 0 ML IV SCH (14:00)
== END 2023-04-10 14:09 | disposition home health service (06) | DRG 617 ==
LOC: ED 11:50 → 4W 16:18 → SUATTDRO 16:18 → 4W 17:43

== ENCOUNTER 2025-09-22 21:05 | Inpatient (IN) ==
--- NOTE | 2025-09-22 21:12 | Emergency Department Note ---
Impression & Plan Sepsis, HEMANT (acute kidney injury), Cholelithiasis, Hypomagnesemia ED Provider Note NAME: YODIT NOVAK AGE: 80 SEX: M : 1945 ARRIVES VIA: Ambulance INFORMANT: Patient, ED PROVIDER(S): Maverick Martniez MD CHIEF COMPLAINT: Weakness, fatigue, chills MEDICAL DECISION MAKING: Patient presents with the above. The patient was noted to be hypotensive and tachycardic so sepsis protocols initiated and the patient did receive empiric IV fluids as well as empiric IV Zosyn. Chest x-ray and COVID flu RSV testing obtained. The patient's blood work does show a white count of 2.7 hemoglobin 11 with a platelet count of 116. Kidney function with a creatinine 2.2 which is worse than his baseline. Lactate of 2.7 mag of 1.6 with a bilirubin of 1.9 and AST and ALT of 559 and 431. A lipase was added along with CT abdomen pelvis. He had reported some epigastric pain prior to arrival but does not complain of epigastric right upper quadrant pain on my repeat exam. Pro-Jam 48. Patient was added vancomycin and additional IV fluids. The patient did feel warm although his oral temp was normal. The patient was ordered IV Ofirmev 1 g. Patient was having clinical improvement in his heart rate initially staying in the 800s to 1 teens and has improved to the low 90s. Clinically the patient appears improved blood pressure 98/53. Patient was ordered [address] abdomen pelvis showed cholelithiasis with subtle inflammatory changes about cystic duct which may represent sequelae of biliary colic. Hepatosplenomegaly noted. Given these findings I did speak with the on-call capability lead Dr. Braga to read an MRCP. No evidence of intra or extrahepatic biliary ductal dilatation. I did message with the on-call general surgeon Dr. Mae who agreed with current plan of care antibiotics and medical admission. I did speak with the on-call hospice doctor Shalonda the patient was admitted to the medicine service. Patient will was ordered 30 cc/kg bolus. Discussion w/ other healthcare providers: Dr. Braga gastroenterology Dr. Mae general surgery Dr. Liz inpatient medicine service Prior /Outside records reviewed: None Differential diagnosis: Dehydration, UTI, pneumonia, metabolic derangment, electrolyte abnormalities, hypovolemia, anemia, cellulitis among others were considered. Diagnostics, as interpreted by me: ECG: Sinus tachycardia, rate of 109, normal NH, wide QRS right bundle branch block pattern. No ST elevations. Cardiac monitoring: An order was placed for continuous cardiac monitoring. The monitor shows a rate of 116 with tachycardic and regular rhythm. Patient was placed on pulse oximetry Medical decision rules: None Imaging studies: I informally interpreted the patient's chest x-ray does not show evidence of obvious consolidative pneumonia with formal report to follow. HPI: Patient presents due to concerns for weakness and fatigue. He states that this morning he did have some chills and that he tried to get up to the bathroom but reports that he was so weak that he was not able to stand or walk. He was formally on dialysis but states that he has not needed this for some time. He denies any abdominal pain no nausea or vomiting and no diarrhea. No known sick contacts or any recent travel. States that his appetite has been a bit decreased today. He denies any fevers but did feel chilled this morning. PAST MEDICAL HISTORY: See Below PAST SURGICAL HISTORY: See Below SOCIAL HISTORY: See Below HOME MEDICATIONS: See Below ALLERGIES: See Below VITALS: See Below PHYSICAL EXAMINATION: GENERAL: NAD, non-toxic. EYE EXAM: Normal conjunctiva. PERRL, no anisocoria and EOM's grossly intact w/o pain. OROPHARYNX: Moist mucus membranes, grossly normal dentition. NECK: Trachea midline, no stridor. LUNGS: Clear to auscultation. Normal chest wall mechanics. HEART: Tachycardic and regular, no MRG. ABDOMEN: Abdomen soft, non-tender, no masses, no rebound or guarding. BACK: No CVA TTP. SKIN: No rashes and no bruising. UPPER EXTREMITIES: Upper extremities are grossly normal. LOWER EXTREMITIES: Grossly normal, no edema. Bilateral TMA's of both feet. No open wounds. NEURO EXAM: Awake and alert, follows commands, no obvious facial asymmetry, normal speech, moves all 4 extremities. Past Med/Surg History Problem List (Updated 09/23/25 @ 00:32 by Maverick Martinez MD) Hypomagnesemia (Acute) Cholelithiasis (Acute) HEMANT (acute kidney injury) (Acute) Sepsis (Acute) Chronic low back pain Postlaminectomy syndrome of lumbosacral region Lumbar degenerative disc disease Lumbar facet joint syndrome Leg length discrepancy Chronic kidney disease Medical History History of renal dialysis Foot osteomyelitis, right Foot osteomyelitis, left Pancytopenia PVD (peripheral vascular disease) HLD (hyperlipidemia) HTN (hypertension) T2DM (type 2 diabetes mellitus) Glaucoma Surgical History History of lumbar fusion Early 1999. L4-S1 laminectomy and fusion. 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 Family History Father Cancer Colorectal cancer Mother Old age Social History Smoking Status: Former smoker Second Hand Exposure: No; Do You Dip or Chew Tobacco: No; Hx Alcohol Use: No Hx Substance Use: No Preferred Language: Citizen Of [place] Communication Ability: Effective Visual Impairment: No Limitations Hearing Ability: Use of Hearing Aid [employer] Required: No Beliefs That Will Affect Care: None Current Living Situation: Other current occupational status: retired How many Children do You have: 2 Feels Safe at Home: Yes caffeine: Yes Dental Care, Regularly: Yes Do you think of yourself as: straight/heterosexual Gender Identity: Male Assistive Devices: Cane, Hearing Aid - Bilateral and Walker Allergies Allergies Allergy/AdvReac Type Severity Reaction Status Date / Time cefepime Allergy Unknown SEE COMMENT Verified 08/02/25 10:47 simvastatin AdvReac Intermediate Gastrointestinal Verified 08/02/25 10:47 Upset Home Meds Home Medications Medication Instructions Recorded Confirmed amlodipine 5 mg tablet 5 mg PO DAILY 04/02/23 08/02/25 atorvastatin 40 mg tablet 40 mg PO HS 04/02/23 08/02/25 diclofenac sodium 1 % topical gel 2 g topical TID PRN Pain 04/02/23 08/02/25 pioglitazone 30 mg tablet 30 mg PO DAILY 04/02/23 08/02/25 sildenafil 100 mg tablet 100 mg PO DAILY PRN NEEDED 04/02/23 08/02/25 apple cider vinegar 600 mg capsule 450 mg PO DAILY 01/13/25 08/02/25 brimonidine 0.2 % eye drops 1 drp ophthalmic (eye) BID 01/13/25 08/02/25 gabapentin 100 mg capsule 100 mg PO TID 01/13/25 08/02/25 garlic 1,000 mg capsule (garlic 1,000 mg PO DAILY 01/13/25 08/02/25 oil) hydrophilic cream applic topical QID PRN 01/13/25 08/02/25 insulin glargine 100 unit/mL 22 unit subcut DAILY 01/13/25 08/02/25 subcutaneous solution levetiracetam 500 mg tablet 500 mg PO DAILY 01/13/25 08/02/25 multivitamin 1 tab PO BID 01/13/25 08/02/25 polyethylene glycol 3350 17 17 g PO DAILY PRN 01/13/25 08/02/25 gram/dose oral powder (Miralax) sennosides 8.6 mg tablet 8.6 mg PO HS 01/13/25 08/02/25 tamsulosin 0.4 mg capsule 0.4 mg PO DAILY 01/13/25 08/02/25 travoprost 0.004 % eye drops 1 drp ophthalmic (eye) HS 01/13/25 08/02/25 Previous Rx's Medication Instructions Recorded ergocalciferol (vitamin D2) 1,250 1,250 mcg PO .COMPLEX #14 caps 03/30/25 mcg (50,000 unit) capsule Results & Data (ED) Vital Signs Vital Signs - 24 hr 09/22/25 21:00 09/22/25 21:00 09/22/25 21:00 Temperature 37.3 C Temperature Source Oral Pulse Rate 111 H Pulse Rate from SpO2 Sensor Respiratory Rate 14 Respiratory Effort / Characteristics Non-Labored Spontaneous Respiratory Depth Normal Respiratory Pattern Regular Blood Pressure 98/52 L Blood Pressure Mean 67 Pulse Oximetry 93 93 93 Oxygen Delivery Method Room Air Room Air Room Air Sepsis Recent Fever Within 48 Hours No Sepsis New/Unexplained Change in Mental Status N/A Sepsis Action Taken by Nursing Physician Notified 09/22/25 21:18 09/22/25 21:18 09/22/25 21:30 Temperature Temperature Source Pulse Rate 110 H 110 H 107 H Pulse Rate from SpO2 Sensor 110 H 107 H Respiratory Rate 18 25 H Respiratory Effort / Characteristics Respiratory Depth Respiratory Pattern Blood Pressure 98/52 L 121/67 Blood Pressure Mean 67 85 Pulse Oximetry 96 95 Oxygen Delivery Method Sepsis Recent Fever Within 48 Hours Sepsis New/Unexplained Change in Mental Status Sepsis Action Taken by Nursing 09/22/25 21:45 09/22/25 22:00 09/22/25 22:03 Temperature Temperature Source Pulse Rate 110 H 121 H 110 H Pulse Rate from SpO2 Sensor 112 H 110 H Respiratory Rate 25 H 37 H 35 H Respiratory Effort / Characteristics Respiratory Depth Respiratory Pattern Blood Pressure 98/58 L 98/58 L Blood Pressure Mean 71 71 Pulse Oximetry 94 95 Oxygen Delivery Method Room Air Sepsis Recent Fever Within 48 Hours Sepsis New/Unexplained Change in Mental Status Sepsis Action Taken by Nursing 09/22/25 22:15 09/22/25 22:30 09/22/25 22:45 Temperature Temperature Source Pulse Rate 113 H 106 H 103 H Pulse Rate from SpO2 Sensor 116 H 105 H 107 H Respiratory Rate 12 26 H 26 H Respiratory Effort / Characteristics Respiratory Depth Respiratory Pattern Blood Pressure 104/43 L 97/54 L 132/46 L Blood Pressure Mean 63 68 74 Pulse Oximetry 83 L 95 95 Oxygen Delivery Method Room Air Sepsis Recent Fever Within 48 Hours Sepsis New/Unexplained Change in Mental Status Sepsis Action Taken by Nursing 09/22/25 23:03 09/22/25 23:15 09/22/25 23:30 Temperature Temperature Source Pulse Rate 107 H 105 H 103 H Pulse Rate from SpO2 Sensor 108 H Respiratory Rate 18 20 19 Respiratory Effort / Characteristics Respiratory Depth Respiratory Pattern Blood Pressure 102/52 L 104/62 Blood Pressure Mean 68 76 Pulse Oximetry 92 95 94 Oxygen Delivery Method Room Air Room Air Room Air Sepsis Recent Fever Within 48 Hours Sepsis New/Unexplained Change in Mental Status Sepsis Action Taken by Nursing 09/22/25 23:45 Temperature Temperature Source Pulse Rate 98 H Pulse Rate from SpO2 Sensor Respiratory Rate 16 Respiratory Effort / Characteristics Respiratory Depth Respiratory Pattern Blood Pressure Blood Pressure Mean Pulse Oximetry 92 Oxygen Delivery Method Room Air Sepsis Recent Fever Within 48 Hours Sepsis New/Unexplained Change in Mental Status Sepsis Action Taken by Long-Term Medications Current Medication List: was personally reviewed by me Laboratory Data Attestation: I reviewed the patient's lab results. 09/22/25 21:50 09/22/25 21:50 Lab Results 09/22/25 09/22/25 Range/Units 21:50 22:20 WBC 2.70 L (4.8-10.8) K/ul RBC 3.56 L (4.70-6.10) M/uL Hgb 11.0 L (14.0-18.0) g/dL Hct 32.7 L (42.0-52.0) % MCV 91.9 (80.0-100.0) fL MCH 30.9 (25.0-34.0) pg MCHC 33.6 (32.0-36.0) g/dL RDW Std Deviation 46.5 H (36.4-46.3) fL RDW Coeff of Erica 13.7 (11.5-14.5) % Plt Count 116 L (130-400) K/uL MPV 8.9 L (9.4-12.4) fL Immature Gran % (Auto) 0.7 % Neut % (Auto) 89.0 % Lymph % (Auto) 5.9 % Eaton % (Auto) 3.3 % Eos % (Auto) 1.1 % Baso % (Auto) 0.0 % Neut # (Auto) 2.40 (1.40-6.50) K/uL Lymph # (Auto) 0.16 L (1.20-3.40) K/uL Eaton # (Auto) 0.09 L (0.11-0.59) K/uL Eos # (Auto) 0.03 (0.00-0.50) K/uL Baso # (Auto) 0.00 (0.00-0.20) K/uL Immature Gran # (Auto) 0.02 (0.01-0.20) K/uL Sodium 135 L (136-145) mmol/L Potassium 4.4 (3.5-5.1) mmol/L Chloride 104 (98-107) mmol/L Carbon Dioxide 22 (21-32) mmol/L Anion Gap 9 (3-11) BUN 44 H (6-23) mg/dl Creatinine 2.22 H (0.6-1.4) mg/dl Est Cr Clr Drug Dosing 27.5 ml/min eGFR 29.40 BUN/Creatinine Ratio 19.8 (10-20) Glucose 161 H (70-99(Fasting)) mg/dl Lactate 2.7 H* (0.4-2.0) mmol/L Calcium 8.0 L (8.6-10.3) mg/dl Magnesium 1.6 L (1.7-2.4) mg/dl Total Bilirubin 1.9 H (0.2-1.0) mg/dl Direct Bilirubin 1.4 H (0-0.2) mg/dl AST 559 H (13-39) U/L ALT 431 H (7-52) U/L Alkaline Phosphatase 91 (34-104) U/L Troponin I High Sens 16.9 (0-20) pg/ml Total Protein 6.1 (6.0-8.3) gm/dl Albumin 3.5 (3.4-5.0) gm/dl Lipase 39 (11-82) U/L Procalcitonin 48.80 H (0-0.5) ng/ml SARS-CoV-2 (PCR) NEGATIVE (Negative) Influenza Type A (PCR) Negative (Neg) Influenza Type B (PCR) Negative (Neg) RSV (RT-PCR) Negative (Neg) Administered Medications Vancomycin HCl 2,000 mg/ (Sodium Chloride) 540 mls @ 200 mls/hr IV NOW ONE Stop: 09/23/25 01:22 Last Admin: 09/23/25 00:05 Dose: 200 mls/hr Documented By: SAUMYA Discontinued Medications Sodium Chloride (Nss) 1,000 mls @ 999 mls/hr IV .Q1H1M DILSHAD Stop: 09/22/25 22:30 Last Infusion: 09/22/25 23:00 Dose: Infused Documented By: Admin: 09/22/25 21:50 Dose: 999 mls/hr Documented By: MIRA Piperacillin Sod/Tazobactam Sod (Zosyn) 4.5 gm in 100 mls @ 200 mls/hr IV NOW ONE; Protocol Stop: 09/22/25 21:52 Last Infusion: 09/22/25 23:00 Dose: Infused Documented By: Admin: 09/22/25 22:17 Dose: 200 mls/hr Documented By: MIRA Magnesium Sulfate/Dextrose (Magnesium Sulfate / D5w) 1 gm in 100 mls @ 100 mls/hr IV NOW STA Stop: 09/22/25 23:41 Last Infusion: 09/23/25 00:05 Dose: Infused Documented By: Admin: 09/22/25 23:03 Dose: 100 mls/hr Documented By: MIRA Sodium Chloride (Nss) 500 mls @ 999 mls/hr IV .Q31M ONE Stop: 09/22/25 23:12 Last Infusion: 09/22/25 23:35 Dose: Infused Documented By: Admin: 09/22/25 23:03 Dose: 999 mls/hr Documented By: MIRA Sodium Chloride (Nss) 500 mls @ 999 mls/hr IV .Q31M ONE Stop: 09/22/25 23:30 Last Admin: 09/22/25 23:50 Dose: 999 mls/hr Documented By: SAUMYA Acetaminophen (Ofirmev) 1,000 mg in 100 mls @ 400 mls/hr IV NOW STA Stop: 09/22/25 23:30 Last Infusion: 09/23/25 00:05 Dose: Infused Documented By: Admin: 09/22/25 23:50 Dose: 400 mls/hr Documented By: SAUMYA Imaging Data Radiologist's Impression: Abdomen/Pelvis CT 09/22/25 22:45 Exam(s): CT ABDOMEN + PELVIS Without Contrast EXAM: CT Abdomen and Pelvis Without Intravenous Contrast CLINICAL HISTORY: Reason for exam: transaminitis. OTHER: Other Notes: transaminitis TECHNIQUE: Axial computed tomography images of the abdomen and pelvis without intravenous contrast. CTDI is 27.19 mGy and DLP is 1476.24 mGy-cm. Automated exposure control was utilized for the study. A dose lowering technique was utilized adhering to the principles of ALARA. COMPARISON: No relevant prior studies available. FINDINGS: Lung bases: Unremarkable. No mass. No consolidation. ABDOMEN: Liver: Hepatomegaly. Gallbladder and bile ducts: Cholelithiasis with subtle inflammatory changes about the gallbladder neck. No intra or extrahepatic biliary ductal dilatation. Pancreas: Unremarkable. No ductal dilation. Spleen: Splenomegaly. Adrenals: Unremarkable. No mass. Kidneys and ureters: Unremarkable. No obstructing stones. No hydronephrosis. Stomach and bowel: Diverticulosis without evidence of diverticulitis. No obstruction. PELVIS: Appendix: No findings to suggest acute appendicitis. Bladder: Unremarkable. No stones. Reproductive: Unremarkable as visualized. ABDOMEN and PELVIS: Intraperitoneal space: Unremarkable. No free air. No significant fluid collection. Bones/joints: Postop changes ORIF right femoral fracture. Postop changes L 4 through S1 interbody fusion. No dislocation. Soft tissues: Unremarkable. Vasculature: Unremarkable. No abdominal aortic aneurysm. Lymph nodes: Unremarkable. No enlarged lymph nodes. IMPRESSION: Hepatomegaly Cholelithiasis with subtle inflammatory changes about the cystic duct. Findings may represent the sequelae of biliary colic.. Splenomegaly Diverticulosis without evidence of diverticulitis Electronically signed by: Otto Salas MD 09/22/25 23:55 PM Discharge Plan Visit Data Chief Complaint: Weakness Stated Complaint: Weakness, Unable to Ambulate ED Provider: Maverick Martinez Discharge Problem: Sepsis, HEMANT (acute kidney injury), Cholelithiasis, Hypomagnesemia Patient Disposition: Admitted As Inpatient Condition: Good Forms Stand Alone Forms: My [facility] [place] [employer] Prescriptions Prescriptions: No Action apple cider vinegar 600 mg capsule 450 mg PO DAILY brimonidine 0.2 % drops 1 drp ophthalmic (eye) BID Rx Instructions: administer approximately 8 hours apart gabapentin 100 mg capsule 100 mg PO TID garlic [garlic oil] 1,000 mg capsule 1,000 mg PO DAILY insulin glargine 100 unit/mL solution 22 unit SUBCUT DAILY hydrophilic cream Cream topical QID PRN levetiracetam 500 mg tablet 500 mg PO DAILY multivitamin Tablet 1 tab PO BID polyethylene glycol 3350 [Miralax] 17 gram/dose powder 17 g PO DAILY PRN sennosides 8.6 mg tablet 8.6 mg PO HS tamsulosin 0.4 mg capsule 0.4 mg PO DAILY travoprost 0.004 % drops 1 drp ophthalmic (eye) HS ergocalciferol (vitamin D2) 1,250 mcg (50,000 unit) capsule 1,250 mcg PO .COMPLEX Qty: 14 0RF Rx Instructions: 1,250 mcg orally weekly; atorvastatin 40 mg Tablet 40 mg PO HS Hold Instructions: Resume on 05/22/23. On hold until your are on Daptomycin. You will need CPK level prior to resuming the statin. Coordinate with PCP office once you are done with daptomycin. amlodipine 5 mg Tablet 5 mg PO DAILY sildenafil 100 mg Tablet 100 mg PO DAILY PRN (Reason: NEEDED) pioglitazone 30 mg Tablet 30 mg PO DAILY diclofenac sodium 1 % Gel 2 g TOPICAL TID PRN (Reason: Pain) Referrals Referrals: Blanca Nicole PA-C [Primary Care Provider] - Discharge Problem: Sepsis Qualifiers: Sepsis type: sepsis due to unspecified organism Sepsis acute organ dysfunction status: with acute organ dysfunction Severe sepsis acute organ dysfunction type: acute renal failure Acute renal failure type: unspecified Severe sepsis shock status: without septic shock Qualified Code(s): A41.9 - Sepsis, unspecified organism; R65.20 - Severe sepsis without septic shock; N17.9 - Acute kidney failure, unspecified Cholelithiasis Qualifiers: Cholelithiasis location: gallbladder Cholecystitis acuity: acute
[2025-09-22] MEDS: SODIUM CHLORIDE 0.9% 1,000 ML IV SCH (21:50)
[2025-09-22 22:17] LABS: Hematocrit (blood only) 32.7 % (42.0-52.0); Hemoglobin 11.0 g/dL (14.0-18.0); Immature Granulocytes # (auto) 0.02 K/uL (0.01-0.20); Immature Granulocytes % (auto) 0.7 %; Mean Corpuscular Hemoglobin 30.9 pg (25.0-34.0); Mean Corpuscular Volume 91.9 fL (80.0-100.0); Platelet Count 116 K/uL (130-400); RDW Standard Deviation 46.5 fL (36.4-46.3); Red Blood Count 3.56 M/uL (4.70-6.10); White Blood Count 2.70 K/ul (4.8-10.8)
[2025-09-22] MEDS: PIPERACILLIN/TAZOBACTAM 4.5 GM/100 ML BAG IV ONE (22:17)
[2025-09-22 22:34] LABS: Alanine Aminotransferase 431.0 U/L (7-52); Albumin Level 3.5 gm/dl (3.4-5.0); Alkaline Phosphatase 91.0 U/L (34-104); Anion Gap 9.0 (3-11); Bilirubin,Total 1.9 mg/dl (0.2-1.0); Blood Urea Nitrogen 44.0 mg/dl (6-23); Calcium 8.0 mg/dl (8.6-10.3); Carbon Dioxide 22.0 mmol/L (21-32); Chloride 104.0 mmol/L (98-107); Creatinine Clr Calc Pharmacy 27.5 ml/min; Glucose 161.0 mg/dl (70-99(Fasting)); Magnesium 1.6 mg/dl (1.7-2.4); Potassium 4.4 mmol/L (3.5-5.1); Sodium 135.0 mmol/L (136-145); Total Protein 6.1 gm/dl (6.0-8.3)
[2025-09-22] MEDS ORDERED: VANCOMYCIN CONSULT ACTIVE PRN (22:41)
[2025-09-22 22:59] LABS: Lipase 39.0 U/L (11-82)
[2025-09-22] MEDS: MAGNESIUM SULFATE / D5W 1 GM/100 ML BAG IV STA (23:03)
[2025-09-22] MEDS: SODIUM CHLORIDE 0.9% 500 ML IV ONE ×2 (23:03→23:50)
[2025-09-22 23:08] LABS: Influenza A virus by PCR Negative (Neg); Influenza B virus by PCR Negative (Neg); SARS CoV2 RNA(COVID-19) Ceph NEGATIVE (Negative)
[2025-09-22] MEDS: ACETAMINOPHEN 1,000 MG/100 ML VIAL IV STA (23:50)
--- NOTE | 2025-09-22 23:56 | CT Scan Report ---
Exam(s): CT ABDOMEN + PELVIS Without Contrast EXAM: CT Abdomen and Pelvis Without Intravenous Contrast CLINICAL HISTORY: Reason for exam: transaminitis. OTHER: Other Notes: transaminitis TECHNIQUE: Axial computed tomography images of the abdomen and pelvis without intravenous contrast. CTDI is 27.19 mGy and DLP is 1476.24 mGy-cm. Automated exposure control was utilized for the study. A dose lowering technique was utilized adhering to the principles of ALARA. COMPARISON: No relevant prior studies available. FINDINGS: Lung bases: Unremarkable. No mass. No consolidation. ABDOMEN: Liver: Hepatomegaly. Gallbladder and bile ducts: Cholelithiasis with subtle inflammatory changes about the gallbladder neck. No intra or extrahepatic biliary ductal dilatation. Pancreas: Unremarkable. No ductal dilation. Spleen: Splenomegaly. Adrenals: Unremarkable. No mass. Kidneys and ureters: Unremarkable. No obstructing stones. No hydronephrosis. Stomach and bowel: Diverticulosis without evidence of diverticulitis. No obstruction. PELVIS: Appendix: No findings to suggest acute appendicitis. Bladder: Unremarkable. No stones. Reproductive: Unremarkable as visualized. ABDOMEN and PELVIS: Intraperitoneal space: Unremarkable. No free air. No significant fluid collection. Bones/joints: Postop changes ORIF right femoral fracture. Postop changes L 4 through S1 interbody fusion. No dislocation. Soft tissues: Unremarkable. Vasculature: Unremarkable. No abdominal aortic aneurysm. Lymph nodes: Unremarkable. No enlarged lymph nodes. IMPRESSION: Hepatomegaly Cholelithiasis with subtle inflammatory changes about the cystic duct. Findings may represent the sequelae of biliary colic.. Splenomegaly Diverticulosis without evidence of diverticulitis Electronically signed by: Otto Salas MD 09/22/25 23:55 PM
[2025-09-23] MEDS: VANCOMYCIN HCL 2,000 MG in SODIUM CHLORIDE 0.9% 500 ML IV ONE (00:05)
[2025-09-23] MEDS: CALCIUM GLUCONATE 1,000 MG/60 ML BAG IV STA (00:38)
[2025-09-23] MEDS: MAGNESIUM SULFATE / D5W 1 GM/100 ML BAG IV ONE (00:39)
[2025-09-23] MEDS: SODIUM CHLORIDE 0.9% 500 ML IV ONE ×2 (00:39→02:30)
--- NOTE | 2025-09-23 02:00 | XRay Report ---
Exam(s): XR CXR 1 VIEW EXAM: XR Chest, 1 View CLINICAL HISTORY: Reason for exam: Sepsis. TECHNIQUE: Frontal view of the chest. COMPARISON: No relevant prior studies available. FINDINGS: Lungs: Hypoventilation. No consolidation. Pleural space: No significant pleural effusion. No pneumothorax. Heart: No cardiomegaly or pulmonary vascular congestion. Bones/joints: No acute fracture. No dislocation. IMPRESSION: No evidence of acute cardiopulmonary disease. Electronically signed by: Kim Manuel M.D. 09/23/25 01:59 AM
--- NOTE | 2025-09-23 02:23 | History & Physical Report ---
Date of Service September 23, 2025 Assessment & Plan (1) Sepsis: Plan: 80-year-old male with past med history significant for chronic kidney disease who required dialysis in the past because of HEMANT associated with osteomyelitis currently stage IIIb-IV and not on dialysis, history of diabetes, peripheral neuropathy, hyperlipidemia, seizure disorder, pancytopenia, osteoarthritis, BPH with LUTS, hypertension, peripheral vascular disease, glaucoma presents with weakness and not feeling well and found to be in sepsis. is in the room. In the afternoon patient complained of chest pain. That got resolved. During suppertime patient was not able to eat anything ,was feeling very weak and having fevers and was brought to the ER. In the ER patient is afebrile. Blood pressure is soft. Initial lactic is 2.7 and repeat is 2.2. Magnesium 1.6. Calcium 8. Total bili 1.9. AST 69. ALT 431. Alkaline phos 91. Procalcitonin 48. CT of abdomen pelvis showing cholelithiasis with subtle inflammatory changes about the cystic duct. ER discussed with the GI and surgery and was recommended MRCP. Patient resting comfortably. Somewhat hard to hear. Patient states currently there is no chest pain. Currently denies nausea or abdominal pain. No headache. No runny nose or sore throat. No cough. Normal bowel bladder movements.Complains of back pain and recently had two shots to his back.Ambulates with a walker.[facility] Sepsis Presented with weakness Soft blood pressures Elevated LFTs Procalcitonin 48 Initial lactic 2.[address] scan of abdomen pelvis showing possible cholecystitis ER discussed with GI and surgery and MRCP recommended and was ordered Received aggressive fluids in the ER. Received IV Vanco and Zosyn Will continue with IV Vanco and Zosyn and IV normal saline 125 mill per hour Monitor hemodynamics closely if not improving will discuss with ICU Will follow repeat lactic acid HEMANT on CKD stage IIIb/IV Baseline creatinine 1.5-2 Presented with creatinine 2.2 Will follow repeat labs History of dialysis in the past If not improving will consult nephrology Pancytopenia Follows with [facility] in [place] [facility] [place] WBC 2.7, hemoglobin 11, platelets 116 Will follow labs Diabetes Hold pioglitazone Will cut back on Lantus to 10 units daily as patient currently n.p.o. Insulin sliding scale Close monitor BPH Holding Flomax for now s/p frye Hyperlipidemia Holding statin for elevated LFTs Glaucoma Continue home eyedrops History of seizures Continue home Keppra Hypertension Holding amlodipine for sepsis Hypomagnesia and hypocalcemia Replacing Repeat labs Will check vitamin D levels DVT prophylaxis SCDs for now Disposition Telemetry CODE STATUS full code as per discussion with the Addendum: As SBP dropped even after fluid resuscitation transferred to ICU for pressors. Notified . 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 is in the room. In the afternoon patient complained of chest pain. That got resolved. During suppertime patient was not able to eat anything ,was feeling very weak and having fevers and was brought to the ER. In the ER patient is afebrile. Blood pressure is soft. Initial lactic is 2.7 and repeat is 2.2. Magnesium 1.6. Calcium 8. Total bili 1.9. AST 69. ALT 431. Alkaline phos 91. Procalcitonin 48. CT of abdomen pelvis showing cholelithiasis with subtle inflammatory changes about the cystic duct. ER discussed with the GI and surgery and was recommended MRCP. Patient resting comfortably. Somewhat hard to hear. Patient states currently there is no chest pain. Currently denies nausea or abdominal pain. No headache. No runny nose or sore throat. No cough. Normal bowel bladder movements.Complains of back pain and recently had two shots to his back.Ambulates with a walker. [facility] Past medical history. As mentioned above. Past surgical history. History of lumbar fusion. History of right foot transmetatarsal amputation. History of left foot transmetatarsal amputation. Social history. Former smoker. No alcohol use. No drug use. Family history. Father had colorectal cancer. Allergies Allergy/AdvReac Type Severity Reaction Status Date / Time cefepime Allergy Unknown SEE COMMENT Verified 08/02/25 10:47 simvastatin AdvReac Intermediate Gastrointestinal Verified 08/02/25 10:47 Upset Home Medications Medication Instructions Recorded Confirmed Type amlodipine 5 mg tablet 5 mg PO DAILY 09/23/25 09/23/25 History apple cider vinegar 600 mg capsule 450 mg PO DAILY 09/23/25 09/23/25 History atorvastatin 40 mg tablet 40 mg PO DAILY 09/23/25 09/23/25 History brimonidine 0.2 % eye drops 1 drp ophthalmic (eye) BID 09/23/25 09/23/25 History diclofenac sodium 3 % topical gel 1 applic topical TID PRN Pain 09/23/25 09/23/25 History gabapentin 100 mg capsule 100 mg PO TID 09/23/25 09/23/25 History insulin glargine 100 unit/mL 22 unit subcut DAILY 09/23/25 09/23/25 History subcutaneous solution levetiracetam 500 mg tablet 500 mg PO DAILY 09/23/25 09/23/25 History multivitamin 1 tab PO DAILY 09/23/25 09/23/25 History pioglitazone 30 mg tablet 30 mg PO DAILY 09/23/25 09/23/25 History polyethylene glycol 3350 17 gram 17 g PO DAILY PRN Constipation 09/23/25 09/23/25 History oral powder packet (Miralax) sennosides 8.6 mg capsule (senna) 8.6 mg PO HS 09/23/25 09/23/25 History sildenafil 100 mg tablet 100 mg PO UD PRN Erectile 09/23/25 09/23/25 History Dysfunction tamsulosin 0.4 mg capsule 0.4 mg PO DAILY 09/23/25 09/23/25 History travoprost 0.004 % eye drops 1 drp ophthalmic (eye) PM 09/23/25 09/23/25 History Past Med/Surg History Problem List (Updated 09/23/25 @ 05:34 by MARSHA Henning) Elevated LFTs Septic shock Hypomagnesemia (Acute) Cholelithiasis (Acute) HEMANT (acute kidney injury) (Acute) Sepsis (Acute) Chronic low back pain Postlaminectomy syndrome of lumbosacral region Lumbar degenerative disc disease Lumbar facet joint syndrome Leg length discrepancy Chronic kidney disease Medical History History of renal dialysis Foot osteomyelitis, right Foot osteomyelitis, left Pancytopenia PVD (peripheral vascular disease) HLD (hyperlipidemia) HTN (hypertension) T2DM (type 2 diabetes mellitus) Glaucoma Surgical History History of lumbar fusion Early 1999. L4-S1 laminectomy and fusion. 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 Family History Father Cancer Colorectal cancer Mother Old age Social History Smoking Status: Former smoker Second Hand Exposure: No; Do You Dip or Chew Tobacco: No; Hx Alcohol Use: No Hx Substance Use: No Preferred Language: [place] Communication Ability: Impaired Communication Ability Comment: CIRCLE Visual Impairment: No Limitations Hearing Ability: Use of Hearing Aid Animal Eviscerator Required: No Beliefs That Will Affect Care: None Current Living Situation: Significant Other Current Living Situation Comment: lives w/ girlfriend Cynthia current occupational status: retired How many Children do You have: 2 Feels Safe at Home: Yes Safety Concerns: Feels Safe At This Time caffeine: Yes Dental Care, Regularly: Yes Do you think of yourself as: straight/heterosexual Gender Identity: Male Assistive Devices: Scooter/Electric Scooter, Walker and Wheelchair Review of Systems Review of Systems: All systems reviewed & are unremarkable except as noted in HPI & below Physical Exam Physical Exam: General- Not in distress Head- atraumatic Eyes- PERRL. ENT- oropharynx clear Neck- supple, no JVD. Lungs- clear to auscultation no wheezing or crackles Heart- regular rhythm; no murmur, no gallop. Abdomen- normal bowel sounds, soft, nontender, no distension Extremities- no pretibial edema, no erythema seen. s/p b/l foot transmetatarsal amputation Neuro- alert, oriented PERRL, no facial palsy; no dysarthria; moves extremities. Skin- warm & dry, no rashes seen. No sacral pressure ulcer seen Results & Data Results & Data Vital Signs (Past 12 Hours) Vital Signs Temp Pulse Resp BP Pulse Ox O2 Del Method 09/23/25 01:45 82 21 98/53 L 93 Room Air 09/23/25 01:30 84 20 91/49 L 93 Room Air 09/23/25 01:15 86 17 80/64 L 93 Room Air 09/23/25 01:15 85 09/23/25 01:00 86 21 87/43 L 93 Room Air 09/23/25 00:51 85 19 86/49 L 93 Room Air 09/23/25 00:45 86 16 94 Room Air 09/23/25 00:30 90 20 82/47 L 93 Room Air 09/23/25 00:15 91 H 24 98/53 L 94 Room Air 09/23/25 00:00 94 H 24 96/56 L 92 Room Air 09/22/25 23:46 88/57 L 09/22/25 23:45 98 H 16 92 Room Air 09/22/25 23:30 103 H 19 94 Room Air 09/22/25 23:15 105 H 20 104/62 95 Room Air 09/22/25 23:03 107 H 18 102/52 L 92 Room Air 09/22/25 22:45 103 H 26 H 132/46 L 95 09/22/25 22:30 106 H 26 H 97/54 L 95 Room Air 09/22/25 22:15 113 H 12 104/43 L 83 L 09/22/25 22:03 110 H 35 H 98/58 L 95 09/22/25 22:00 121 H 37 H 98/58 L 94 Room Air 09/22/25 21:45 110 H 25 H 09/22/25 21:30 107 H 25 H 121/67 95 09/22/25 21:18 110 H 18 98/52 L 96 09/22/25 21:18 110 H 09/22/25 21:00 93 Room Air 09/22/25 21:00 93 Room Air 09/22/25 21:00 37.3 C 111 H 14 98/52 L 93 Room Air Diagnostic Findings Laboratory Results WBC 2.70 K/ul (4.8-10.8) L 09/22/25 21:50 RBC 3.56 M/uL (4.70-6.10) L 09/22/25 21:50 Hgb 11.0 g/dL (14.0-18.0) L 09/22/25 21:50 Hct 32.7 % (42.0-52.0) L 09/22/25 21:50 MCV 91.9 fL (80.0-100.0) 09/22/25 21:50 MCH 30.9 pg (25.0-34.0) 09/22/25 21:50 MCHC 33.6 g/dL (32.0-36.0) 09/22/25 21: RDW Std Deviation 46.5 fL (36.4-46.3) H 09/22/25 21:50 RDW Coeff of Erica 13.7 % (11.5-14.5) 09/22/25: Plt Count 116 K/uL (130-400) L 09/22/25 21: MPV 8.9 fL (9.4-12.4) L 09/22/25 21:50 Immature Gran % (Auto) 0.7 % 09/22/25 21:50 Neut % (Auto) 89.0 % 09/22/25 21:50 Lymph % (Auto) 5.9 % 09/22/25 21:50 [place] % (Auto) 3.3 % 09/22/25 21:50 Eos % (Auto) 1.1 % 09/22/25 21:50 Baso % (Auto) 0.0 % 09/22/25 21:50 Neut # (Auto) 2.40 K/uL (1.40-6.50) 09/22/25 21:50 Lymph # (Auto) 0.16 K/uL (1.20-3.40) L 09/22/25 21:50 [place] # (Auto) 0.09 K/uL (0.11-0.59) L 09/22/25 21:50 Eos # (Auto) 0.03 K/uL (0.00-0.50) 09/22/25 21:50 Baso # (Auto) 0.00 K/uL (0.00-0.20) 09/22/25 21:50 Immature Gran # (Auto) 0.02 K/uL (0.01-0.20) 09/22/25 21:50 Sodium 135 mmol/L (136-145) L 09/22/25 21:50 Potassium 4.4 mmol/L (3.5-5.1) 09/22/25 21:50 Chloride 104 mmol/L (98-107) 09/22/25 21:50 Carbon Dioxide 22 mmol/L (21-32) 09/22/25 21:50 Anion Gap 9 (3-11) 09/22/25 21:50 BUN 44 mg/dl (6-23) H 09/22/25 21:50 Creatinine 2.22 mg/dl (0.6-1.4) H 09/22/25 21:50 Est Cr Clr Drug Dosing 27.5 ml/min 09/22/25 21:50 eGFR 29.40 09/22/25 21:50 BUN/Creatinine Ratio 19.8 (10-20) 09/22/25 21:50 Glucose 161 mg/dl (70-99(Fasting)) H 09/22/25 21:50 Lactate 2.2 mmol/L (0.4-2.0) H* 09/23/25 00:23 Calcium 8.0 mg/dl (8.6-10.3) L 09/22/25 21:50 Magnesium 1.6 mg/dl (1.7-2.4) L 09/22/25 21:50 Total Bilirubin 1.9 mg/dl (0.2-1.0) H 09/22/25 21:50 Direct Bilirubin 1.4 mg/dl (0-0.2) H 09/22/25 21:50 AST 559 U/L (13-39) H 09/22/25 21:50 ALT 431 U/L (7-52) H 09/22/25 21:50 Alkaline Phosphatase 91 U/L (34-104) 09/22/25 21:50 Troponin I High Sens 16.9 pg/ml (0-20) 09/22/25 21:50 Total Protein 6.1 gm/dl (6.0-8.3) 09/22/25 21:50 Albumin 3.5 gm/dl (3.4-5.0) 09/22/25 21:50 Lipase 39 U/L (11-82) 09/22/25 21:50 Procalcitonin 48.80 ng/ml (0-0.5) H 09/22/25 21:50 SARS-CoV-2 (PCR) NEGATIVE (Negative) 09/22/25 22:20 Influenza Type A (PCR) Negative (Neg) 09/22/25 22:20 Influenza Type B (PCR) Negative (Neg) 09/22/25 22:20 RSV (RT-PCR) Negative (Neg) 09/22/25 22:20 Impressions Chest X-Ray 09/22/25 21:22 Exam(s): XR CXR 1 VIEW EXAM: XR Chest, 1 View CLINICAL HISTORY: Reason for exam: Sepsis. TECHNIQUE: Frontal view of the chest. COMPARISON: No relevant prior studies available. FINDINGS: Lungs: Hypoventilation. No consolidation. Pleural space: No significant pleural effusion. No pneumothorax. Heart: No cardiomegaly or pulmonary vascular congestion. Bones/joints: No acute fracture. No dislocation. IMPRESSION: No evidence of acute cardiopulmonary disease. Electronically signed by: Kim Manuel M.D. 09/23/25 01:59 AM Abdomen/Pelvis CT 09/22/25 22:45 Exam(s): CT ABDOMEN + PELVIS Without Contrast EXAM: CT Abdomen and Pelvis Without Intravenous Contrast CLINICAL HISTORY: Reason for exam: transaminitis. OTHER: Other Notes: transaminitis TECHNIQUE: Axial computed tomography images of the abdomen and pelvis without intravenous contrast. CTDI is 27.19 mGy and DLP is 1476.24 mGy-cm. Automated exposure control was utilized for the study. A dose lowering technique was utilized adhering to the principles of ALARA. COMPARISON: No relevant prior studies available. FINDINGS: Lung bases: Unremarkable. No mass. No consolidation. ABDOMEN: Liver: Hepatomegaly. Gallbladder and bile ducts: Cholelithiasis with subtle inflammatory changes about the gallbladder neck. No intra or extrahepatic biliary ductal dilatation. Pancreas: Unremarkable. No ductal dilation. Spleen: Splenomegaly. Adrenals: Unremarkable. No mass. Kidneys and ureters: Unremarkable. No obstructing stones. No hydronephrosis. Stomach and bowel: Diverticulosis without evidence of diverticulitis. No obstruction. PELVIS: Appendix: No findings to suggest acute appendicitis. Bladder: Unremarkable. No stones. Reproductive: Unremarkable as visualized. ABDOMEN and PELVIS: Intraperitoneal space: Unremarkable. No free air. No significant fluid collection. Bones/joints: Postop changes ORIF right femoral fracture. Postop changes L 4 through S1 interbody fusion. No dislocation. Soft tissues: Unremarkable. Vasculature: Unremarkable. No abdominal aortic aneurysm. Lymph nodes: Unremarkable. No enlarged lymph nodes. IMPRESSION: Hepatomegaly Cholelithiasis with subtle inflammatory changes about the cystic duct. Findings may represent the sequelae of biliary colic.. Splenomegaly Diverticulosis without evidence of diverticulitis Electronically signed by: Otto Salas MD 09/22/25 23:55 PM ECG Additional Comments: ECG. Sinus tachycardia at rate of 109. Right bundle branch block. QTc 447 Code Status & VTE Plan VTE Prophylaxis Plan VTE Prophylaxis will be ordered: Yes (1) Sepsis Acute renal failure type: unspecified Sepsis acute organ dysfunction status: with acute organ dysfunction Sepsis type: sepsis due to unspecified organism Severe sepsis acute organ dysfunction type: acute renal failure Severe sepsis shock status: without septic shock Qualified Code(s): A41.9 - Sepsis, unspecified organism; R65.20 - Severe sepsis without septic shock; N17.9 - Acute kidney failure, unspecified
[2025-09-23] MEDS ORDERED: STAT IV Infusion **Titration per Protocol STA (03:29)
[2025-09-23] MEDS: NOREPINEPHRINE/D5W 4 MG/250 ML IV ONE (03:30)
[2025-09-23] MEDS: NOREPINEPHRINE/D5W 4 MG/250 ML PLCT IV SCH (03:34)
[2025-09-23 03:38] LABS: Appearance Urine Clear (Clear); Bacteria Urine Automated None Seen (None Seen); Epithelial Cell Urine Auto 0-2 /hpf (0-2); Glucose Urine UA Negative (Negative); RBC Urine Automated 0-2 /hpf (0-2); WBC Urine Automated 0-5 /hpf (0-5)
[2025-09-23] MEDS ORDERED: GLUCAGON FOR INJ 1 MG VIAL SQ PRN (04:09)
[2025-09-23] MEDS ORDERED: DEXTROSE 50% 50 ML SYRINGE IV PRN (04:09)
[2025-09-23] MEDS ORDERED: POLYETHYLENE (MIRALAX) 17 GM PACK PO PRN (04:09)
[2025-09-23] MEDS ORDERED: GLUCOSE 10 TAB/TUBE PO PRN (04:09)
[2025-09-23] MEDS ORDERED: ONDANSETRON INJ 2 MG/ML 2 ML VIAL IV PRN (04:09)
[2025-09-23] MEDS ORDERED: NITROGLYCERIN SL 0.4 MG/TAB TAB SL PRN (04:09)
[2025-09-23] MEDS ORDERED: PHARMACY GLYCEMIC MGMT CONSULT PRN (04:09)
[2025-09-23] MEDS ORDERED: GLUCOSE 40% GEL 15 GM TUBE PO PRN (04:09)
[2025-09-23] MEDS: SODIUM CHLORIDE 0.9% 1,000 ML IV SCH (04:21)
[2025-09-23] MEDS: INSULIN ASPART PER UNIT CHARGE SC SCH ×2 (04:21→16:59)
--- NOTE | 2025-09-23 05:12 | Critical Care Consultation ---
Date of Consultation September 23, 2025 Assessment & Plan (1) Septic shock: (2) Elevated LFTs: (3) Hypomagnesemia: (4) Cholelithiasis: (5) HEMANT (acute kidney injury): (6) Chronic low back pain: (7) Chronic kidney disease: Plan Reason Critically Ill: Patient reports to ER for complaints of chest and back pain, reports that his back pain is chronic in nature low back pain. He was noted to have increased LFTS, lactate and PCT, for which he had a CT scan of his abd/pelvis with concern of cholelithiasis, he was initiated on abx, cultures obtained- he received 4.5 L crystalloid over his ER eval and during his admission process for hypotension, now requiring vasopressor therapy. Awaiting MRCP, lactate has cleared. Neuro - Back pain - acute on chronic lower [facility] ICU: NEGATIVE - Pain is in lower back and he feels that this is in its normal location, reports pain being very well controlled following injection on Friday until yesterday. - No neurological deficit noted on exam- sensation intact through lower extremities and strength is equal, no loss ob bowel or bladder per patient - now with frye - no erythema to back - mentation appears normal at this time - Has history of cefepime induced encephalopathy- would avoid - Continue gabapentin- renal dose if renal function worsens - Seizure disorder history - noted in chart unspecified- continue keppra Cardiac - shock sepsis - Shock at this time appears septic in nature- with source presumed to be GI related with abnormal LFTS and imaging favoring cholelithiasis- MRCP is pending at this time - GI and GS consulted - appreciate follow on - Has been well resuscitated with crystalloid at this time - 4.5 L - Remained hypotensive - LEVOphed at this time low dose with good response to MAPS- wean as able - Hold antihypertensives - Continue Statin Respiratory - No acute needs - denies use of CPAP at home, but hypoxia while sleeping noted- 2LNC for now GI - Elevated LFTs and bili, abnormal abd/ CT concern for cholelithiasis - LFTS elevated with elevated bili- these are downtrending this morning following resuscitaiton and MAP goals being met - NPO - Lipase normal - See ID section for further discussion - Will send tyelnol level for completeness as well as INR- if elevation of labs not felt to be related to GB - obtain RUQUS with dopplers of liver RENAL/LYTES - HEMANT on CKD, hypomag - Patient with history of RF in 2022 requiring dialysis for 2 years via [facility]- stopped dialysis in Spring 2024 - follow renal indices and renal adjust medications per CRCL - Avoid nephrotoxic medications as able and if needed minimize exposure time - no acute needs - frye to gravity while on vasopressors- hx of BPH and LUTS- UA negative for infective appearance ENDO - DMII - ICU hyperglycemic protocol - Hold oral agents HEME - anemia - anemia- likey chronic however will follow- appears normocytic at this time - decrease to 10 this morning likely some dilution following 4.5L crystalloid infusion - transfuse for active hemorrhage, HGB <7.0, or symptomatic <8 - Consider LDH if GI source of elevated bili is less likely ID - Septic shock- with organ dysfunction of renals and LFT - Source at this time appears likely consistent with cholelithiasis - MRCP pending and further surgical evaluation pending these results - Continue Zosyn and Vancomycin- if MRSA nares is negative can consider changing to Daptomycin if MRSA coverage still warranted - Blood cx- NGTD - Further source evaluation may be warranted but currently without nuerological deficits or murumurs LINES/IV ACCESS - PIV, frye Continue use of these lines DVT PROPHYLAXIS - SCDS, Heparin 7500 units subq q12- morbidly obese DISPO: ICU while on vasopressors I have personally spent 45 minutes of critical care time in the direct management of this patient. This is a life/limb threatening event. This includes time spent evaluating patient, direct bedside care, chart review, placing orders, interpretation of diagnostic studies, discussion with consultants, patient, and family members, as well as other required patient management activities. This time is exclusive of all separately billable procedures, and teaching time and separate from and in addition to any other critical care service time. Thank you for allowing us to participate in the care of this patient. Please refer to my attending physician's documentation for any further recommendations. Supervising Physician Co-Signing Physician Notes I have seen and evaluated the patient with the [employer] SUPERVISOR. I agree with the documented findings and plan in addition to the following. Patient is a 80-year-old male with a history of hypertension, hyperlipidemia, diabetes mellitus type 2, sciatic back pain, pancytopenia, BPH with history of LUTS, osteomyelitis, dialysis with renal recovery only no longer requiring HD. He presented to the hospital 09/22/2025 with abdominal pain and back pain. He was noted to be hypotensive on arrival to the emergency department. CT imaging of his abdomen pelvis showed cholelithiasis with biliary colic. He received fluid resuscitation with 4.8 L of crystalloids however due to continued hypotension he was started on norepinephrine. Labs on presentation were significant for WBC of 2.7, hemoglobin of 11 and platelets 116. Creatinine was 2.2 (last check was 1.8 in June), glucose was normal, lactic was 2.7 and decreased to 1.5 after IV fluids. Magnesium was low at 1.6. He did not have an anion gap. LFTs were elevated at 559 4 AST and 431 for ALT. Procalcitonin was 48.8. Urinalysis showed trace ketones with negative leukocyte esterase and negative nitrates. Blood cultures were performed which grew gram-negative bacilli which were identified as ESBL E. coli, the patient had been started on Zosyn and was transition to ertapenem. Gastroenterology were consulted. The patient underwent MRCP which showed small distal common bile duct stones with common bile duct dilation. The patient was taken for ERCP, choledocholithiasis was found and complete removal was accomplished by biliary sphincterotomy and balloon extraction. The patient's clinical status continued to improve. He was weaned off of norepinephrine at approximately 5 AM today. After ERCP the patient is feeling well. Not having any significant abdominal pain. No nausea. No fevers or chills. I updated him on the bacteremia and need for IV antibioti cs. Seems in good spirits and is eager to go to the floor out of the ICU. Patient has stabilized. He can be downgraded out of the ICU. Continue ertapenem. Follow GI recommendations. Given ESBL he may benefit from an infectious disease consultation. I have personally spent 45 minutes of critical care time in the direct management of this patient. This is a life/limb threatening event. This includes time spent evaluating patient, direct bedside care, chart review, placing orders, interpretation of diagnostic studies, discussion with consultants, patient, and family members, as well as other required patient management activities. This time is exclusive of all separately billable procedures, and teaching time and separate from and in addition to any other critical care service time. Please note the above document was generated using voice recognition software. It may contain grammatical, syntax or spelling errors. History of Present Illness Reason for Consultation: shock requiring vasopressors Requesting Physician: Delmar Liz Attending Physician: Ashleigh Linton MD History of Present Illness 80 YOM with medical history of: HTN, HLD, PVD, DMII, Sciatic back pain, pancytopenia, BPH with LUTS, ambulatory dysfunction, osteomyelitis, Dialysis with renal recovery no longer on dialysis. Patient came to the ER late in the evening of 11/23/25 for complaints of epigastric pain and back pain. The patient states that he noted some chest pain in the afternoon on 09/22/25 after eating, he reports that it was sharp pain in his chest and went into his stomach. He reports sitting in the chair for the rest of the day and as the evening progressed that his back started hurting and he then could not get up and go to the bathroom secondary to his back pain. Since he couldn't get up, EMS was called and patient was brought to the ER. In the Er the patient was noted to be hypotensive. He had routine blood work completed to include blood cultures, UA, and PCT. He had CT scan of his abd/pelvis which was reported concern of cholelithiasis with sequelae of biliary colic. Appears MRCP was recommended via GI and GS. Patient received 4.8 L of crystalloid through ER and admission, and remained with MAPS <65 and BP in the 70s- 80s, now requiring vasopressors. Patient arrived to ICU at 0500, he is awake, hard of hearing. Lactate has cleared on recent check at 0430 to 1.5. Labs review show elevated LFTS, elevated d. BILI and AlK. PCT 48.8. Deneies any epigastric pain however says that his back is still hurting him- he reports his back pain as chronic and did have recent injection on Friday he reports. CODE: FULL Allergies Allergy/AdvReac Type Severity Reaction Status Date / Time cefepime Allergy Unknown SEE COMMENT Verified 08/02/25 10:47 simvastatin AdvReac Intermediate Gastrointestinal Verified 08/02/25 10:47 Upset Home Medications Medication Instructions Recorded Confirmed Type amlodipine 5 mg tablet 5 mg PO DAILY 09/23/25 09/23/25 History apple cider vinegar 600 mg capsule 450 mg PO DAILY 09/23/25 09/23/25 History atorvastatin 40 mg tablet 40 mg PO DAILY 09/23/25 09/23/25 History brimonidine 0.2 % eye drops 1 drp ophthalmic (eye) BID 09/23/25 09/23/25 History diclofenac sodium 3 % topical gel 1 applic topical TID PRN Pain 09/23/25 09/23/25 History gabapentin 100 mg capsule 100 mg PO TID 09/23/25 09/23/25 History insulin glargine 100 unit/mL 22 unit subcut DAILY 09/23/25 09/23/25 History subcutaneous solution levetiracetam 500 mg tablet 500 mg PO DAILY 09/23/25 09/23/25 History multivitamin 1 tab PO DAILY 09/23/25 09/23/25 History pioglitazone 30 mg tablet 30 mg PO DAILY 09/23/25 09/23/25 History polyethylene glycol 3350 17 gram 17 g PO DAILY PRN Constipation 09/23/25 09/23/25 History oral powder packet (Miralax) sennosides 8.6 mg capsule (senna) 8.6 mg PO HS 09/23/25 09/23/25 History sildenafil 100 mg tablet 100 mg PO UD PRN Erectile 09/23/25 09/23/25 History Dysfunction tamsulosin 0.4 mg capsule 0.4 mg PO DAILY 09/23/25 09/23/25 History travoprost 0.004 % eye drops 1 drp ophthalmic (eye) PM 09/23/25 09/23/25 History Patient History Medical History (Updated 09/23/25 @ 10:02 by Norbert Reina MD) Encounter for pre-operative examination Chronic kidney disease HEMANT (acute kidney injury) Hypomagnesemia Septic shock Elevated LFTs History of renal dialysis Foot osteomyelitis, right Foot osteomyelitis, left Pancytopenia PVD (peripheral vascular disease) HLD (hyperlipidemia) HTN (hypertension) T2DM (type 2 diabetes mellitus) Glaucoma Surgical History History of lumbar fusion Early 1999. L4-S1 laminectomy and fusion. 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 Family History Father Cancer Colorectal cancer Mother Old age Social History Smoking Status: Former smoker Second Hand Exposure: No; Do You Dip or Chew Tobacco: No; Hx Alcohol Use: No Hx Substance Use: No Preferred Language: [place] Communication Ability: Impaired Communication Ability Comment: MI'KMAQ Visual Impairment: No Limitations Hearing Ability: Use of Hearing Aid Class A Lineman Required: No Beliefs That Will Affect Care: None Current Living Situation: Significant Other Current Living Situation Comment: lives w/ girlfriend Cynthia current occupational status: retired How many Children do You have: 2 Feels Safe at Home: Yes Safety Concerns: Feels Safe At This Time caffeine: Yes Dental Care, Regularly: Yes Do you think of yourself as: straight/heterosexual Gender Identity: Male Assistive Devices: Scooter/Electric Scooter, Walker and Wheelchair Review of Systems Review of Systems: REVIEW OF SYSTEMS: Constitutional: (+) fever, sweats or chills Eyes: No diplopia, no worsening or blurred vision ENT: (+) difficulty hearing, no trouble swallowing Respiratory: No cough, sputum, dyspnea at rest or on exertion Cardiovascular: No chest pain, tightness or palpitations Abdomen: No current pain, nausea, vomiting, diarrhea or constipation Musculoskeletal: (+) back pain, partial amputations of bilateral tarsals Neurologic: (+) walks with walker, No weakness, numbness/tingling, or balance problems Skin: No rash or itch Physical Exam Physical Exam: PHYSICAL EXAM: General: awake, alert, no apparent distress Head: Normocephalic, atraumatic ENT: PERRAL, EOMI, no pharyngeal exudate, mucous membranes moist Neuro: AAO x 3, speech clear and appropriate, strength intact bilaterally 5/5, sensation intact and equal upper and lower, no pronator drift, able to lift legs off bed and hold in air Chest: equal rise and fall of the chest, no accessory muscle use, no heaves or thrills, Clear to auscultation, on room air, Cardiac: Regular rate and rhythm, telemetry reviewed- NSR no ectopy, skin warm dry, cap refill <3 seconds, peripheral pulses +2 no JVD, no murmur, no edema GI: NABS x 4 quadrants, obese, nontender to palpation, no rebound, guarding : Frye to gravity draining chuy urine Extremities: Normal inspection, no peripheral edema or erythema, calfs nontender to palpation Psych: Normal mood and affect Skin: no rash or erythema Results & Data Results & Data Vital Signs (Past 12 Hours) Vital Signs Temp Pulse Pulse Resp BP BP Pulse Ox 09/23/25 04:14 37.0 C 81 22 105/59 L 94 09/23/25 04:09 09/23/25 04:04 105/59 L 09/23/25 04:04 105/59 L 09/23/25 04:04 105/59 L 09/23/25 04:04 105/59 L 09/23/25 04:04 105/59 L 09/23/25 04:03 83 14 91 09/23/25 03:45 78 23 109/72 90 09/23/25 03:44 09/23/25 03:35 76 17 89/53 L 94 09/23/25 03:30 79 18 84/53 L 93 09/23/25 03:15 79 20 73/50 L 92 09/23/25 03:00 79 22 87/52 L 94 09/23/25 02:45 81 18 91/50 L 90 09/23/25 02:30 83 15 87/51 L 90 09/23/25 02:15 82 16 82/50 L 92 09/23/25 02:00 82 18 96/52 L 92 09/23/25 01:46 91/49 L 09/23/25 01:45 82 21 98/53 L 93 09/23/25 01:30 84 20 91/49 L 93 09/23/25 01:15 86 17 80/64 L 93 09/23/25 01:15 85 09/23/25 01:00 86 21 87/43 L 93 09/23/25 00:51 85 19 86/49 L 93 09/23/25 00:45 86 16 94 09/23/25 00:40 36.8 C 09/23/25 00:30 90 20 82/47 L 93 09/23/25 00:15 91 H 24 98/53 L 94 09/23/25 00:00 94 H 24 96/56 L 92 09/22/25 23:46 88/57 L 09/22/25 23:45 98 H 16 92 09/22/25 23:30 103 H 19 94 09/22/25 23:15 105 H 20 104/62 95 09/22/25 23:03 107 H 18 102/52 L 92 09/22/25 22:45 103 H 26 H 132/46 L 95 09/22/25 22:30 106 H 26 H 97/54 L 95 09/22/25 22:15 113 H 12 104/43 L 83 L 09/22/25 22:03 110 H 35 H 98/58 L 95 09/22/25 22:00 121 H 37 H 98/58 L 94 09/22/25 21:45 110 H 25 H 09/22/25 21:30 107 H 25 H 121/67 95 09/22/25 21:18 110 H 18 98/52 L 96 09/22/25 21:18 110 H 09/22/25 21:00 93 09/22/25 21:00 93 09/22/25 21:00 37.3 C 111 H 14 98/52 L 93 Pulse Ox O2 Del Method O2 Del Method 09/23/25 04:14 Room Air 09/23/25 04:09 94 Room Air 09/23/25 04:04 09/23/25 04:04 09/23/25 04:04 09/23/25 04:04 09/23/25 04:04 09/23/25 04:03 09/23/25 03:45 Room Air 09/23/25 03:44 Room Air 09/23/25 03:35 Room Air 09/23/25 03:30 Room Air 09/23/25 03:15 Room Air 09/23/25 03:00 Room Air 09/23/25 02:45 Room Air 09/23/25 02:30 Room Air 09/23/25 02:15 Room Air 09/23/25 02:00 Room Air 09/23/25 01:46 09/23/25 01:45 Room Air 09/23/25 01:30 Room Air 09/23/25 01:15 Room Air 09/23/25 01:15 09/23/25 01:00 Room Air 09/23/25 00:51 Room Air 09/23/25 00:45 Room Air 09/23/25 00:40 09/23/25 00:30 Room Air 09/23/25 00:15 Room Air 09/23/25 00:00 Room Air 09/22/25 23:46 09/22/25 23:45 Room Air 09/22/25 23:30 Room Air 09/22/25 23:15 Room Air 09/22/25 23:03 Room Air 09/22/25 22:45 09/22/25 22:30 Room Air 09/22/25 22:15 09/22/25 22:03 09/22/25 22:00 Room Air 09/22/25 21:45 09/22/25 21:30 09/22/25 21:18 09/22/25 21:18 09/22/25 21:00 Room Air 09/22/25 21:00 Room Air 09/22/25 21:00 Room Air Laboratory Results Abnormal lab results 09/22/25 09/23/25 09/23/25 Range/Units 21:50 00:23 03:10 WBC 2.70 L (4.8-10.8) K/ul RBC 3.56 L (4.70-6.10) M/uL Hgb 11.0 L (14.0-18.0) g/dL Hct 32.7 L (42.0-52.0) % RDW Std Deviation 46.5 H (36.4-46.3) fL Plt Count 116 L (130-400) K/uL MPV 8.9 L (9.4-12.4) fL Lymph # (Auto) 0.16 L (1.20-3.40) K/uL [place] # (Auto) 0.09 L (0.11-0.59) K/uL Sodium 135 L (136-145) mmol/L Chloride (98-107) mmol/L Carbon Dioxide (21-32) mmol/L BUN 44 H (6-23) mg/dl Creatinine 2.22 H (0.6-1.4) mg/dl Glucose 161 H (70-99(Fasting)) mg/dl POC Glucose (70-99) mg/dl Lactate 2.7 H* 2.2 H* (0.4-2.0) mmol/L Calcium 8.0 L (8.6-10.3) mg/dl Magnesium 1.6 L (1.7-2.4) mg/dl Total Bilirubin 1.9 H (0.2-1.0) mg/dl Direct Bilirubin 1.4 H (0-0.2) mg/dl AST 559 H (13-39) U/L ALT 431 H (7-52) U/L Total Protein (6.0-8.3) gm/dl Albumin (3.4-5.0) gm/dl Procalcitonin 48.80 H (0-0.5) ng/ml Urine Protein 1+ H (Negative) Urine Ketones Trace H (Negative) Urine Bilirubin 1+ H (Negative) U Hyaline Cast (Auto) 3-5 H (0-2) /lpf Urine Sperm Present A (None Prsent) 09/23/25 09/23/25 Range/Units 04:14 04:36 WBC (4.8-10.8) K/ul RBC 3.36 L (4.70-6.10) M/uL Hgb 10.3 L (14.0-18.0) g/dL Hct 30.9 L (42.0-52.0) % RDW Std Deviation 47.9 H (36.4-46.3) fL Plt Count 113 L (130-400) K/uL MPV 8.9 L (9.4-12.4) fL Lymph # (Auto) (1.20-3.40) K/uL [place] # (Auto) (0.11-0.59) K/uL Sodium 134 L (136-145) mmol/L Chloride 108 H (98-107) mmol/L Carbon Dioxide 18 L (21-32) mmol/L BUN 43 H (6-23) mg/dl Creatinine 2.28 H (0.6-1.4) mg/dl Glucose 112 H (70-99(Fasting)) mg/dl POC Glucose 108 H (70-99) mg/dl Lactate (0.4-2.0) mmol/L Calcium 7.6 L (8.6-10.3) mg/dl Magnesium (1.7-2.4) mg/dl Total Bilirubin 3.1 H D (0.2-1.0) mg/dl Direct Bilirubin 2.0 H (0-0.2) mg/dl AST 363 H (13-39) U/L ALT 379 H (7-52) U/L Total Protein 5.8 L (6.0-8.3) gm/dl Albumin 3.2 L (3.4-5.0) gm/dl Procalcitonin (0-0.5) ng/ml Urine Protein (Negative) Urine Ketones (Negative) Urine Bilirubin (Negative) U Hyaline Cast (Auto) (0-2) /lpf Urine Sperm (None Prsent) Diagnostic Findings Chest X-Ray 09/22/25 21:22 Exam(s): XR CXR 1 VIEW EXAM: XR Chest, 1 View CLINICAL HISTORY: Reason for exam: Sepsis. TECHNIQUE: Frontal view of the chest. COMPARISON: No relevant prior studies available. FINDINGS: Lungs: Hypoventilation. No consolidation. Pleural space: No significant pleural effusion. No pneumothorax. Heart: No cardiomegaly or pulmonary vascular congestion. Bones/joints: No acute fracture. No dislocation. IMPRESSION: No evidence of acute cardiopulmonary disease. Electronically signed by: Kim Manuel M.D. 09/23/25 01:59 AM Abdomen/Pelvis CT 09/22/25 22:45 Exam(s): CT ABDOMEN + PELVIS Without Contrast EXAM: CT Abdomen and Pelvis Without Intravenous Contrast CLINICAL HISTORY: Reason for exam: transaminitis. OTHER: Other Notes: transaminitis TECHNIQUE: Axial computed tomography images of the abdomen and pelvis without intravenous contrast. CTDI is 27.19 mGy and DLP is 1476.24 mGy-cm. Automated exposure control was utilized for the study. A dose lowering technique was utilized adhering to the principles of ALARA. COMPARISON: No relevant prior studies available. FINDINGS: Lung bases: Unremarkable. No mass. No consolidation. ABDOMEN: Liver: Hepatomegaly. Gallbladder and bile ducts: Cholelithiasis with subtle inflammatory changes about the gallbladder neck. No intra or extrahepatic biliary ductal dilatation. Pancreas: Unremarkable. No ductal dilation. Spleen: Splenomegaly. Adrenals: Unremarkable. No mass. Kidneys and ureters: Unremarkable. No obstructing stones. No hydronephrosis. Stomach and bowel: Diverticulosis without evidence of diverticulitis. No obstruction. PELVIS: Appendix: No findings to suggest acute appendicitis. Bladder: Unremarkable. No stones. Reproductive: Unremarkable as visualized. ABDOMEN and PELVIS: Intraperitoneal space: Unremarkable. No free air. No significant fluid collection. Bones/joints: Postop changes ORIF right femoral fracture. Postop changes L 4 through S1 interbody fusion. No dislocation. Soft tissues: Unremarkable. Vasculature: Unremarkable. No abdominal aortic aneurysm. Lymph nodes: Unremarkable. No enlarged lymph nodes. IMPRESSION: Hepatomegaly Cholelithiasis with subtle inflammatory changes about the cystic duct. Findings may represent the sequelae of biliary colic.. Splenomegaly Diverticulosis without evidence of diverticulitis Electronically signed by: Otto Salas MD 09/22/25 23:55 PM Medications Administered Norepinephrine Bitartrate (Levophed/D5w) 4 mg in 250 mls @ 18.469 mls/hr IV .Q15L28T DILSHAD; Protocol Stop: 10/23/25 03:29 Last Admin: 09/23/25 03:34 Dose: 0.05 mcg/kg/min, 18.5 mls/hr Documented By: SAUMYA Co-signed By: MARY Sodium Chloride (Nss) 1,000 mls @ 125 mls/hr IV .Q8H DILSHAD Stop: 09/26/25 04:08 Last Admin: 09/23/25 04:21 Dose: 125 mls/hr Documented By: CHEN Insulin Aspart (Insulin Aspart Per Unit Charge) 0 units SC Q6 DILSHAD Stop: 10/23/25 04:08 Last Admin: 09/23/25 04:21 Dose: Not Given Documented By: CHEN Discontinued Medications Sodium Chloride (Nss) 1,000 mls @ 999 mls/hr IV .Q1H1M [facility] Stop: 09/22/25 22:30 Last Infusion: 09/22/25 23:00 Dose: Infused Documented By: Admin: 09/22/25 21:50 Dose: 999 mls/hr Documented By: MIRA Piperacillin Sod/Tazobactam Sod (Zosyn) 4.5 gm in 100 mls @ 200 mls/hr IV NOW ONE; Protocol Stop: 09/22/25 21:52 Last Infusion: 09/22/25 23:00 Dose: Infused Documented By: Admin: 09/22/25 22:17 Dose: 200 mls/hr Documented By: MIRA Vancomycin HCl 2,000 mg/ (Sodium Chloride) 540 mls @ 200 mls/hr IV NOW ONE Stop: 09/23/25 01:22 Last Infusion: 09/23/25 02:47 Dose: Infused Documented By: Admin: 09/23/25 00:05 Dose: 200 mls/hr Documented By: SAUMYA Magnesium Sulfate/Dextrose (Magnesium Sulfate / D5w) 1 gm in 100 mls @ 100 mls/hr IV NOW STA Stop: 09/22/25 23:41 Last Infusion: 09/23/25 00:05 Dose: Infused Documented By: Admin: 09/22/25 23:03 Dose: 100 mls/hr Documented By: MIRA Sodium Chloride (Nss) 500 mls @ 999 mls/hr IV .Q31M ONE Stop: 09/22/25 23:12 Last Infusion: 09/22/25 23:35 Dose: Infused Documented By: Admin: 09/22/25 23:03 Dose: 999 mls/hr Documented By: MIRA Sodium Chloride (Nss) 500 mls @ 999 mls/hr IV .Q31M ONE Stop: 09/22/25 23:30 Last Infusion: 09/23/25 00:21 Dose: Infused Documented By: Admin: 09/22/25 23:50 Dose: 999 mls/hr Documented By: SAUMYA Acetaminophen (Ofirmev) 1,000 mg in 100 mls @ 400 mls/hr IV NOW STA Stop: 09/22/25 23:30 Last Infusion: 09/23/25 00:05 Dose: Infused Documented By: Admin: 09/22/25 23:50 Dose: 400 mls/hr Documented By: SAUMYA Magnesium Sulfate/Dextrose (Magnesium Sulfate / D5w) 1 gm in 100 mls @ 50 mls/hr IV ONE ONE Stop: 09/23/25 02:18 Last Infusion: 09/23/25 02:40 Dose: Infused Documented By: Admin: 09/23/25 00:39 Dose: 50 mls/hr Documented By: SAUMYA Calcium Gluconate () 1,000 mg in 60 mls @ 240 mls/hr IV NOW STA Stop: 09/23/25 00:33 Last Infusion: 09/23/25 01:00 Dose: Infused Documented By: latricia Admin: 09/23/25 00:38 Dose: 240 mls/hr Documented By: SAUMYA Sodium Chloride (Nss) 500 mls @ 999 mls/hr IV .Q31M ONE Stop: 09/23/25 00:49 Last Infusion: 09/23/25 01:10 Dose: Infused Documented By: Admin: 09/23/25 00:39 Dose: 999 mls/hr Documented By: SAUMYA Sodium Chloride (Nss) 500 mls @ 999 mls/hr IV .Q31M ONE Stop: 09/23/25 02:59 Last Infusion: 09/23/25 03:01 Dose: Infused Documented By: Admin: 09/23/25 02:30 Dose: 999 mls/hr Documented By: SAUMYA Norepinephrine Bitartrate (Norepinephrine/D5w 4 Mg/250 Ml) Confirm Administered Dose 4 mg IV .STK-MED ONE Stop: 09/23/25 03:28 Last Admin: 09/23/25 03:30 Dose: Not Given Documented By: SAUMYA Coding Level of Care Code 73300 CRITICAL CARE 1ST 30-74M Diagnoses Septic shock A41.9; R65.21 Elevated LFTs R79.89 Hypomagnesemia E83.42 Cholelithiasis K80.20 Cholecystitis acuity: acute Cholelithiasis location: gallbladder HEMANT (acute kidney injury) N17.9 Chronic low back pain M54.50; G89.29 Chronic kidney disease N18.9 (4) Cholelithiasis Cholecystitis acuity: acute Cholelithiasis location: gallbladder
[2025-09-23 05:30] LABS: Alanine Aminotransferase 379.0 U/L (7-52); Albumin Level 3.2 gm/dl (3.4-5.0); Alkaline Phosphatase 80.0 U/L (34-104); Anion Gap 8.0 (3-11); Bilirubin,Total 3.1 mg/dl (0.2-1.0); Blood Urea Nitrogen 43.0 mg/dl (6-23); Calcium 7.6 mg/dl (8.6-10.3); Carbon Dioxide 18.0 mmol/L (21-32); Chloride 108.0 mmol/L (98-107); Creatinine Clr Calc Pharmacy 27.2 ml/min; Glucose 112.0 mg/dl (70-99(Fasting)); Magnesium 2.0 mg/dl (1.7-2.4); Potassium 4.8 mmol/L (3.5-5.1); Sodium 134.0 mmol/L (136-145); Total Protein 5.8 gm/dl (6.0-8.3)
[2025-09-23 05:32] LABS: Hematocrit (blood only) 30.9 % (42.0-52.0); Hemoglobin 10.3 g/dL (14.0-18.0); Mean Corpuscular Hemoglobin 30.7 pg (25.0-34.0); Mean Corpuscular Volume 92.0 fL (80.0-100.0); Platelet Count 113 K/uL (130-400); RDW Standard Deviation 47.9 fL (36.4-46.3); Red Blood Count 3.36 M/uL (4.70-6.10); White Blood Count 8.80 K/ul (4.8-10.8)
[2025-09-23 05:34] LABS: Immature Granulocytes # (auto) 0.05 K/uL (0.01-0.20); Immature Granulocytes % (auto) 0.6 %; Toxic Vacuolation 1+
[2025-09-23] MEDS: PIPERACILLIN/TAZOBACTAM 4.5 GM/100 ML BAG IV SCH (06:05)
[2025-09-23 06:17] LABS: INR 1.1 (0.9-1.1); Prothrombin Time 11.6 Seconds (9.0-12.0)
--- NOTE | 2025-09-23 07:18 | Gastrointestinal Consultation ---
Date of Consultation September 23, 2025 Assessment & Plan (1) Elevated LFTs: Elevated liver enzymes are in hepatocellular pattern. This would be a very atypical presentation for gallstone disease. Patient lacks any GI symptoms. CT scan findings are subtle no thickening of the gallbladder wall no extrahepatic biliary dilatation. This could all be related to extrahepatic source of sepsis causing abnormal liver enzymes. To consider infectious hepatitis and ischemic hepatitis related to history of hypotension as well. No other intra-abdominal pathology noted on CT scan. MRI MRCP imaging is critical to determine the need for endoscopic biliary intervention. Continue present ICU management and e mpiric antibiotics. Await blood culture results. (2) Septic shock: History of Present Illness Reason for Consultation: Abnormal liver enzymes Attending Physician: Ashleigh Linton MD History of Present Illness Patient presented to the emergency room with a 1 day history of malaise chills possible fevers. Found to be hypotensive in the emergency room with an elevated lactate level with a clinical picture of sepsis. I will requiring vasopressor support. Was found to have abnormal liver enzymes primarily hepatocellular. CT scan of the abdomen suggested subtle changes around the cystic duct and the presence of gallstones without abnormalities in the gallbladder wall. Intrahepatic and extrahepatic biliary ducts were not dilated. No choledocholithiasis was seen. Any abdominal pain nausea vomiting change in bowel habits. Denies any hematemesis or melena or hematochezia. No prior history of GI illnesses no history of underlying liver disease. He has chronic renal disease not on dialysis. Allergies Allergy/AdvReac Type Severity Reaction Status Date / Time cefepime Allergy Unknown SEE COMMENT Verified 08/02/25 10:47 simvastatin AdvReac Intermediate Gastrointestinal Verified 08/02/25 10:47 Upset Home Medications Medication Instructions Recorded Confirmed Type amlodipine 5 mg tablet 5 mg PO DAILY 09/23/25 09/23/25 History apple cider vinegar 600 mg capsule 450 mg PO DAILY 09/23/25 09/23/25 History atorvastatin 40 mg tablet 40 mg PO DAILY 09/23/25 09/23/25 History brimonidine 0.2 % eye drops 1 drp ophthalmic (eye) BID 09/23/25 09/23/25 History diclofenac sodium 3 % topical gel 1 applic topical TID PRN Pain 09/23/25 09/23/25 History gabapentin 100 mg capsule 100 mg PO TID 09/23/25 09/23/25 History insulin glargine 100 unit/mL 22 unit subcut DAILY 09/23/25 09/23/25 History subcutaneous solution levetiracetam 500 mg tablet 500 mg PO DAILY 09/23/25 09/23/25 History multivitamin 1 tab PO DAILY 09/23/25 09/23/25 History pioglitazone 30 mg tablet 30 mg PO DAILY 09/23/25 09/23/25 History polyethylene glycol 3350 17 gram 17 g PO DAILY PRN Constipation 09/23/25 09/23/25 History oral powder packet (Miralax) sennosides 8.6 mg capsule (senna) 8.6 mg PO HS 09/23/25 09/23/25 History sildenafil 100 mg tablet 100 mg PO UD PRN Erectile 09/23/25 09/23/25 History Dysfunction tamsulosin 0.4 mg capsule 0.4 mg PO DAILY 09/23/25 09/23/25 History travoprost 0.004 % eye drops 1 drp ophthalmic (eye) PM 09/23/25 09/23/25 History Patient History Medical History History of renal dialysis Foot osteomyelitis, right Foot osteomyelitis, left Pancytopenia PVD (peripheral vascular disease) HLD (hyperlipidemia) HTN (hypertension) T2DM (type 2 diabetes mellitus) Glaucoma Surgical History History of lumbar fusion Early 1999. L4-S1 laminectomy and fusion. 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 Family History Father Cancer Colorectal cancer Mother Old age Social History Smoking Status: Former smoker Second Hand Exposure: No; Do You Dip or Chew Tobacco: No; Hx Alcohol Use: No Hx Substance Use: No Preferred Language: Japanese Communication Ability: Impaired Communication Ability Comment: [place] Visual Impairment: No Limitations Hearing Ability: Use of Hearing Aid Massotherapist Required: No Beliefs That Will Affect Care: None Current Living Situation: Significant Other Current Living Situation Comment: lives w/ girlfriend Cynthia current occupational status: retired How many Children do You have: 2 Feels Safe at Home: Yes Safety Concerns: Feels Safe At This Time caffeine: Yes Dental Care, Regularly: Yes Do you think of yourself as: straight/heterosexual Gender Identity: Male Assistive Devices: Scooter/Electric Scooter, Walker and Wheelchair Review of Systems Review of Systems: No fever No chills No SOB No CP No Abd pain Physical Exam Physical Exam: Eyes; anicteric HENT No masses Chest clear to A Cor S1, S2 physiologic Abd: softer nontender no masses Ext no edema Results & Data Vital Signs (Past 12 Hours) Vital Signs Temp Pulse Pulse Resp BP BP Pulse Ox 09/23/25 06:00 118/57 L 09/23/25 06:00 118/57 L 09/23/25 06:00 118/57 L 09/23/25 06:00 118/57 L 09/23/25 06:00 118/57 L 09/23/25 06:00 76 13 95 09/23/25 05:45 75 12 96 09/23/25 05:45 103/73 09/23/25 05:45 103/73 09/23/25 05:45 103/73 09/23/25 05:45 103/73 09/23/25 05:45 103/73 09/23/25 05:30 110/58 L 09/23/25 05:30 110/58 L 09/23/25 05:30 110/58 L 09/23/25 05:30 110/58 L 09/23/25 05:30 110/58 L 09/23/25 05:30 110/58 L 09/23/25 05:30 110/58 L 09/23/25 05:30 110/58 L 09/23/25 05:30 110/58 L 09/23/25 05:30 77 20 97 09/23/25 05:15 76 13 94 09/23/25 05:15 108/53 L 09/23/25 05:15 108/53 L 09/23/25 05:15 108/53 L 09/23/25 05:15 108/53 L 09/23/25 05:15 108/53 L 09/23/25 05:00 77 14 90 09/23/25 05:00 104/55 L 09/23/25 05:00 104/55 L 09/23/25 05:00 104/55 L 09/23/25 05:00 104/55 L 09/23/25 05:00 104/55 L 09/23/25 04:45 76 17 92 09/23/25 04:45 100/54 L 09/23/25 04:45 100/54 L 09/23/25 04:45 100/54 L 09/23/25 04:45 100/54 L 09/23/25 04:45 100/54 L 09/23/25 04:30 96/51 L 09/23/25 04:30 96/51 L 09/23/25 04:30 96/51 L 09/23/25 04:30 96/51 L 09/23/25 04:30 96/51 L 09/23/25 04:30 78 19 93 09/23/25 04:15 99/59 L 09/23/25 04:15 99/59 L 09/23/25 04:15 99/59 L 09/23/25 04:15 99/59 L 09/23/25 04:15 99/59 L 09/23/25 04:15 78 93 09/23/25 04:14 37.0 C 81 22 105/59 L 94 09/23/25 04:10 09/23/25 04:09 09/23/25 04:06 80 24 93 09/23/25 04:04 105/59 L 09/23/25 04:04 105/59 L 09/23/25 04:04 105/59 L 09/23/25 04:04 105/59 L 09/23/25 04:04 105/59 L 09/23/25 04:03 83 14 91 09/23/25 03:45 78 23 109/72 90 09/23/25 03:44 09/23/25 03:35 76 17 89/53 L 94 09/23/25 03:30 79 18 84/53 L 93 09/23/25 03:15 79 20 73/50 L 92 09/23/25 03:00 79 22 87/52 L 94 09/23/25 02:45 81 18 91/50 L 90 09/23/25 02:30 83 15 87/51 L 90 09/23/25 02:15 82 16 82/50 L 92 09/23/25 02:00 82 18 96/52 L 92 09/23/25 01:46 91/49 L 09/23/25 01:45 82 21 98/53 L 93 09/23/25 01:30 84 20 91/49 L 93 09/23/25 01:15 86 17 80/64 L 93 09/23/25 01:15 85 09/23/25 01:00 86 21 87/43 L 93 09/23/25 00:51 85 19 86/49 L 93 09/23/25 00:45 86 16 94 09/23/25 00:40 36.8 C 09/23/25 00:30 90 20 82/47 L 93 09/23/25 00:15 91 H 24 98/53 L 94 09/23/25 00:00 94 H 24 96/56 L 92 09/22/25 23:46 88/57 L 09/22/25 23:45 98 H 16 92 09/22/25 23:30 103 H 19 94 09/22/25 23:15 105 H 20 104/62 95 09/22/25 23:03 107 H 18 102/52 L 92 09/22/25 22:45 103 H 26 H 132/46 L 95 09/22/25 22:30 106 H 26 H 97/54 L 95 09/22/25 22:15 113 H 12 104/43 L 83 L 09/22/25 22:03 110 H 35 H 98/58 L 95 09/22/25 22:00 121 H 37 H 98/58 L 94 09/22/25 21:45 110 H 25 H 09/22/25 21:30 107 H 25 H 121/67 95 09/22/25 21:18 110 H 18 98/52 L 96 09/22/25 21:18 110 H 09/22/25 21:00 93 09/22/25 21:00 93 09/22/25 21:00 37.3 C 111 H 14 98/52 L 93 Pulse Ox O2 Del Method O2 Del Method 09/23/25 06:00 09/23/25 06:00 09/23/25 06:00 09/23/25 06:00 09/23/25 06:00 09/23/25 06:00 09/23/25 05:45 09/23/25 05:45 09/23/25 05:45 09/23/25 05:45 09/23/25 05:45 09/23/25 05:45 09/23/25 05:30 09/23/25 05:30 09/23/25 05:30 09/23/25 05:30 09/23/25 05:30 09/23/25 05:30 09/23/25 05:30 09/23/25 05:30 09/23/25 05:30 09/23/25 05:30 09/23/25 05:15 09/23/25 05:15 09/23/25 05:15 09/23/25 05:15 09/23/25 05:15 09/23/25 05:15 09/23/25 05:00 09/23/25 05:00 09/23/25 05:00 09/23/25 05:00 09/23/25 05:00 09/23/25 05:00 09/23/25 04:45 09/23/25 04:45 09/23/25 04:45 09/23/25 04:45 09/23/25 04:45 09/23/25 04:45 09/23/25 04:30 09/23/25 04:30 09/23/25 04:30 09/23/25 04:30 09/23/25 04:30 09/23/25 04:30 09/23/25 04:15 09/23/25 04:15 09/23/25 04:15 09/23/25 04:15 09/23/25 04:15 09/23/25 04:15 09/23/25 04:14 Room Air 09/23/25 04:10 Room Air 09/23/25 04:09 94 Room Air 09/23/25 04:06 09/23/25 04:04 09/23/25 04:04 09/23/25 04:04 09/23/25 04:04 09/23/25 04:04 09/23/25 04:03 09/23/25 03:45 Room Air 09/23/25 03:44 Room Air 09/23/25 03:35 Room Air 09/23/25 03:30 Room Air 09/23/25 03:15 Room Air 09/23/25 03:00 Room Air 09/23/25 02:45 Room Air 09/23/25 02:30 Room Air 09/23/25 02:15 Room Air 09/23/25 02:00 Room Air 09/23/25 01:46 09/23/25 01:45 Room Air 09/23/25 01:30 Room Air 09/23/25 01:15 Room Air 09/23/25 01:15 09/23/25 01:00 Room Air 09/23/25 00:51 Room Air 09/23/25 00:45 Room Air 09/23/25 00:40 09/23/25 00:30 Room Air 09/23/25 00:15 Room Air 09/23/25 00:00 Room Air 09/22/25 23:46 09/22/25 23:45 Room Air 09/22/25 23:30 Room Air 09/22/25 23:15 Room Air 09/22/25 23:03 Room Air 09/22/25 22:45 09/22/25 22:30 Room Air 09/22/25 22:15 09/22/25 22:03 09/22/25 22:00 Room Air 09/22/25 21:45 09/22/25 21:30 09/22/25 21:18 09/22/25 21:18 09/22/25 21:00 Room Air 09/22/25 21:00 Room Air 09/22/25 21:00 Room Air Laboratory Results Laboratory Results - last 48 hr 09/22/25 09/22/25 09/23/25 21:50 22:20 00:23 WBC 2.70 L RBC 3.56 L Hgb 11.0 L Hct 32.7 L MCV 91.9 MCH 30.9 MCHC 33.6 RDW Std Deviation 46.5 H RDW Coeff of Erica 13.7 Plt Count 116 L MPV 8.9 L Immature Gran % (Auto) 0.7 Neut % (Auto) 89.0 Lymph % (Auto) 5.9 [place] % (Auto) 3.3 Eos % (Auto) 1.1 Baso % (Auto) 0.0 Neut # (Auto) 2.40 Lymph # (Auto) 0.16 L [place] # (Auto) 0.09 L Eos # (Auto) 0.03 Baso # (Auto) 0.00 Immature Gran # (Auto) 0.02 Toxic Vacuolation PT INR Sodium 135 L Potassium 4.4 Chloride 104 Carbon Dioxide 22 Anion Gap 9 BUN 44 H Creatinine 2.22 H Est Cr Clr Drug Dosing 27.5 eGFR 29.40 BUN/Creatinine Ratio 19.8 Glucose 161 H POC Glucose Lactate 2.7 H* 2.2 H* Calcium 8.0 L Magnesium 1.6 L Total Bilirubin 1.9 H Direct Bilirubin 1.4 H AST 559 H ALT 431 H Alkaline Phosphatase 91 Troponin I High Sens 16.9 Total Protein 6.1 Albumin 3.5 Lipase 39 25-OH Vitamin D Total Procalcitonin 48.80 H Urine Color Urine Appearance Urine pH Ur Specific [place] Urine Protein Urine Glucose (UA) Urine Ketones Urine Blood Urine Nitrite Urine Bilirubin Urine Urobilinogen Ur Leukocyte Esterase Urine WBC (Auto) Urine RBC (Auto) U Hyaline Cast (Auto) U Epithel Cells (Auto) Urine Bacteria (Auto) Urine Sperm Urine Comment Nasal Screen MRSA (PCR) Salicylates SARS-CoV-2 (PCR) NEGATIVE Influenza Type A (PCR) Negative Influenza Type B (PCR) Negative RSV (RT-PCR) Negative 09/23/25 09/23/25 09/23/25 03:10 04:14 04:30 WBC RBC Hgb Hct MCV MCH MCHC RDW Std Deviation RDW Coeff of Erica Plt Count MPV Immature Gran % (Auto) Neut % (Auto) Lymph % (Auto) [place] % (Auto) Eos % (Auto) Baso % (Auto) Neut # (Auto) Lymph # (Auto) [place] # (Auto) Eos # (Auto) Baso # (Auto) Immature Gran # (Auto) Toxic Vacuolation PT INR Sodium Potassium Chloride Carbon Dioxide Anion Gap BUN Creatinine Est Cr Clr Drug Dosing eGFR BUN/Creatinine Ratio Glucose POC Glucose 108 H Lactate Calcium Magnesium Total Bilirubin Direct Bilirubin AST ALT Alkaline Phosphatase Troponin I High Sens Total Protein Albumin Lipase 25-OH Vitamin D Total Procalcitonin Urine Color Dark Yellow Urine Appearance Clear Urine pH 5.0 Ur Specific [place] 1.024 Urine Protein 1+ H Urine Glucose (UA) Negative Urine Ketones Trace H Urine Blood Negative Urine Nitrite Negative Urine Bilirubin 1+ H Urine Urobilinogen Negative Ur Leukocyte Esterase Negative Urine WBC (Auto) 0-5 Urine RBC (Auto) 0-2 U Hyaline Cast (Auto) 3-5 H U Epithel Cells (Auto) 0-2 Urine Bacteria (Auto) None Seen Urine Sperm Present A Urine Comment Nasal Screen MRSA (PCR) Negative Salicylates SARS-CoV-2 (PCR) Influenza Type A (PCR) Influenza Type B (PCR) RSV (RT-PCR) 09/23/25 09/23/25 04:36 05:20 WBC 8.80 RBC 3.36 L Hgb 10.3 L Hct 30.9 L MCV 92.0 MCH 30.7 MCHC 33.3 RDW Std Deviation 47.9 H RDW Coeff of Erica 14.2 Plt Count 113 L MPV 8.9 L Immature Gran % (Auto) 0.6 Neut % (Auto) 81.4 Lymph % (Auto) 8.8 [place] % (Auto) 8.9 Eos % (Auto) 0.2 Baso % (Auto) 0.1 Neut # (Auto) 7.17 H Lymph # (Auto) 0.77 L [place] # (Auto) 0.78 H Eos # (Auto) 0.02 Baso # (Auto) 0.01 Immature Gran # (Auto) 0.05 Toxic Vacuolation 1+ PT 11.6 INR 1.1 Sodium 134 L Potassium 4.8 Chloride 108 H Carbon Dioxide 18 L Anion Gap 8 BUN 43 H Creatinine 2.28 H Est Cr Clr Drug Dosing 27.2 eGFR 28.48 BUN/Creatinine Ratio 18.9 Glucose 112 H POC Glucose Lactate 1.5 Calcium 7.6 L Magnesium 2.0 Total Bilirubin 3.1 H D Direct Bilirubin 2.0 H AST 363 H ALT 379 H Alkaline Phosphatase 80 Troponin I High Sens Total Protein 5.8 L Albumin 3.2 L Lipase 25-OH Vitamin D Total 27.5 L Procalcitonin Urine Color Urine Appearance Urine pH Ur Specific [place] Urine Protein Urine Glucose (UA) Urine Ketones Urine Blood Urine Nitrite Urine Bilirubin Urine Urobilinogen Ur Leukocyte Esterase Urine WBC (Auto) Urine RBC (Auto) U Hyaline Cast (Auto) U Epithel Cells (Auto) Urine Bacteria (Auto) Urine Sperm Urine Comment Nasal Screen MRSA (PCR) Salicylates < 3.0 L SARS-CoV-2 (PCR) Influenza Type A (PCR) Influenza Type B (PCR) RSV (RT-PCR) Diagnostic Findings Chest X-Ray 09/22/25 21:22 Exam(s): XR CXR 1 VIEW EXAM: XR Chest, 1 View CLINICAL HISTORY: Reason for exam: Sepsis. TECHNIQUE: Frontal view of the chest. COMPARISON: No relevant prior studies available. FINDINGS: Lungs: Hypoventilation. No consolidation. Pleural space: No significant pleural effusion. No pneumothorax. Heart: No cardiomegaly or pulmonary vascular congestion. Bones/joints: No acute fracture. No dislocation. IMPRESSION: No evidence of acute cardiopulmonary disease. Electronically signed by: Kim Manuel M.D. 09/23/25 01:59 AM Abdomen/Pelvis CT 09/22/25 22:45 Exam(s): CT ABDOMEN + PELVIS Without Contrast EXAM: CT Abdomen and Pelvis Without Intravenous Contrast CLINICAL HISTORY: Reason for exam: transaminitis. OTHER: Other Notes: transaminitis TECHNIQUE: Axial computed tomography images of the abdomen and pelvis without intravenous contrast. CTDI is 27.19 mGy and DLP is 1476.24 mGy-cm. Automated exposure control was utilized for the study. A dose lowering technique was utilized adhering to the principles of ALARA. COMPARISON: No relevant prior studies available. FINDINGS: Lung bases: Unremarkable. No mass. No consolidation. ABDOMEN: Liver: Hepatomegaly. Gallbladder and bile ducts: Cholelithiasis with subtle inflammatory changes about the gallbladder neck. No intra or extrahepatic biliary ductal dilatation. Pancreas: Unremarkable. No ductal dilation. Spleen: Splenomegaly. Adrenals: Unremarkable. No mass. Kidneys and ureters: Unremarkable. No obstructing stones. No hydronephrosis. Stomach and bowel: Diverticulosis without evidence of diverticulitis. No obstruction. PELVIS: Appendix: No findings to suggest acute appendicitis. Bladder: Unremarkable. No stones. Reproductive: Unremarkable as visualized. ABDOMEN and PELVIS: Intraperitoneal space: Unremarkable. No free air. No significant fluid collection. Bones/joints: Postop changes ORIF right femoral fracture. Postop changes L 4 through S1 interbody fusion. No dislocation. Soft tissues: Unremarkable. Vasculature: Unremarkable. No abdominal aortic aneurysm. Lymph nodes: Unremarkable. No enlarged lymph nodes. IMPRESSION: Hepatomegaly Cholelithiasis with subtle inflammatory changes about the cystic duct. Findings may represent the sequelae of biliary colic.. Splenomegaly Diverticulosis without evidence of diverticulitis Electronically signed by: Otto Salas MD 09/22/25 23:55 PM PG Care Time/CCT Total # of Minutes Spent Total Time Spent with Patient: Total time spent is greater than 50% in coordination of care (as documented) at patient's floor/unit and/or counseling patient: Coding Level of Care Code 83006 IN/OBS CONSULT LVL 4,60M Diagnoses Elevated LFTs R79.89 Septic shock A41.9; R65.21
[2025-09-23 07:54] LABS: Hemoglobin A1C 10.5 % (4.5-5.6)
--- NOTE | 2025-09-23 08:55 | Magnetic Resonance Report ---
MR MRCP CLINICAL HISTORY: eval for ductal dilation COMPARISON STUDY: 09/22/2025 FINDINGS: There is motion artifact. There are a few small gallstones at the gallbladder neck. There i s possible trace pericholecystic fluid versus motion. No other gross evidence of cholecystitis seen. Common bile duct measures 9 mm diameter. There are a few small filling defects distally in the common bile duct measuring up to 5 mm. IMPRESSION: A few possible small distal common bile duct stones with mild common ductal dilatation. Otherwise as described. ACT 112: Negative or not required by law. Electronically signed by: Bill Lombardi M.D. 09/23/2025 8:53 AM
--- NOTE | 2025-09-23 09:13 | Surgery Consultation ---
Date of Consultation September 23, 2025 Assessment & Plan (1) Cholelithiasis: cholelithiasis with elevated LFTs MRCP with CBD stones needs ERCP denies abdominal pain lap jason as likely outpatient History of Present Illness Attending Physician: Ashleigh Linton MD History of Present Illness This is a 80YO seen in ED with fevers and feeling unwell, denies abdominal pain. He was hypotensive in the emergency room with an elevated lactate level with a clinical picture of sepsis. He had elevated LFTs and a CT scan of the abdomen suggested subtle changes around the cystic duct and the presence of gallstones without abnormalities in the gallbladder wall. Intrahepatic and extrahepatic biliary ducts were not dilated. He denies abdominal pain nausea, vomiting, or diarrhea. Allergies Allergy/AdvReac Type Severity Reaction Status Date / Time cefepime Allergy Unknown SEE COMMENT Verified 08/02/25 10:47 simvastatin AdvReac Intermediate Gastrointestinal Verified 08/02/25 10:47 Upset Home Medications Medication Instructions Recorded Confirmed Type amlodipine 5 mg tablet 5 mg PO DAILY 09/23/25 09/23/25 History apple cider vinegar 600 mg capsule 450 mg PO DAILY 09/23/25 09/23/25 History atorvastatin 40 mg tablet 40 mg PO DAILY 09/23/25 09/23/25 History brimonidine 0.2 % eye drops 1 drp ophthalmic (eye) BID 09/23/25 09/23/25 History diclofenac sodium 3 % topical gel 1 applic topical TID PRN Pain 09/23/25 09/23/25 History gabapentin 100 mg capsule 100 mg PO TID 09/23/25 09/23/25 History insulin glargine 100 unit/mL 22 unit subcut DAILY 09/23/25 09/23/25 History subcutaneous solution levetiracetam 500 mg tablet 500 mg PO DAILY 09/23/25 09/23/25 History multivitamin 1 tab PO DAILY 09/23/25 09/23/25 History pioglitazone 30 mg tablet 30 mg PO DAILY 09/23/25 09/23/25 History polyethylene glycol 3350 17 gram 17 g PO DAILY PRN Constipation 09/23/25 09/23/25 History oral powder packet (Miralax) sennosides 8.6 mg capsule (senna) 8.6 mg PO HS 09/23/25 09/23/25 History sildenafil 100 mg tablet 100 mg PO UD PRN Erectile 09/23/25 09/23/25 History Dysfunction tamsulosin 0.4 mg capsule 0.4 mg PO DAILY 09/23/25 09/23/25 History travoprost 0.004 % eye drops 1 drp ophthalmic (eye) PM 09/23/25 09/23/25 History Patient History Medical History History of renal dialysis Foot osteomyelitis, right Foot osteomyelitis, left Pancytopenia PVD (peripheral vascular disease) HLD (hyperlipidemia) HTN (hypertension) T2DM (type 2 diabetes mellitus) Glaucoma Surgical History History of lumbar fusion Early 1999. L4-S1 laminectomy and fusion. 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 Family History Father Cancer Colorectal cancer Mother Old age Social History Smoking Status: Former smoker Second Hand Exposure: No; Do You Dip or Chew Tobacco: No; Hx Alcohol Use: No Hx Substance Use: No Preferred Language: Ukrainian Communication Ability: Impaired Communication Ability Comment: AKHIOK Visual Impairment: No Limitations Hearing Ability: Use of Hearing Aid Telecommunications Technician Required: No Beliefs That Will Affect Care: None Current Living Situation: Significant Other Current Living Situation Comment: lives w/ girlfriend Cynthia current occupational status: retired How many Children do You have: 2 Feels Safe at Home: Yes Safety Concerns: Feels Safe At This Time caffeine: Yes Dental Care, Regularly: Yes Do you think of yourself as: straight/heterosexual Gender Identity: Male Assistive Devices: Scooter/Electric Scooter, Walker and Wheelchair Review of Systems Constitutional: + fever, + malaise and + anorexia; no ch ills Eyes: no problem reported Ear, Nose, Mouth, Throat: no problem reported Respiratory: no cough and no dyspnea Cardiovascular: no chest pain Gastrointestinal: no abdominal pain, no nausea, no vomiting and no change in bowel habits Genitourinary: no dysuria Integumentary: no problem reported Neurologic: + generalized weakness; no localized wea kness Psychiatric: no behavioral changes Hematologic / Lymphatic: no easy bleeding and no easy bruising Physical Exam Constitutional: WD/WN, vitals as above Eyes: + scleral abnormality ENMT: external ear and nose normal, oropharynx normal Respiratory: normal respiratory effort, lungs clear to auscultation Cardiovascular: RRR, no murmur, no edema Gastrointestinal (Abdomen): Inspection/Auscultation: abdomen normal to inspection, + abdomen distended and normal bowel sounds Percussion/Palpation: abdomen soft; abdomen nontender, no guarding and abdomen not rigid Musculoskeletal: Head/Neck/Chest: normocephalic and head atraumatic Skin: no rashes, warm and dry Psychiatric: Orientation: alert Results & Data Vital Signs (Past 12 Hours) Vital Signs Temp Pulse Pulse Resp BP BP Pulse Ox 09/23/25 06:00 118/57 L 09/23/25 06:00 118/57 L 09/23/25 06:00 118/57 L 09/23/25 06:00 118/57 L 09/23/25 06:00 118/57 L 09/23/25 06:00 76 13 95 09/23/25 05:45 75 12 96 09/23/25 05:45 103/73 09/23/25 05:45 103/73 09/23/25 05:45 103/73 09/23/25 05:45 103/73 09/23/25 05:45 103/73 09/23/25 05:30 110/58 L 09/23/25 05:30 110/58 L 09/23/25 05:30 110/58 L 09/23/25 05:30 110/58 L 09/23/25 05:30 110/58 L 09/23/25 05:30 110/58 L 09/23/25 05:30 110/58 L 09/23/25 05:30 110/58 L 09/23/25 05:30 110/58 L 09/23/25 05:30 77 20 97 09/23/25 05:15 76 13 94 09/23/25 05:15 108/53 L 09/23/25 05:15 108/53 L 09/23/25 05:15 108/53 L 09/23/25 05:15 108/53 L 09/23/25 05:15 108/53 L 09/23/25 05:00 77 14 90 09/23/25 05:00 104/55 L 09/23/25 05:00 104/55 L 09/23/25 05:00 104/55 L 09/23/25 05:00 104/55 L 09/23/25 05:00 104/55 L 09/23/25 04:45 76 17 92 09/23/25 04:45 100/54 L 09/23/25 04:45 100/54 L 09/23/25 04:45 100/54 L 09/23/25 04:45 100/54 L 09/23/25 04:45 100/54 L 09/23/25 04:30 96/51 L 09/23/25 04:30 96/51 L 09/23/25 04:30 96/51 L 09/23/25 04:30 96/51 L 09/23/25 04:30 96/51 L 09/23/25 04:30 78 19 93 09/23/25 04:15 99/59 L 09/23/25 04:15 99/59 L 09/23/25 04:15 99/59 L 09/23/25 04:15 99/59 L 09/23/25 04:15 99/59 L 09/23/25 04:15 78 93 09/23/25 04:14 37.0 C 81 22 105/59 L 94 09/23/25 04:10 09/23/25 04:09 09/23/25 04:06 80 24 93 09/23/25 04:04 105/59 L 09/23/25 04:04 105/59 L 09/23/25 04:04 105/59 L 09/23/25 04:04 105/59 L 09/23/25 04:04 105/59 L 09/23/25 04:03 83 14 91 09/23/25 03:45 78 23 109/72 90 09/23/25 03:44 09/23/25 03:35 76 17 89/53 L 94 09/23/25 03:30 79 18 84/53 L 93 09/23/25 03:15 79 20 73/50 L 92 09/23/25 03:00 79 22 87/52 L 94 09/23/25 02:45 81 18 91/50 L 90 09/23/25 02:30 83 15 87/51 L 90 09/23/25 02:15 82 16 82/50 L 92 09/23/25 02:00 82 18 96/52 L 92 09/23/25 01:46 91/49 L 09/23/25 01:45 82 21 98/53 L 93 09/23/25 01:30 84 20 91/49 L 93 09/23/25 01:15 86 17 80/64 L 93 09/23/25 01:15 85 09/23/25 01:00 86 21 87/43 L 93 09/23/25 00:51 85 19 86/49 L 93 09/23/25 00:45 86 16 94 09/23/25 00:40 36.8 C 09/23/25 00:30 90 20 82/47 L 93 09/23/25 00:15 91 H 24 98/53 L 94 09/23/25 00:00 94 H 24 96/56 L 92 09/22/25 23:46 88/57 L 09/22/25 23:45 98 H 16 92 09/22/25 23:30 103 H 19 94 09/22/25 23:15 105 H 20 104/62 95 09/22/25 23:03 107 H 18 102/52 L 92 09/22/25 22:45 103 H 26 H 132/46 L 95 09/22/25 22:30 106 H 26 H 97/54 L 95 09/22/25 22:15 113 H 12 104/43 L 83 L 09/22/25 22:03 110 H 35 H 98/58 L 95 09/22/25 22:00 121 H 37 H 98/58 L 94 09/22/25 21:45 110 H 25 H 09/22/25 21:30 107 H 25 H 121/67 95 09/22/25 21:18 110 H 18 98/52 L 96 09/22/25 21:18 110 H Pulse Ox O2 Del Method O2 Del Method 09/23/25 06:00 09/23/25 06:00 09/23/25 06:00 09/23/25 06:00 09/23/25 06:00 09/23/25 06:00 09/23/25 05:45 09/23/25 05:45 09/23/25 05:45 09/23/25 05:45 09/23/25 05:45 09/23/25 05:45 09/23/25 05:30 09/23/25 05:30 09/23/25 05:30 09/23/25 05:30 09/23/25 05:30 09/23/25 05:30 09/23/25 05:30 09/23/25 05:30 09/23/25 05:30 09/23/25 05:30 09/23/25 05:15 09/23/25 05:15 09/23/25 05:15 09/23/25 05:15 09/23/25 05:15 09/23/25 05:15 09/23/25 05:00 09/23/25 05:00 09/23/25 05:00 09/23/25 05:00 09/23/25 05:00 09/23/25 05:00 09/23/25 04:45 09/23/25 04:45 09/23/25 04:45 09/23/25 04:45 09/23/25 04:45 09/23/25 04:45 09/23/25 04:30 09/23/25 04:30 09/23/25 04:30 09/23/25 04:30 09/23/25 04:30 09/23/25 04:30 09/23/25 04:15 09/23/25 04:15 09/23/25 04:15 09/23/25 04:15 09/23/25 04:15 09/23/25 04:15 09/23/25 04:14 Room Air 09/23/25 04:10 Room Air 09/23/25 04:09 94 Room Air 09/23/25 04:06 09/23/25 04:04 09/23/25 04:04 09/23/25 04:04 09/23/25 04:04 09/23/25 04:04 09/23/25 04:03 09/23/25 03:45 Room Air 09/23/25 03:44 Room Air 09/23/25 03:35 Room Air 09/23/25 03:30 Room Air 09/23/25 03:15 Room Air 09/23/25 03:00 Room Air 09/23/25 02:45 Room Air 09/23/25 02:30 Room Air 09/23/25 02:15 Room Air 09/23/25 02:00 Room Air 09/23/25 01:46 09/23/25 01:45 Room Air 09/23/25 01:30 Room Air 09/23/25 01:15 Room Air 09/23/25 01:15 09/23/25 01:00 Room Air 09/23/25 00:51 Room Air 09/23/25 00:45 Room Air 09/23/25 00:40 09/23/25 00:30 Room Air 09/23/25 00:15 Room Air 09/23/25 00:00 Room Air 09/22/25 23:46 09/22/25 23:45 Room Air 09/22/25 23:30 Room Air 09/22/25 23:15 Room Air 09/22/25 23:03 Room Air 09/22/25 22:45 09/22/25 22:30 Room Air 09/22/25 22:15 09/22/25 22:03 09/22/25 22:00 Room Air 09/22/25 21:45 09/22/25 21:30 09/22/25 21:18 09/22/25 21:18 Diagnostic Findings MR MRCP CLINICAL HISTORY: eval for ductal dilation COMPARISON STUDY: 09/22/2025 FINDINGS: There is motion artifact. There are a few small gallstones at the gallbladder neck. There is possible trace pericholecystic fluid versus motion. No other gross evidence of cholecystitis seen. Common bile duct measures 9 mm diameter. There are a few small filling defects distally in the common bile duct measuring up to 5 mm. IMPRESSION: A few possible small distal common bile duct stones with mild common ductal dilatation. Otherwise as described. (1) Cholelithiasis Cholecystitis acuity: acute Cholelithiasis location: gallbladder
--- NOTE | 2025-09-23 10:00 | Anesthesiology Consultation ---
Date of Service September 23, 2025 Assessment & Plan (1) Encounter for pre-operative examination: Chart Review Chart Review: Acceptable Risk for Surgery and Patient NOT seen in Pre Admission Testing Consults Requested none History Surgery Operation Date: 09/23/25 12:00 Proposed Procedures p Endoscopic Retrograde Cholangiopancreatogram - Joaquin Braga MD Height/Weight Height: 5 ft 2 in Weight: 101.3 kg Allergies Allergy/AdvReac Type Severity Reaction Status Date / Time cefepime Allergy Unknown SEE COMMENT Verified 08/02/25 10:47 simvastatin AdvReac Intermediate Gastrointestinal Verified 08/02/25 10:47 Upset Medications Home Medications Medication Instructions Recorded Confirmed Last Taken amlodipine 5 mg tablet 5 mg PO DAILY 09/23/25 09/23/25 Unknown apple cider vinegar 600 mg capsule 450 mg PO DAILY 09/23/25 09/23/25 Unknown atorvastatin 40 mg tablet 40 mg PO DAILY 09/23/25 09/23/25 Unknown brimonidine 0.2 % eye drops 1 drp ophthalmic (eye) BID 09/23/25 09/23/25 Unknown diclofenac sodium 3 % topical gel 1 applic topical TID PRN Pain 09/23/25 09/23/25 Unknown gabapentin 100 mg capsule 100 mg PO TID 09/23/25 09/23/25 Unknown insulin glargine 100 unit/mL 22 unit subcut DAILY 09/23/25 09/23/25 Unknown subcutaneous solution levetiracetam 500 mg tablet 500 mg PO DAILY 09/23/25 09/23/25 Unknown multivitamin 1 tab PO DAILY 09/23/25 09/23/25 Unknown pioglitazone 30 mg tablet 30 mg PO DAILY 09/23/25 09/23/25 Unknown polyethylene glycol 3350 17 gram 17 g PO DAILY PRN Constipation 09/23/25 09/23/25 Unknown oral powder packet (Miralax) sennosides 8.6 mg capsule (senna) 8.6 mg PO HS 09/23/25 09/23/25 Unknown sildenafil 100 mg tablet 100 mg PO UD PRN Erectile 09/23/25 09/23/25 Unknown Dysfunction tamsulosin 0.4 mg capsule 0.4 mg PO DAILY 09/23/25 09/23/25 Unknown travoprost 0.004 % eye drops 1 drp ophthalmic (eye) PM 09/23/25 09/23/25 Unknown Active Medications Generic Name Dose Route Start Last Admin Trade Name Delmerq PRN Reason Stop Dose Admin Norepinephrine Bitartrate 4 mg in 250 mls @ 0 mls/hr 09/23/25 03:30 09/23/25 06:15 Levophed/D5w IV 10/23/25 03:29 0 mcg/kg/min .Q0M DILSHAD 0 mls/hr Titration Protocol 0 MCG/KG/MIN Piperacillin Sod/Tazobactam Sod 4.5 gm in 100 mls @ 25 mls/hr 09/23/25 05:00 09/23/25 06:05 Zosyn IV 10/03/25 04:59 25 mls/hr Q8H DILSHAD Administration Protocol Insulin Aspart 0 units 09/23/25 04:09 09/23/25 04:21 Insulin Aspart Per Unit Charge SC 10/23/25 04:08 Not Given Q6 DILSHAD Past Medical History Medical History (Updated 09/23/25 @ 10:02 by Norbert Reina MD) Encounter for pre-operative examination Chronic kidney disease HEMANT (acute kidney injury) Hypomagnesemia Septic shock Elevated LFTs History of renal dialysis Foot osteomyelitis, right Foot osteomyelitis, left Pancytopenia PVD (peripheral vascular disease) HLD (hyperlipidemia) HTN (hypertension) T2DM (type 2 diabetes mellitus) Glaucoma Patient with history of RF in 2022 requiring dialysis for 2 years via TLD- stopped dialysis in Spring 2024 Past Family History Family History Father Cancer Colorectal cancer Mother Old age Past Surgical History Surgical History History of lumbar fusion Early 1999. L4-S1 laminectomy and fusion. 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 Social History Smoking Status: Former smoker Do You Dip or Chew Tobacco: No Hx Alcohol Use: No Hx Substance Use: No substance use type: does not use Physical Exam Vital Signs Last Vital Signs Temp 37.0 C 09/23/25 04:14 Pulse 76 09/23/25 09:15 Resp 16 09/23/25 09:15 BP 97/57 L 09/23/25 09:15 Pulse Ox 93 09/23/25 09:15 O2 Del Method Room Air 09/23/25 09:27 Testing Laboratory Results 09/23/25 04:36 09/23/25 04:36 PT 11.6 Seconds (9.0-12.0) 09/23/25 05:20 INR 1.1 (0.9-1.1) 09/23/25 05:20 Hemoglobin A1c 10.5 % (4.5-5.6) H 09/23/25 04:36 Urine Color Dark Yellow 09/23/25 03:10 Urine Appearance Clear (Clear) 09/23/25 03:10 Urine pH 5.0 (4.5-7.5) 09/23/25 03:10 Ur Specific Nixa 1.024 (1.000-1.030) 09/23/25 03:10 Urine Protein 1+ (Negative) H 09/23/25 03:10 Urine Glucose (UA) Negative (Negative) 09/23/25 03:10 Urine Ketones Trace (Negative) H 09/23/25 03:10 Urine Nitrite Negative (Negative) 09/23/25 03:10 Ur Leukocyte Esterase Negative (Negative) 09/23/25 03:10 Urine WBC (Auto) 0-5 /hpf (0-5) 09/23/25 03:10 Urine RBC (Auto) 0-2 /hpf (0-2) 09/23/25 03:10 U Hyaline Cast (Auto) 3-5 /lpf (0-2) H 09/23/25 03:10 U Epithel Cells (Auto) 0-2 /hpf (0-2) 09/23/25 03:10 Urine Bacteria (Auto) None Seen (None Seen) 09/23/25 03:10 09/23/25 04:14 POC Glucose 108 H Electrocardiogram Date: 09/22/25 Findings: + RBBB and + ST @ Chest X-Ray Date: 09/22/25 IMPRESSION: No evidence of acute cardiopulmonary disease.
[2025-09-23] MEDS ORDERED: PROPOFOL IV EMULSION 10 MG/ML 20 ML VIAL IV ONE (10:02)
[2025-09-23] MEDS ORDERED: ROCURONIUM BROMIDE 10 MG/ML 5 ML VIAL IV ONE (10:02)
[2025-09-23] MEDS ORDERED: LIDOCAINE 2% 2 ML VIAL/AMP(20MG/ML) INFIL ONE (10:02)
[2025-09-23] MEDS ORDERED: ONDANSETRON INJ 2 MG/ML 2 ML VIAL ONE (10:02)
[2025-09-23] MEDS ORDERED: SUGAMMADEX SODIUM 200 MG/2 ML VIAL IV ONE (10:04)
[2025-09-23] MEDS: GABAPENTIN 100 MG CAP PO SCH (10:05)
[2025-09-23] MEDS: MULTIVITAMIN TAB PO SCH (10:06)
[2025-09-23 10:26] LABS: A calco-baum cmplx NotReported Not Detected (NotDetected); Bact fragilis Not Reported Not Detected (NotDetected); Blood Culture Id Panel See PCR Comment (NotDetected); C auris Not Reported Not Detected (NotDetected); CTX-M Resistant Gene DETECTED (NotDetected); Calbicans Not Reported Not Detected (NotDetected); Candida glabrata Not Reported Not Detected (NotDetected); Candida krusei Not Reported Not Detected (NotDetected); Cneoformans/gatti Not Reported Not Detected (NotDetected); Cparapsilosis Not Reported Not Detected (NotDetected); Ctropicalis Not Reported Not Detected (NotDetected); E cloacae compx Not Reported Not Detected (NotDetected); Efaecalis Not Reported Not Detected (NotDetected); Efaecium Not Reported Not Detected (NotDetected); Enterobacterales DETECTED (NotDetected); Enterobacterales Not Reported DETECTED (NotDetected); Escherichia coli Not Reported DETECTED (NotDetected); H influenzae Not Reported Not Detected (NotDetected); IMP Resistant Gene Not Detected (NotDetected); K aerogenes Not Reported Not Detected (NotDetected); KPC Resistant Gene Not Detected (NotDetected); Koxytoca Not Reported Not Detected (NotDetected); Kpneumoniae grp Not Reported Not Detected (NotDetected); Lmonocyt Not Reported Not Detected (NotDetected); N meningitidis Not Reported Not Detected (NotDetected); NDM Resistant Gene Not Detected (NotDetected); OXA 48 Like Resistant Gene Not Detected (NotDetected); P aeruginosa Not Reported Not Detected (NotDetected); Proteus spp Not Reported Not Detected (NotDetected); Salmonella spp Not Reported Not Detected (NotDetected); Staph lugdunensis Not Reported Not Detected (NotDetected); Staph spp. Not Reported Not Detected (NotDetected); Staphaureus Not Reported Not Detected (NotDetected); Staphepi Not Reported Not Detected (NotDetected); Stenmaltophilia Not Reported Not Detected (NotDetected); Strep agal(GrpB) Not Reported Not Detected (NotDetected); Strep pneum Not Reported Not Detected (NotDetected); Strep pyog (GrpA) Not Reported Not Detected (NotDetected); Strep spp Not Reported Not Detected (NotDetected); VIM Resistant Gene Not Detected (NotDetected); mcr-1 Colistin Resistant Gene Not Detected (NotDetected)
[2025-09-23] MEDS ORDERED: VASOPRESSIN 20 UNIT/ML VIAL ONE (10:43)
[2025-09-23] MEDS ORDERED: ATROPINE SULFATE 0.1 MG/ML 10ML SYR IV PRN (10:48)
[2025-09-23] MEDS ORDERED: KETAMINE HCL 10MG/ML SYR ONE (10:48)
[2025-09-23] MEDS ORDERED: ALBUTEROL HFA 8 GM INHALER INH ONE (10:55)
[2025-09-23 11:16] LABS: Creatine Kinase 128.0 U/L (30-223)
--- NOTE | 2025-09-23 11:17 | Pharmacy Report ---
Pharmacy PK ABX Note - Date of Service September 23, 2025 - Assessment and Plan Assessment 80 year old M receiving vancomycin and pip/tazo for treatment of septic shock from possible GI source. * Patient received 1 loading dose of vancomycin this AM. Completed 2 doses of Zosyn. * Vancomycin was discontinued after discussion with metal tile setter at ICU rounds. Following rounds, patient's blood cultures popped positive for ESBL E. coli. After discussion with metal tile setter, will transition from Zosyn to Ertapenem. Plan Vancomycin & Zosyn * Discontinue Ertapenem * Start 500 mg IV every 24 hours - appropriately dosed for CrCl < 30 mL/min Pharmacy will continue to follow and will adjust dose/frequency as necessary. Thank you. Pharmacy has transitioned to AUC monitoring for vancomycin. AUC/STEVE is the preferred PK/PD target and is associated with decreased risk of nephrotoxicity compared to traditional trough targets.
--- NOTE | 2025-09-23 11:19 | GI REPORT ---
[facility] Patient: YODIT NOVAK : 1945 Sex at : Male Age: 80 Years Procedure: ERCP Date: 09/23/2025 Attending Physician: Joaquin Braga MD Referring MD: Referred Self; Ashleigh Linton Md Indications: - Bile duct stone(s) - Elevated liver enzymes - Abnormal MRCP Medications: - General Anesthesia Complications: - No immediate complications. Estimated Blood Loss: - Estimated blood loss was minimal. Procedure: - Prior to the procedure, a History and Physical was performed, and patient medications, allergies and sensitivities were reviewed. The patient's tolerance of previous anesthesia was reviewed. - The risks and benefits of the procedure and the sedation options and risks were discussed with the patient. All questions were answered and informed consent was obtained. - Prophylactic Antibiotics: The patient requires prophylactic antibiotics as clinically indicated based on published guidelines for the planned ERCP. The patient received antibiotic therapy before the procedure. - General anesthesia under the supervision of a FIRE AND SAFETY HELPER was determined to be medically necessary for this procedure based on severe comorbidity (greater than ASA Grade II). - The ercp scope was introduced through the mouth and advanced to the duodenum and used to inject contrast into the bile duct. - The ERCP was accomplished without difficulty. - The patient tolerated the procedure well. Findings: - The pancreatic duct was not cannulated. The bile duct was deeply cannulated with the short-nosed traction sphincterotome. Contrast was injected. I personally interpreted the bile duct images. Image quality was adequate. The lower third of the main duct contained filling defect(s) thought to be a stone. - An 8 mm biliary sphincterotomy was made with a short nose sphincterotome using ERBE electrocautery. There was no post-sphincterotomy bleeding. - The biliary tree was swept with an 8.5-12- 15 mm balloon starting at the bifurcation. Two stones were removed. No stones remained. Impression: - A filling defect consistent with a stone was seen on the cholangiogram. - Choledocholithiasis was found. Complete removal was accomplished by biliary sphincterotomy and balloon extraction. Recommendation: - Continue present medications. - Watch for pancreatitis, bleeding, perforation, and cholangitis. - Clear liquid diet. Procedure Code(s): - 49842, Endoscopic retrograde cholangiopancreatography (ERCP); with removal of calculi/debris from biliary/pancreatic duct(s) - 98030, Endoscopic retrograde cholangiopancreatography (ERCP); with sphincterotomy/papillotomy - 13349, Endoscopic catheterization of the biliary ductal system, radiological supervision and interpretation Diagnosis Code(s): - R74.8, Abnormal levels of other serum enzymes - K80.50, Calculus of bile duct without cholangitis or cholecystitis without obstruction - R93.2, Abnormal findings on diagnostic imaging of liver and biliary tract CPT(R) - 2024 copyright [employer]. All Rights Reserved. The CPT codes, CCI edits and ICD codes generated are intended as suggestions and were generated based on input data. These codes are preliminary and upon manager primary review may be revised to meet current compliance and payer requirements. The provider is responsible for the final determination of appropriate codes, and modifiers. Joaquin Braga MD This document has been electronically signed. Note Initiated:09/23/2025 Note Completed:09/23/2025 11:18 AM [email or web address]\[id number]
--- NOTE | 2025-09-23 11:28 | Pharmacy Report ---
Pharmacy Glycemic Short Note 2 - Date of Service September 23, 2025 - Glycemic Short BSG Results (Last 24 hours): 09/22/25 09/23/25 09/23/25 21:50 04:14 04:36 Glucose 161 H 112 H POC Glucose 108 H OUTPATIENT ANTIDIABETIC REGIMEN: * Pioglitazone 30 mg PO daily * Lantus 22 units SC daily HbA1c: * 10.5% (09/23/25) ASSESSMENT: * 80 yo M admitted on 09/22/25 secondary to septic shock from presumable GI source. Pharmacy has been consulted to assist with inpatient glycemic management. Patient is a Type 2 diabetic as an outpatient. Please refer to outpatient regimen and most recent HbA1c above. Note that patient's HbA1c has increased significantly since previous level of 5.9% in January 2025. * Patient is critically ill requiring vasopressor support. Currently NPO status except sips/chips/meds. ESBL E. coli bacteremia also present, on Invanz. * Originally ordered basal for this AM, low dose, less than half of home dose. Field Crew Chief would like to hold for now given NPO status and pressor requirement. Will reassess basal needs throughout the evening. * Novolog was started based on weight/stress of 1-2. Has not required any insu lucio yet as AM BSG was 108 mg/dL today. Plan to empirically tighten Novolog to reflect full weight/stress of 2 for now given no basal. Continue to follow throughout the day. Tightened goal range this AM as well. PLAN FOR INPATIENT GLYCEMIC CONTROL: * Hold outpatient oral diabetes medications * Basal insulin * Holding for now * Bolus insulin * NovoLog per scale ACHS or Q6hrs while NPO * Goal Range: Low 120 mg/dL - High 150 mg/dL * Correction Factor: 25 mg/dL/unit * Nutritional / Prandial insulin per carb ratio of 1 unit per 8 grams CHO consumed
[2025-09-23] MEDS: LACTATED RINGER'S 1,000 ML IV SCH (12:09)
[2025-09-23] MEDS: ERTAPENEM 500MG 500 MG/5 ML SYR IV SCH (12:09)
[2025-09-23] MEDS: BRIMONIDINE TARTRATE 0.2% 5ML OP SCH (12:33)
[2025-09-23] MEDS: levETIRAcetam 500 MG TAB PO SCH (12:33)
[2025-09-23] MEDS: LANTUS PER UNIT CHARGE SQ SCH (12:38)
--- NOTE | 2025-09-23 12:58 | Anesthesiology Progress Note ---
Date of Service September 23, 2025 Anesthesia Post Procedure Vital Signs Vital Signs: Temp Pulse Pulse Resp BP BP Pulse Ox 09/23/25 09:27 09/23/25 09:15 97/57 L 09/23/25 09:15 76 16 93 09/23/25 09:00 117/64 09/23/25 09:00 75 13 92 09/23/25 08:53 94/55 L 09/23/25 08:51 76 11 L 92 09/23/25 07:45 94/58 L 09/23/25 07:45 77 17 91 09/23/25 07:30 105/61 09/23/25 07:30 74 15 94 09/23/25 07:15 97/56 L 09/23/25 07:15 80 19 94 09/23/25 06:00 118/57 L 09/23/25 06:00 118/57 L 09/23/25 06:00 118/57 L 09/23/25 06:00 118/57 L 09/23/25 06:00 118/57 L 09/23/25 06:00 76 13 95 09/23/25 05:45 75 12 96 09/23/25 05:45 103/73 09/23/25 05:45 103/73 09/23/25 05:45 103/73 09/23/25 05:45 103/73 09/23/25 05:45 103/73 09/23/25 05:30 110/58 L 09/23/25 05:30 110/58 L 09/23/25 05:30 110/58 L 09/23/25 05:30 110/58 L 09/23/25 05:30 110/58 L 09/23/25 05:30 110/58 L 09/23/25 05:30 110/58 L 09/23/25 05:30 110/58 L 09/23/25 05:30 110/58 L 09/23/25 05:30 77 20 97 09/23/25 05:15 76 13 94 09/23/25 05:15 108/53 L 09/23/25 05:15 108/53 L 09/23/25 05:15 108/53 L 09/23/25 05:15 108/53 L 09/23/25 05:15 108/53 L 09/23/25 05:00 77 14 90 09/23/25 05:00 104/55 L 09/23/25 05:00 104/55 L 09/23/25 05:00 104/55 L 09/23/25 05:00 104/55 L 09/23/25 05:00 104/55 L 09/23/25 04:45 76 17 92 09/23/25 04:45 100/54 L 09/23/25 04:45 100/54 L 09/23/25 04:45 100/54 L 09/23/25 04:45 100/54 L 09/23/25 04:45 100/54 L 09/23/25 04:30 96/51 L 09/23/25 04:30 96/51 L 09/23/25 04:30 96/51 L 09/23/25 04:30 96/51 L 09/23/25 04:30 96/51 L 09/23/25 04:30 78 19 93 09/23/25 04:15 99/59 L 09/23/25 04:15 99/59 L 09/23/25 04:15 99/59 L 09/23/25 04:15 99/59 L 09/23/25 04:15 99/59 L 09/23/25 04:15 78 93 09/23/25 04:14 37.0 C 81 22 105/59 L 94 09/23/25 04:10 09/23/25 04:09 09/23/25 04:06 80 24 93 09/23/25 04:04 105/59 L 09/23/25 04:04 105/59 L 09/23/25 04:04 105/59 L 09/23/25 04:04 105/59 L 09/23/25 04:04 105/59 L 09/23/25 04:03 83 14 91 09/23/25 03:45 78 23 109/72 90 09/23/25 03:44 09/23/25 03:35 76 17 89/53 L 94 09/23/25 03:30 79 18 84/53 L 93 09/23/25 03:15 79 20 73/50 L 92 09/23/25 03:00 79 22 87/52 L 94 09/23/25 02:45 81 18 91/50 L 90 09/23/25 02:30 83 15 87/51 L 90 09/23/25 02:15 82 16 82/50 L 92 09/23/25 02:00 82 18 96/52 L 92 09/23/25 01:46 91/49 L 09/23/25 01:45 82 21 98/53 L 93 09/23/25 01:30 84 20 91/49 L 93 09/23/25 01:15 86 17 80/64 L 93 09/23/25 01:15 85 09/23/25 01:00 86 21 87/43 L 93 09/23/25 00:51 85 19 86/49 L 93 09/23/25 00:45 86 16 94 09/23/25 00:40 36.8 C 09/23/25 00:30 90 20 82/47 L 93 09/23/25 00:15 91 H 24 98/53 L 94 09/23/25 00:00 94 H 24 96/56 L 92 09/22/25 23:46 88/57 L 09/22/25 23:45 98 H 16 92 09/22/25 23:30 103 H 19 94 09/22/25 23:15 105 H 20 104/62 95 09/22/25 23:03 107 H 18 102/52 L 92 09/22/25 22:45 103 H 26 H 132/46 L 95 09/22/25 22:30 106 H 26 H 97/54 L 95 09/22/25 22:15 113 H 12 104/43 L 83 L 09/22/25 22:03 110 H 35 H 98/58 L 95 09/22/25 22:00 121 H 37 H 98/58 L 94 09/22/25 21:45 110 H 25 H 09/22/25 21:30 107 H 25 H 121/67 95 09/22/25 21:18 110 H 18 98/52 L 96 09/22/25 21:18 110 H 09/22/25 21:00 93 09/22/25 21:00 93 09/22/25 21:00 37.3 C 111 H 14 98/52 L 93 Pulse Ox O2 Del Method O2 Del Method 09/23/25 09:27 Room Air 09/23/25 09:15 09/23/25 09:15 09/23/25 09:00 09/23/25 09:00 09/23/25 08:53 09/23/25 08:51 09/23/25 07:45 09/23/25 07:45 09/23/25 07:30 09/23/25 07:30 09/23/25 07:15 09/23/25 07:15 09/23/25 06:00 09/23/25 06:00 09/23/25 06:00 09/23/25 06:00 09/23/25 06:00 09/23/25 06:00 09/23/25 05:45 09/23/25 05:45 09/23/25 05:45 09/23/25 05:45 09/23/25 05:45 09/23/25 05:45 09/23/25 05:30 09/23/25 05:30 09/23/25 05:30 09/23/25 05:30 09/23/25 05:30 09/23/25 05:30 09/23/25 05:30 09/23/25 05:30 09/23/25 05:30 09/23/25 05:30 09/23/25 05:15 09/23/25 05:15 09/23/25 05:15 09/23/25 05:15 09/23/25 05:15 09/23/25 05:15 09/23/25 05:00 09/23/25 05:00 09/23/25 05:00 09/23/25 05:00 09/23/25 05:00 09/23/25 05:00 09/23/25 04:45 09/23/25 04:45 09/23/25 04:45 09/23/25 04:45 09/23/25 04:45 09/23/25 04:45 09/23/25 04:30 09/23/25 04:30 09/23/25 04:30 09/23/25 04:30 09/23/25 04:30 09/23/25 04:30 09/23/25 04:15 09/23/25 04:15 09/23/25 04:15 09/23/25 04:15 09/23/25 04:15 09/23/25 04:15 09/23/25 04:14 Room Air 09/23/25 04:10 Room Air 09/23/25 04:09 94 Room Air 09/23/25 04:06 09/23/25 04:04 09/23/25 04:04 09/23/25 04:04 09/23/25 04:04 09/23/25 04:04 09/23/25 04:03 09/23/25 03:45 Room Air 09/23/25 03:44 Room Air 09/23/25 03:35 Room Air 09/23/25 03:30 Room Air 09/23/25 03:15 Room Air 09/23/25 03:00 Room Air 09/23/25 02:45 Room Air 09/23/25 02:30 Room Air 09/23/25 02:15 Room Air 09/23/25 02:00 Room Air 09/23/25 01:46 09/23/25 01:45 Room Air 09/23/25 01:30 Room Air 09/23/25 01:15 Room Air 09/23/25 01:15 09/23/25 01:00 Room Air 09/23/25 00:51 Room Air 09/23/25 00:45 Room Air 09/23/25 00:40 09/23/25 00:30 Room Air 09/23/25 00:15 Room Air 09/23/25 00:00 Room Air 09/22/25 23:46 09/22/25 23:45 Room Air 09/22/25 23:30 Room Air 09/22/25 23:15 Room Air 09/22/25 23:03 Room Air 09/22/25 22:45 09/22/25 22:30 Room Air 09/22/25 22:15 09/22/25 22:03 09/22/25 22:00 Room Air 09/22/25 21:45 09/22/25 21:30 09/22/25 21:18 09/22/25 21:18 09/22/25 21:00 Room Air 09/22/25 21:00 Room Air 09/22/25 21:00 Room Air Transfer of Care Handoff Completed per policy Notes Mental Status: alert / awake / arousable and participated in evaluation Patient Amnestic to Procedure: Yes Nausea / Vomiting: adequately controlled Pain: adequately controlled Airway Patency, RR, SpO2: stable & adequate BP & HR: stable & adequate Hydration State: stable & adequate Anesthetic Complications: no major complications apparent and Pt Satisfied with anesthetic care
--- NOTE | 2025-09-23 13:41 | Electrocardiogram Report ---
Test Reason : Blood Pressure : */* mmHG Vent. Rate : 109 BPM Atrial Rate : 109 BPM P-R Int : 160 ms QRS Dur : 128 ms QT Int : 332 ms P-R-T Axes : -2 24 10 degrees QTcB Int : 447 ms Sinus tachycardia Right bundle branch block Abnormal ECG When compared with ECG of 02-Apr-2023 13:19, Right bundle branch block is now Present Confirmed by Sebastián Gunderson ([id number]) on 09/23/2025 1:41:07 PM Referred By: REFERRED SELF Confirmed By: Sebastián Gunderson
--- NOTE | 2025-09-23 13:45 | Electrocardiogram Report ---
Test Reason : Blood Pressure : */* mmHG Vent. Rate : 77 BPM Atrial Rate : 77 BPM P-R Int : 200 ms QRS Dur : 96 ms QT Int : 374 ms P-R-T Axes : 42 39 46 degrees QTcB Int : 423 ms Normal sinus rhythm 1st degree AV block When compared with ECG of 22-Sep-2025 21:20, (unconfirmed) Right bundle branch block is no longer Present Confirmed by Sebastián Gunderson ([id number] on 09/23/2025 1:45:08 PM Referred By: REFERRED SELF Confirmed By: Sebastián Gunderson
--- NOTE | 2025-09-23 13:58 | Hospitalist Progress Note ---
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 Possible developing cholangitis Septic shock POA Bacteremia Transaminitis Patient reported epigastric discomfort prior to arrival, had fever and elevated LFT at presentation. At presentation: WBC 2.7 K, respiratory rate and heart rate elevated. Pro-Jam and lactic acid elevated. LFT elevated Patient needed pressor support at admission due to hypotension despite IVF resuscitation, was admitted in ICU. Admitting blood culture positive for gram-negative baseline Admitting CTAP with cholelithiasis with subtle inflammatory changes about the cystic duct MRCP with CBD stone with mild common ductal dilatation. Status post ERCP 09/23: Choledocholithiasis was found, complete removal was accomplished by biliary sphincterotomy and balloon extraction. Trend LFT, Expected downtrend. Continue with Ertapenem 09/23, follow culture and sensitivity. f/u Gen Sx as OP for possible lap jason Hypomagnesemia and hypocalcemia: Monitor and replete. 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 Admitting creatinine of 2.2, likely prerenal in the setting of septic shock. Status post IV fluid and pressor support. Avoid nephrotoxic, labs in AM. Continue with IV fluid today. If worsening consider nephrology consult. History of dialysis in the past. Vitamin D deficiency: Vitamin D level low. 27.5. Start vitamin D supplement, repeat vitamin D level in 3 months. Pancytopenia: Follows hematology and oncology in [place]. Maintain prior follow-up. Other chronic medical conditions: Continue with/resume home meds as and when able. Diabetes: Hold pioglitazone, sliding scale insulin while inpatient. PPx: Holding Flomax now due to hypotension, currently on Harris. Resume Flomax once hemodynamically stable. Hyperlipidemia: Holding statin due to elevated LFTs for now, resume once LFT normalized. Glaucoma: Continue home eyedrops Seizure: Continue home Keppra Hypertension: Hold for now given hypotension, consider resuming when stable. DVT prophylaxis: Heparin subcu Disposition: PCU/telemetry CODE STATUS: Full code Admission and Anticipated Discharge Date Admission Date: September 23, 2025 Subjective Patient was seen and examined at bedside. Patient was lying in bed, on room air, NAD. Patient is status post ERCP 09/23. Patient denies abdominal pain, reports feeling better, still looks lethargic and ill. Discussed with hand stapler, patient has been off of pressors since machine fitter, okay for downgrade. Physical Exam Physical Exam: General- Not in distress Head- atraumatic Eyes- PERRL. ENT- oropharynx clear Neck- supple, no JVD. Lungs- clear to auscultation no wheezing or crackles Heart- regular rhythm; no murmur, no gallop. Abdomen- normal bowel sounds, soft, nontender, no distension Extremities- no pretibial edema, no erythema seen. s/p b/l foot transmetatarsal amputation Neuro- alert, oriented PERRL, no facial palsy; no dysarthria; moves extremities. Skin- warm & dry, no rashes seen. No sacral pressure ulcer seen Results & Data Results & Data Vital Signs (Past 12 Hours) Vital Signs Temp Pulse Pulse Resp BP BP Pulse Ox 09/23/25 09:27 09/23/25 09:15 97/57 L 09/23/25 09:15 76 16 93 09/23/25 09:00 117/64 09/23/25 09:00 75 13 92 09/23/25 08:53 94/55 L 09/23/25 08:51 76 11 L 92 09/23/25 07:45 94/58 L 09/23/25 07:45 77 17 91 09/23/25 07:30 105/61 09/23/25 07:30 74 15 94 09/23/25 07:15 97/56 L 09/23/25 07:15 80 19 94 09/23/25 06:00 118/57 L 09/23/25 06:00 118/57 L 09/23/25 06:00 118/57 L 09/23/25 06:00 118/57 L 09/23/25 06:00 118/57 L 09/23/25 06:00 76 13 95 09/23/25 05:45 75 12 96 09/23/25 05:45 103/73 09/23/25 05:45 103/73 09/23/25 05:45 103/73 09/23/25 05:45 103/73 09/23/25 05:45 103/73 09/23/25 05:30 110/58 L 09/23/25 05:30 110/58 L 09/23/25 05:30 110/58 L 09/23/25 05:30 110/58 L 09/23/25 05:30 110/58 L 09/23/25 05:30 110/58 L 09/23/25 05:30 110/58 L 09/23/25 05:30 110/58 L 09/23/25 05:30 110/58 L 09/23/25 05:30 77 20 97 09/23/25 05:15 76 13 94 09/23/25 05:15 108/53 L 09/23/25 05:15 108/53 L 09/23/25 05:15 108/53 L 09/23/25 05:15 108/53 L 09/23/25 05:15 108/53 L 09/23/25 05:00 77 14 90 09/23/25 05:00 104/55 L 09/23/25 05:00 104/55 L 09/23/25 05:00 104/55 L 09/23/25 05:00 104/55 L 09/23/25 05:00 104/55 L 09/23/25 04:45 76 17 92 09/23/25 04:45 100/54 L 09/23/25 04:45 100/54 L 09/23/25 04:45 100/54 L 09/23/25 04:45 100/54 L 09/23/25 04:45 100/54 L 09/23/25 04:30 96/51 L 09/23/25 04:30 96/51 L 09/23/25 04:30 96/51 L 09/23/25 04:30 96/51 L 09/23/25 04:30 96/51 L 09/23/25 04:30 78 19 93 09/23/25 04:15 99/59 L 09/23/25 04:15 99/59 L 09/23/25 04:15 99/59 L 09/23/25 04:15 99/59 L 09/23/25 04:15 99/59 L 09/23/25 04:15 78 93 09/23/25 04:14 37.0 C 81 22 105/59 L 94 09/23/25 04:10 09/23/25 04:09 09/23/25 04:06 80 24 93 09/23/25 04:04 105/59 L 09/23/25 04:04 105/59 L 09/23/25 04:04 105/59 L 09/23/25 04:04 105/59 L 09/23/25 04:04 105/59 L 09/23/25 04:03 83 14 91 09/23/25 03:45 78 23 109/72 90 09/23/25 03:44 09/23/25 03:35 76 17 89/53 L 94 09/23/25 03:30 79 18 84/53 L 93 09/23/25 03:15 79 20 73/50 L 92 09/23/25 03:00 79 22 87/52 L 94 09/23/25 02:45 81 18 91/50 L 90 09/23/25 02:30 83 15 87/51 L 90 09/23/25 02:15 82 16 82/50 L 92 09/23/25 02:00 82 18 96/52 L 92 Pulse Ox O2 Del Method O2 Del Method 09/23/25 09:27 Room Air 09/23/25 09:15 09/23/25 09:15 09/23/25 09:00 09/23/25 09:00 09/23/25 08:53 09/23/25 08:51 09/23/25 07:45 09/23/25 07:45 09/23/25 07:30 09/23/25 07:30 09/23/25 07:15 09/23/25 07:15 09/23/25 06:00 09/23/25 06:00 09/23/25 06:00 09/23/25 06:00 09/23/25 06:00 09/23/25 06:00 09/23/25 05:45 09/23/25 05:45 09/23/25 05:45 09/23/25 05:45 09/23/25 05:45 09/23/25 05:45 09/23/25 05:30 09/23/25 05:30 09/23/25 05:30 09/23/25 05:30 09/23/25 05:30 09/23/25 05:30 09/23/25 05:30 09/23/25 05:30 09/23/25 05:30 09/23/25 05:30 09/23/25 05:15 09/23/25 05:15 09/23/25 05:15 09/23/25 05:15 09/23/25 05:15 09/23/25 05:15 09/23/25 05:00 09/23/25 05:00 09/23/25 05:00 09/23/25 05:00 09/23/25 05:00 09/23/25 05:00 09/23/25 04:45 09/23/25 04:45 09/23/25 04:45 09/23/25 04:45 09/23/25 04:45 09/23/25 04:45 09/23/25 04:30 09/23/25 04:30 09/23/25 04:30 09/23/25 04:30 09/23/25 04:30 09/23/25 04:30 09/23/25 04:15 09/23/25 04:15 09/23/25 04:15 09/23/25 04:15 09/23/25 04:15 09/23/25 04:15 09/23/25 04:14 Room Air 09/23/25 04:10 Room Air 09/23/25 04:09 94 Room Air 09/23/25 04:06 09/23/25 04:04 09/23/25 04:04 09/23/25 04:04 09/23/25 04:04 09/23/25 04:04 09/23/25 04:03 09/23/25 03:45 Room Air 09/23/25 03:44 Room Air 09/23/25 03:35 Room Air 09/23/25 03:30 Room Air 09/23/25 03:15 Room Air 09/23/25 03:00 Room Air 09/23/25 02:45 Room Air 09/23/25 02:30 Room Air 09/23/25 02:15 Room Air 09/23/25 02:00 Room Air (1) Sepsis Acute renal failure type: unspecified Sepsis acute organ dysfunction status: with acute organ dysfunction Sepsis type: sepsis due to unspecified organism Severe sepsis acute organ dysfunction type: acute renal failure Severe sepsis shock status: without septic shock Qualified Code(s): A41.9 - Sepsis, unspecified organism; R65.20 - Severe sepsis without septic shock; N17.9 - Acute kidney failure, unspecified
--- NOTE | 2025-09-23 15:15 | Fluoroscopy Report ---
INTRAOPERATIVE RADIOGRAPHS CLINICAL HISTORY: ERCP Fluoro time: 3 minutes 6 seconds Ka,r: 62.20 mGy FINDINGS: 4 spot fluoroscopic views of the right quadrant from an ERCP procedure are presented. Corre lation is made with MRCP dated 09/23/[address] dated 09/22/2025. A catheter is advanced i nto the common bile duct. Injected contrast shows dilatation of the common bile duct with intralumina l filling defects suggesting choledocholithiasis. A balloon sweep of the duct is performed. IMPRESSION: Intraoperative ERCP images as above. See operative report for detailed findings. Electronically signed by: Chan Zabala M.D. 09/23/2025 3:13 PM
[2025-09-23] MEDS ORDERED: Nursing to Pharmacy Communication SCH (15:30)
[2025-09-23] MEDS: CARBOHYDRATES FOR HYPOGLYCEMIA PO PRN (16:30)
[2025-09-23] MEDS: HEPARIN SOD 5,000 UNIT/0.5 ML VIAL SQ SCH (16:58)
[2025-09-23] MEDS: TRAVOPROST Z 0.004% OPH SOLN 2.5 ML BTL OP SCH (21:55)
[2025-09-23] MEDS: SENNA 8.6 MG TAB PO SCH (21:57)
[2025-09-24] MEDS: DICLOFENAC SOD 1% GEL 100 GM TUBE EXT PRN (01:30)
[2025-09-24 06:49] LABS: Hematocrit (blood only) 27.3 % (42.0-52.0); Hemoglobin 9.3 g/dL (14.0-18.0); Mean Corpuscular Hemoglobin 31.3 pg (25.0-34.0); Mean Corpuscular Volume 91.9 fL (80.0-100.0); Platelet Count 101 K/uL (130-400); RDW Standard Deviation 47.1 fL (36.4-46.3); Red Blood Count 2.97 M/uL (4.70-6.10); White Blood Count 5.14 K/ul (4.8-10.8)
[2025-09-24 07:23] LABS: Alanine Aminotransferase 201.0 U/L (7-52); Albumin Globulin Ratio 1.1 (0.9-2); Albumin Level 2.7 gm/dl (3.4-5.0); Alkaline Phosphatase 82.0 U/L (34-104); Anion Gap 7.0 (3-11); Bilirubin,Total 3.8 mg/dl (0.2-1.0); Blood Urea Nitrogen 41.0 mg/dl (6-23); Calcium 7.4 mg/dl (8.6-10.3); Carbon Dioxide 19.0 mmol/L (21-32); Chloride 112.0 mmol/L (98-107); Creatinine Clr Calc Pharmacy 28.8 ml/min; Globulin 2.5 gm/dl (2.5-4.0); Glucose 54.0 mg/dl (70-99(Fasting)); Magnesium 2.1 mg/dl (1.7-2.4); Potassium 4.1 mmol/L (3.5-5.1); Sodium 138.0 mmol/L (136-145); Total Protein 5.2 gm/dl (6.0-8.3)
[2025-09-24] MEDS: CHOLECALCIFEROL 25 MCG (1000 UNITS) TAB PO SCH (08:20)
--- NOTE | 2025-09-24 09:24 | Gastroenterology Progress Note ---
Date of Service September 24, 2025 Assessment & Plan (1) Cholelithiasis: Plan: Doing well post ERCP with stone extraction. Would advance diet if surgery not planning to do jason on this admit Admission and Anticipated Discharge Date Admission Date: September 23, 2025 Subjective Feeling well after ERCP. Hungry Physical Exam Physical Exam: He looks well Constitutional: WD/WN, vitals as above Results & Data Vital Signs (Past 12 Hours) Vital Signs Temp Pulse Pulse Resp BP Pulse Ox O2 Del Method 09/24/25 07:59 79 09/24/25 07:02 36.9 C 79 20 124/72 94 Room Air 09/24/25 03:25 36.7 C 82 16 121/72 90 Room Air 09/23/25 22:21 37.3 C 86 16 125/57 L 92 Room Air 09/23/25 21:43 83 (1) Cholelithiasis Cholecystitis acuity: acute Cholelithiasis location: gallbladder
[2025-09-24] MEDS: D5W AND 1/2NSS 1,000 ML IV SCH (10:07)
[2025-09-24 10:38] LABS: Cdiff Toxin B Gene (2yr or >) Negative Cdiff Gene (Neg)
[2025-09-24 11:11] LABS: Adenovirus F 40/41 PCR Not Detected (NotDetected); Campylobacter PCR Not Detected (NotDetected); Enteroaggregative E.coli(EAEC) Not Detected (NotDetected); Shiga-like Toxin E.coli (STEC) Not Detected (NotDetected); Vibrio species PCR Not Detected (NotDetected)
--- NOTE | 2025-09-24 12:49 | Surgery Progress Note ---
Date of Service September 24, 2025 Assessment & Plan (1) Cholelithiasis: (2) Choledocholithiasis: Plan He would like to have his GB removed during this admission as he will be away for a month soon after discharge. NPO after MN Plan for the OR tomorrow for lap jason and if am LFTs are continuing to improve, pt may be discharged after the procedure. Hold am Heparin Admission and Anticipated Discharge Date Admission Date: September 23, 2025 Subjective I have seen this patient this am. He is without complaints. Tolerating clears. Physical Exam Constitutional: + obese; not in distress and not diaphor etic Respiratory: normal respiratory effort; no respiratory distress, no labored breathing and does not use accessory muscles Results & Data Vital Signs (Past 12 Hours) Vital Signs Temp Pulse Pulse Resp BP Pulse Ox O2 Del Method 09/24/25 10:44 36.7 C 74 19 129/73 94 Room Air 09/24/25 07:59 79 09/24/25 07:02 36.9 C 79 20 124/72 94 Room Air 09/24/25 03:25 36.7 C 82 16 121/72 90 Room Air PG Care Time/CCT Total # of Minutes Spent Total Time Spent with Patient: Total time spent is greater than 50% in coordination of care (as documented) at patient's floor/unit and/or counseling patient: Coding Level of Care Code 30079 SUB INP/OBS CARE 2/35MIN Diagnoses Calculus of gallbladder and bile duct with obstruction without cholecystitis K80.71 Cholelithiasis location: gallbladder and bile duct Cholecystitis presence: without cholecystitis Biliary obstruction: with biliary obstruction Choledocholithiasis K80.50 (1) Cholelithiasis Cholelithiasis location: gallbladder and bile duct Cholecystitis presence: without cholecystitis Biliary obstruction: with biliary obstruction Qualified Code(s): K80.71 - Calculus of gallbladder and bile duct without cholecystitis with obstruction
[2025-09-24] MEDS: SODIUM CHLORIDE 0.45 % 1,000 ML IV SCH (13:32)
--- NOTE | 2025-09-24 13:39 | Hospitalist Progress Note ---
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 Possible developing cholangitis Septic shock POA Bacteremia Transaminitis Patient reported epigastric discomfort prior to arrival, had fever and elevated LFT at presentation. At presentation: WBC 2.7 K, respiratory rate and heart rate elevated. Pro-Jam and lactic acid elevated. LFT elevated Patient needed pressor support at admission due to hypotension despite IVF resuscitation, was admitted in ICU. Admitting blood culture positive for gram-negative baseline Admitting CTAP with cholelithiasis with subtle inflammatory changes about the cystic duct MRCP with CBD stone with mild common ductal dilatation. Status post ERCP 09/23: Choledocholithiasis was found, complete removal was accomplished by biliary sphincterotomy and balloon extraction. Trend LFT, downtrending Continue with Ertapenem 09/23, follow culture and sensitivity. Gen Sx plan for lap jason this admission Hypomagnesemia and hypocalcemia: Monitor and replete. 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 Admitting creatinine of 2.2, likely prerenal in the setting of septic shock. Status post IV fluid and pressor support. Avoid nephrotoxic, labs in AM. Continue with gentle IV fluid today. If worsening consider nephrology consult. History of dialysis in the past. Vitamin D deficiency: Vitamin D level low. 27.5. Start vitamin D supplement, repeat vitamin D level in 3 months. Pancytopenia: Follows hematology and oncology in [place]. Maintain prior follow-up. Other chronic medical conditions: Continue with/resume home meds as and when able. Diabetes: Hold pioglitazone, sliding scale insulin while inpatient. PPx: Holding Flomax now due to hypotension at presentation, currently on Harris. Resume Flomax once hemodynamically stable. Hyperlipidemia: Holding statin due to elevated LFTs for now, resume once LFT normalized. Glaucoma: Continue home eyedrops Seizure: Continue home Keppra Hypertension: Hold for now given hypotension, consider resuming when stable. DVT prophylaxis: Heparin subcu Disposition: PCU/telemetry, plan for lap jason 09/26 (NPO MN and hold hep as appropriate) CODE STATUS: Full code Admission and Anticipated Discharge Date Admission Date: September 23, 2025 Subjective Patient was seen and examined at bedside. Patient was lying in bed, on room air, NAD. Patient is status post ERCP 09/23. Patient denies abdominal pain, reports feeling better, vitals are stable now. Pt had a large BM today. Physical Exam Physical Exam: General- Not in distress Head- atraumatic Eyes- PERRL. ENT- oropharynx clear Neck- supple, no JVD. Lungs- clear to auscultation no wheezing or crackles Heart- regular rhythm; no murmur, no gallop. Abdomen- normal bowel sounds, soft, nontender, no distension Extremities- no pretibial edema, no erythema seen. s/p b/l foot transmetatarsal amputation Neuro- alert, oriented PERRL, no facial palsy; no dysarthria; moves extremities. Skin- warm & dry, no rashes seen. No sacral pressure ulcer seen Results & Data Results & Data Vital Signs (Past 12 Hours) Vital Signs Temp Pulse Pulse Resp BP Pulse Ox O2 Del Method 09/24/25 10:44 36.7 C 74 19 129/73 94 Room Air 09/24/25 07:59 79 09/24/25 07:02 36.9 C 79 20 124/72 94 Room Air 09/24/25 03:25 36.7 C 82 16 121/72 90 Room Air (1) Sepsis Acute renal failure type: unspecified Sepsis acute organ dysfunction status: with acute organ dysfunction Sepsis type: sepsis due to unspecified organism Severe sepsis acute organ dysfunction type: acute renal failure Severe sepsis shock status: without septic shock Qualified Code(s): A41.9 - Sepsis, unspecified organism; R65.20 - Severe sepsis without septic shock; N17.9 - Acute kidney failure, unspecified
--- NOTE | 2025-09-25 06:55 | Anesthesiology Consultation ---
Date of Service September 25, 2025 Assessment & Plan Chart Review Chart Review: Acceptable Risk for Surgery Consults Requested none ASA ASA3 Proposed Anesthesia Anesthesia Type: General Risk / Benefits Reviewed With: PT / POA / Parent / Guardian, Accepts Plan and Informed Consent Obtained History Surgery Operation Date: 09/23/25 12:00 Proposed Procedures p Endoscopic Retrograde Cholangiopancreatogram - Joaquin Braga MD Operation Date: 09/25/25 08:00 Proposed Procedures p Laparoscopic Cholecystectomy - Anibal Knutson DO Height/Weight Height: 5 ft 2 in Weight: 102.058 kg Allergies Allergy/AdvReac Type Severity Reaction Status Date / Time cefepime Allergy Unknown SEE COMMENT Verified 08/02/25 10:47 simvastatin AdvReac Intermediate Gastrointestinal Verified 08/02/25 10:47 Upset Medications Home Medications Medication Instructions Recorded Confirmed Last Taken amlodipine 5 mg tablet 5 mg PO DAILY 09/23/25 09/23/25 Unknown apple cider vinegar 600 mg capsule 450 mg PO DAILY 09/23/25 09/23/25 Unknown atorvastatin 40 mg tablet 40 mg PO DAILY 09/23/25 09/23/25 Unknown brimonidine 0.2 % eye drops 1 drp ophthalmic (eye) BID 09/23/25 09/23/25 Unknown diclofenac sodium 3 % topical gel 1 applic topical TID PRN Pain 09/23/25 09/23/25 Unknown gabapentin 100 mg capsule 100 mg PO TID 09/23/25 09/23/25 Unknown insulin glargine 100 unit/mL 22 unit subcut DAILY 09/23/25 09/23/25 Unknown subcutaneous solution levetiracetam 500 mg tablet 500 mg PO DAILY 09/23/25 09/23/25 Unknown multivitamin 1 tab PO DAILY 09/23/25 09/23/25 Unknown pioglitazone 30 mg tablet 30 mg PO DAILY 09/23/25 09/23/25 Unknown polyethylene glycol 3350 17 gram 17 g PO DAILY PRN Constipation 09/23/25 09/23/25 Unknown oral powder packet (Miralax) sennosides 8.6 mg capsule (senna) 8.6 mg PO HS 09/23/25 09/23/25 Unknown sildenafil 100 mg tablet 100 mg PO UD PRN Erectile 09/23/25 09/23/25 Unknown Dysfunction tamsulosin 0.4 mg capsule 0.4 mg PO DAILY 09/23/25 09/23/25 Unknown travoprost 0.004 % eye drops 1 drp ophthalmic (eye) PM 09/23/25 09/23/25 Unknown Active Medications Generic Name Dose Route Start Last Admin Trade Name Freq PRN Reason Stop Dose Admin Brimonidine Tartrate 1 drops 09/23/25 09:00 09/24/25 20:21 Brimonidine Tartrate 0.2% 5ml OP 10/23/25 08:59 1 drops BID DILSHAD Administration Diclofenac Sodium 4 gm 09/23/25 04:13 09/24/25 01:30 Diclofenac Sod 1% Gel 100 Gm Tube EXT 10/23/25 04:12 4 gm TID PRN Administration Pain Gabapentin 100 mg 09/23/25 09:00 09/24/25 20:20 Gabapentin 100 Mg Cap PO 10/23/25 08:59 100 mg TID DILSHAD Administration Heparin Sodium (Porcine) 7,500 units 09/23/25 09:00 09/24/25 20:21 Heparin Sod 5,000 Unit/0.5 Ml Vial SQ 10/23/25 08:59 7,500 units Q12 DILSHAD Administration Ertapenem 500 mg in 5 mls @ 2 mls/min 09/23/25 11:15 09/24/25 10:22 Invanz 500mg IV 10/07/25 11:14 2 mls/min Q24H DILSHAD Administration Sodium Chloride 1,000 mls @ 50 mls/hr 09/24/25 13:30 09/24/25 13:32 1/2 Nss IV 09/27/25 13:29 50 mls/hr .Q20H DILSHAD Administration Insulin Aspart 0 units 09/23/25 16:30 09/24/25 20:08 Insulin Aspart Per Unit Charge SC 10/23/25 04:08 Not Given ACHS DILSHAD Levetiracetam 500 mg 09/23/25 09:00 09/24/25 08:21 Levetiracetam 500 Mg Tab PO 10/23/25 08:59 500 mg DAILY DILSHAD Administration Miscellaneous 15 - 30 gm 09/23/25 04:09 09/23/25 16:30 Carbohydrates For Hypoglycemia PO 10/23/25 04:08 15 gm UD PRN Administration Hypoglycemia Protocol Multivitamins 1 tab 09/23/25 09:00 09/24/25 08:21 Multivitamin Tab PO 10/23/25 08:59 1 tab DAILY DILSHAD Administration Sennosides 8.6 mg 09/23/25 21:00 09/24/25 20:20 Senna 8.6 Mg Tab PO 10/23/25 20:59 8.6 mg HS DILSHAD Administration Travoprost 1 drops 09/23/25 21:00 09/24/25 20:21 Travoprost Z 0.004% Oph Soln 2.5 Ml Btl OP 10/23/25 20:59 1 drops PM DILSHAD Administration Vitamin D 25 mcg 09/24/25 09:00 09/24/25 08:20 Cholecalciferol 25 Mcg (1000 Units) Tab PO 10/24/25 08:59 25 mcg QAM DILSHAD Administration NPO Date Last Intake of Fluids: 09/22/26 Time Last Intake of Fluids: 20:00 Date Last Intake of Solids: 09/22/26 Time Last Intake of Solids: 14:00 Past Medical History Medical History (Updated 09/24/25 @ 13:00 by Anibal Knutson DO) Encounter for pre-operative examination Chronic kidney disease HEMANT (acute kidney injury) Hypomagnesemia Septic shock Elevated LFTs History of renal dialysis Foot osteomyelitis, right Foot osteomyelitis, left Pancytopenia PVD (peripheral vascular disease) HLD (hyperlipidemia) HTN (hypertension) T2DM (type 2 diabetes mellitus) Glaucoma Past Family History Family History Father Cancer Colorectal cancer Mother Old age Past Surgical History Surgical History History of lumbar fusion Early 1999. L4-S1 laminectomy and fusion. 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 Social History Smoking Status: Former smoker Do You Dip or Chew Tobacco: No Hx Alcohol Use: No Hx Substance Use: No substance use type: does not use Physical Exam Vital Signs Last Vital Signs Temp 37.4 C 09/25/25 02:41 Pulse 78 09/25/25 02:41 Resp 16 09/25/25 02:41 BP 166/80 H 09/25/25 02:41 Pulse Ox 93 09/25/25 02:41 O2 Del Method Room Air 09/25/25 02:41 Testing Laboratory Results PT 11.6 Seconds (9.0-12.0) 09/23/25 05:20 INR 1.1 (0.9-1.1) 09/23/25 05:20 Hemoglobin A1c 10.5 % (4.5-5.6) H 09/23/25 04:36 Urine Color Dark Yellow 09/23/25 03:10 Urine Appearance Clear (Clear) 09/23/25 03:10 Urine pH 5.0 (4.5-7.5) 09/23/25 03:10 Ur Specific [place] 1.024 (1.000-1.030) 09/23/25 03:10 Urine Protein 1+ (Negative) H 09/23/25 03:10 Urine Glucose (UA) Negative (Negative) 09/23/25 03:10 Urine Ketones Trace (Negative) H 09/23/25 03:10 Urine Nitrite Negative (Negative) 09/23/25 03:10 Ur Leukocyte Esterase Negative (Negative) 09/23/25 03:10 Urine WBC (Auto) 0-5 /hpf (0-5) 09/23/25 03:10 Urine RBC (Auto) 0-2 /hpf (0-2) 09/23/25 03:10 U Hyaline Cast (Auto) 3-5 /lpf (0-2) H 09/23/25 03:10 U Epithel Cells (Auto) 0-2 /hpf (0-2) 09/23/25 03:10 Urine Bacteria (Auto) None Seen (None Seen) 09/23/25 03:10 09/22/25 21:55 Aerobic Blood Culture - Preliminary Blood Escherichia coli Anaerobic Blood Culture - Preliminary Escherichia coli 09/22/25 21:50 Aerobic Blood Culture - Preliminary Blood Escherichia coli Anaerobic Blood Culture - Preliminary Escherichia coli 09/25/25 09/25/25 09/24/25 05:59 00:05 20:02 POC Glucose 99 93 82 Electrocardiogram Date: 09/22/25 Findings: + RBBB and + ST @ Chest X-Ray Date: 09/22/25 IMPRESSION: No evidence of acute cardiopulmonary disease.
[2025-09-25 06:56] LABS: Hematocrit (blood only) 30.1 % (42.0-52.0); Hemoglobin 9.8 g/dL (14.0-18.0); Mean Corpuscular Hemoglobin 30.1 pg (25.0-34.0); Mean Corpuscular Volume 92.3 fL (80.0-100.0); Platelet Count 98 K/uL (130-400); RDW Standard Deviation 47.5 fL (36.4-46.3); Red Blood Count 3.26 M/uL (4.70-6.10); White Blood Count 3.74 K/ul (4.8-10.8)
[2025-09-25] MEDS ORDERED: ROCURONIUM BROMIDE 10 MG/ML 5 ML VIAL IV ONE (07:07)
[2025-09-25] MEDS ORDERED: PROPOFOL IV EMULSION 10 MG/ML 20 ML VIAL IV ONE (07:07)
[2025-09-25] MEDS ORDERED: ONDANSETRON INJ 2 MG/ML 2 ML VIAL ONE (07:07)
[2025-09-25] MEDS ORDERED: LIDOCAINE 2% 2 ML VIAL/AMP(20MG/ML) INFIL ONE (07:07)
[2025-09-25 07:26] LABS: Alanine Aminotransferase 139.0 U/L (7-52); Albumin Globulin Ratio 1.0 (0.9-2); Albumin Level 2.9 gm/dl (3.4-5.0); Alkaline Phosphatase 120.0 U/L (34-104); Anion Gap 6.0 (3-11); Bilirubin,Total 2.6 mg/dl (0.2-1.0); Blood Urea Nitrogen 33.0 mg/dl (6-23); Calcium 8.0 mg/dl (8.6-10.3); Carbon Dioxide 20.0 mmol/L (21-32); Chloride 112.0 mmol/L (98-107); Creatinine Clr Calc Pharmacy 33.0 ml/min; Globulin 2.8 gm/dl (2.5-4.0); Glucose 96.0 mg/dl (70-99(Fasting)); Potassium 4.5 mmol/L (3.5-5.1); Sodium 138.0 mmol/L (136-145); Total Protein 5.7 gm/dl (6.0-8.3)
[2025-09-25] MEDS ORDERED: ATROPINE SULFATE 0.1 MG/ML 10ML SYR IV PRN (07:26)
[2025-09-25] MEDS ORDERED: ONDANSETRON INJ 2 MG/ML 2 ML VIAL IV PRN (07:26)
--- NOTE | 2025-09-25 08:00 | History & Physical Bridge Note ---
Date of Service September 25, 2025 History & Physical Bridge Note I have examined the patient, reviewed the History & Physical and in the interval since the performance of the History & Physical I have noted the following changes of clinical significance: no changes noted. Pt seen this am. Plan for lap jason this am. The details of the procedure have been explained to him including the risks and benefits. Consent has been obtained.
[2025-09-25] MEDS ORDERED: ALBUTEROL HFA 8 GM INHALER INH ONE (08:10)
[2025-09-25] MEDS ORDERED: ceFAZolin 330 MG/ML 1 GM VIAL ONE (08:21)
[2025-09-25] MEDS: TRANEXAMIC ACID 100 MG/ML 10 ML VIAL IV ONE (09:21)
[2025-09-25] MEDS: FLOSEAL HEMOSTATIC MATRIX 5ML TOP ONE (09:31)
[2025-09-25] MEDS ORDERED: SUGAMMADEX SODIUM 200 MG/2 ML VIAL IV ONE (09:52)
[2025-09-25] MEDS: BUPIVACAINE/EPINEPHRINE 0.5% MPF 1:200,000 30 ML VIAL ONE (09:57)
--- NOTE | 2025-09-25 10:25 | Operative Report ---
PG Post Operative Report Pre & Post Diagnosis Operation Date: 09/25/25 08:00 Pre-Op Diagnosis: Cholelithiasis, Choledocholithiasis Post-Op Diagnosis: Cholelithiasis, Choledocholithiasis I identified the patient and participated in the time-out.: Yes Procedure Operation Date: 09/25/25 08:00 Actual Procedures p Laparoscopic Cholecystectomy(Not Applicable) - Anibal Knutson DO Surgeon Anibal Knutson DO [employer] In[employer] YOCASTA Kuhn Estimated Blood Loss 50 Findings See Below chronic cholecystitis Specimens Gallbladder Anesthesia Type General Complications No immediate complications Indications choledocholithiasis secondary with jaundice, s/p ERCP Description of Procedure The patient was brought back to the operating room and placed on the OR table in supine position. He was connected to cardiac and oxygen monitoring, supplemental O2 was provided and SCDs were applied to bilateral lower extremities. The patient was administered general anesthesia and a secure airway was established. The abdomen was prepped and draped in typical sterile fashion and a timeout was conducted. Local anesthetic was used anesthetize skin and subcutaneous tissues prior to making all incisions and all incisions were made with an 11 blade. Intra- abdominal access was gained to the supraumbilical fold using a Veress needle which was confirmed with a saline drop test. CO2 insufflation was initiated and pneumoperitoneum was established local pressure 15 mmHg. A 5 mm trocar was inserted using direct visualization with a 5 mm laparoscope and an Optiview port. Under direct visualization, an 11 mm trocar was inserted the epigastric region and 2 additional 5 mm trocars along the right subcostal margin. The OR table was positioned in reverse Trendelenburg left side down. The excessive amount of intra-abdominal fat needed to be mobilized inferiorly to fully expose the gallbladder. The gallbladder was grasped at the fundus and retracted superiorly. The infundibulum was grasped and retracted inferiorly. The cystic triangle was dissected using alternating blunt and cautery dissection. The artery and the cystic duct were exposed. These 2 structures were each ligated using a 5 mm clip motor runner approximately and 1 clip distally. The cystic artery was transected with a laparoscopic EndoShears. The cystic duct was partially transected and an additional clip was applied to be sure the entire lumen was ligated. The cystic duct was then transected with the EndoShears. The gallbladder was cauterized from the liver bed. There was evidence for chronic cholecystitis. The gallbladder wall was thickened at the liver bed and the gallbladder wall was compromised. Dark black stones evacuated. The stones were suctioned away. Bleeding at the liver bed was controlled using multiple modalities. Cautery, Floseal and the patient was administered TXA. Hemostasis was finally achieved. The gallbladder been placed in an Endo Catch bag and removed from the epigastric incision. Gallbladder was placed in a label container sent to pathology for further analysis. The liver bed and perihepatic space were copiously irrigated and suctioned dried. The liver bed was checked multiple times again for hemostasis. There was no further bleeding. The instruments were removed. CO2 insufflation was discontinued. The OR table was returned to the neutral position and excess pneumoperitoneum was evacuated. The trocars were removed. The fascia at the epigastric incision was closed using 0 Vicryl suture. Additional local anesthetic was used in each incision site and the subcutaneous tissue. The skin was approximated using 4-0 Vicryl suture. The abdomen was wiped clean with a saline soaked lap pad and dried. Each incision was further sealed using Dermabond. The patient tolerated the procedure well. He was awakened from anesthesia, secure airway was removed and transferred recovery in stable condition. I attest to the content of the Intraoperative Record and any orders documented therein. Any exceptions are noted below.
--- NOTE | 2025-09-25 10:44 | Anesthesiology Progress Note ---
Date of Service September 25, 2025 Anesthesia Post Procedure Vital Signs Vital Signs: Temp Pulse Pulse Resp BP Pulse Ox O2 Del Method 09/25/25 10:35 86 26 H 117/70 91 Room Air 09/25/25 10:25 94 H 13 133/77 92 Oxymask 09/25/25 10:16 36.7 C 86 13 165/69 H 96 Oxymask 09/25/25 08:00 81 09/25/25 07:26 81 09/25/25 02:41 37.4 C 78 16 166/80 H 93 Room Air 09/25/25 00:00 77 09/24/25 22:49 36.9 C 82 20 139/70 90 Room Air 09/24/25 19:23 36.7 C 78 24 125/69 96 Room Air 09/24/25 15:55 36.6 C 78 17 136/75 92 Room Air 09/24/25 14:24 79 O2 Flow Rate 09/25/25 10:35 09/25/25 10:25 5 09/25/25 10:16 10 09/25/25 08:00 09/25/25 07:26 09/25/25 02:41 09/25/25 00:00 09/24/25 22:49 09/24/25 19:23 09/24/25 15:55 09/24/25 14:24 Transfer of Care Handoff Completed per policy Notes Mental Status: alert / awake / arousable Patient Amnestic to Procedure: Yes Nausea / Vomiting: adequately controlled Pain: adequately controlled Airway Patency, RR, SpO2: stable & adequate BP & HR: stable & adequate Hydration State: stable & adequate Anesthetic Complications: no major complications apparent
[2025-09-25] MEDS: MoRPHine SULFATE 2 MG/ML CARP IV PRN (11:26)
--- NOTE | 2025-09-25 14:14 | Hospitalist Progress Note ---
Date of Service September 25, 2025 Assessment & Plan (1) Sepsis: Plan: 80 yo F w/ PMH of chronic kidney disease who required dialysis in the past because of 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 Possible developing cholangitis Septic shock POA Bacteremia Transaminitis Patient reported epigastric discomfort prior to arrival, had fever and elevated LFT at presentation. At presentation: WBC 2.7 K, respiratory rate and heart rate elevated. Pro-Jam and lactic acid elevated. LFT elevated Patient needed pressor support at admission due to hypotension despite IVF resuscitation, was admitted in ICU. Admitting blood culture positive for gram-negative baseline Admitting CTAP with cholelithiasis with subtle inflammatory changes about the cystic duct MRCP with CBD stone with mild common ductal dilatation. Status post ERCP 09/23: Choledocholithiasis was found, complete removal was accomplished by biliary sphincterotomy and balloon extraction. s/p lap jason 09/25 Trend LFT, downtrending Continue with Ertapenem 09/23, follow culture and sensitivity. ID consult. Gen sx on board, appreciate help. Hypomagnesemia and hypocalcemia: Monitor and replete. 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 Admitting creatinine of 2.2, likely prerenal in the setting of septic shock. Status post IV fluid and pressor support. Avoid nephrotoxic, labs in AM. Continue with gentle IV fluid today. cr improving. If worsening consider nephrology consult. History of dialysis in the past. Vitamin D deficiency: Vitamin D level low. 27.5. c/w vitamin D supplement, repeat vitamin D level in 3 months. Pancytopenia: Follows hematology and oncology in [place]. Maintain prior follow-up. Other chronic medical conditions: Continue with/resume home meds as and when abl e. Diabetes: Hold pioglitazone, sliding scale insulin while inpatient. PPx: Holding Flomax now due to hypotension at presentation, currently on Harris. Resume Flomax once hemodynamically stable. Hyperlipidemia: Holding statin due to elevated LFTs for now, resume once LFT normalized. Glaucoma: Continue home eyedrops Seizure: Continue home Keppra Hypertension: Hold for now given hypotension, consider resuming when stable. DVT prophylaxis: Heparin subcu Disposition: PCU/telemetry CODE STATUS: Full code Admission and Anticipated Discharge Date Admission Date: September 23, 2025 Subjective Patient was seen and examined at bedside. Patient was lying in bed, on room air, NAD. Patient is status post ERCP 09/23 and s/p lap jason 09/25 Patient denies abdominal pain, vitals are stable now. Pt had a large BM yesterday. Physical Exam Physical Exam: General- Not in distress Head- atraumatic Eyes- PERRL. ENT- oropharynx clear Neck- supple, no JVD. Lungs- clear to auscultation no wheezing or crackles Heart- regular rhythm; no murmur, no gallop. Abdomen- normal bowel sounds, soft, nontender, no distension, lap incision site well apposed. Extremities- no pretibial edema, no erythema seen. s/p b/l foot transmetatarsal amputation Neuro- alert, oriented PERRL, no facial palsy; no dysarthria; moves extremities. Skin- warm & dry, no rashes seen. No sacral pressure ulcer seen Results & Data Results & Data Vital Signs (Past 12 Hours) Vital Signs Temp Pulse Pulse Resp BP Pulse Ox O2 Del Method 09/25/25 11:55 36.8 C 88 18 151/66 H 94 Nasal Cannula 09/25/25 11:34 Nasal Cannula 09/25/25 11:28 36.8 C 83 18 152/76 H 94 Nasal Cannula 09/25/25 10:57 36.6 C 85 22 144/67 H 90 Nasal Cannula 09/25/25 10:45 36.6 C 85 15 149/67 H 92 Room Air 09/25/25 10:35 86 26 H 117/70 91 Room Air 09/25/25 10:25 94 H 13 133/77 92 Oxymask 09/25/25 10:16 36.7 C 86 13 165/69 H 96 Oxymask 09/25/25 08:00 81 09/25/25 07:26 81 09/25/25 02:41 37.4 C 78 16 166/80 H 93 Room Air O2 Flow Rate 09/25/25 11:55 2 09/25/25 11:34 4 09/25/25 11:28 2 09/25/25 10:57 2 09/25/25 10:45 09/25/25 10:35 09/25/25 10:25 5 09/25/25 10:16 10 09/25/25 08:00 09/25/25 07:26 09/25/25 02:41 (1) Sepsis Acute renal failure type: unspecified Sepsis acute organ dysfunction status: with acute organ dysfunction Sepsis type: sepsis due to unspecified organism Severe sepsis acute organ dysfunction type: acute renal failure Severe sepsis shock status: without septic shock Qualified Code(s): A41.9 - Sepsis, unspecified organism; R65.20 - Severe sepsis without septic shock; N17.9 - Acute kidney failure, unspecified
--- NOTE | 2025-09-25 21:01 | Electrocardiogram Report ---
Test Reason : Blood Pressure : */* mmHG Vent. Rate : 76 BPM Atrial Rate : 76 BPM P-R Int : 206 ms QRS Dur : 146 ms QT Int : 402 ms P-R-T Axes : 43 33 35 degrees QTcB Int : 452 ms Normal sinus rhythm with first degree AV block Right bundle branch block Abnormal ECG When compared with ECG of 23-Sep-2025 04:28, Right bundle branch block is now Present Confirmed by Katelyn Tavares (Arsenio) on 09/25/2025 9:01:23 PM Referred By: REFERRED SELF Confirmed By: Katelyn Tavares
[2025-09-26 06:13] LABS: Hematocrit (blood only) 24.1 % (42.0-52.0); Hemoglobin 7.9 g/dL (14.0-18.0); Mean Corpuscular Hemoglobin 30.6 pg (25.0-34.0); Mean Corpuscular Volume 93.4 fL (80.0-100.0); Platelet Count 91 K/uL (130-400); RDW Standard Deviation 46.0 fL (36.4-46.3); Red Blood Count 2.58 M/uL (4.70-6.10); White Blood Count 3.19 K/ul (4.8-10.8)
[2025-09-26 06:14] LABS: Immature Granulocytes # (auto) 0.05 K/uL (0.01-0.20); Immature Granulocytes % (auto) 1.6 %
[2025-09-26 06:35] LABS: Alanine Aminotransferase 86.0 U/L (7-52); Albumin Globulin Ratio 1.0 (0.9-2); Albumin Level 2.6 gm/dl (3.4-5.0); Alkaline Phosphatase 115.0 U/L (34-104); Anion Gap 6.0 (3-11); Bilirubin,Total 1.7 mg/dl (0.2-1.0); Blood Urea Nitrogen 27.0 mg/dl (6-23); Calcium 7.5 mg/dl (8.6-10.3); Carbon Dioxide 22.0 mmol/L (21-32); Chloride 109.0 mmol/L (98-107); Creatinine Clr Calc Pharmacy 36.2 ml/min; Globulin 2.6 gm/dl (2.5-4.0); Glucose 96.0 mg/dl (70-99(Fasting)); Potassium 4.4 mmol/L (3.5-5.1); Sodium 137.0 mmol/L (136-145); Total Protein 5.2 gm/dl (6.0-8.3)
[2025-09-26 06:39] LABS: Dohle Bodies 1+
--- NOTE | 2025-09-26 09:52 | Surgery Progress Note ---
Date of Service September 26, 2025 Assessment & Plan (1) Cholelithiasis: (2) Choledocholithiasis: Plan Patient is POD #1 status post laparoscopic cholecystectomy by Dr. Mosqueda. - Patient doing well this morning, no acute complaints. Tolerating a this morning. Patient states that he would like to go home later today if possible. - Afebrile, WBC within normal limits, patient does not require any additional antibiotic coverage from a surgical standpoint. -LFTs downtrending appropriately. -Hemoglobin did drop to today at 7.9 from 9.8 yesterday. Will plan to repeat H&H this afternoon, if stable patient is okay from a surgical standpoint for potential D/C. -Harris ok to remove from our standpoint, will defer to medical team for removal - Discussed with patient postoperative instructions and follow-up with Dr. Mosqueda in approximately 2 weeks in our out patient office for his postoperative appointment. Admission and Anticipated Discharge Date Admission Date: September 23, 2025 Subjective Patient seen and examined this morning with Dr. Knutson. States that he is feeling well, denies any abdominal pain, nausea or vomiting. Tolerating a diet postoperatively LFTs downtrending, however hemoglobin this morning did drop to 7.9 from 9.8 yesterday. Patient is not hypotensive or tachycardic. Physical Exam Constitutional: WD/WN, vitals as above Respiratory: normal respiratory effort, lungs clear to auscultation Cardiovascular: Rate/Rhythm: regular rate Gastrointestinal (Abdomen): Abdomen soft, nondistended, appropriate tenderness to palpation over surgical sites Surgical sites are clean, dry, and intact. Dermabond in place. No overlying signs of infection Results & Data Vital Signs (Past 12 Hours) Vital Signs Temp Pulse Pulse Resp BP Pulse Ox O2 Del Method 09/26/25 07:12 36.8 C 79 20 142/69 H 90 Room Air 09/26/25 07:00 77 09/26/25 03:12 36.8 C 75 19 133/65 92 Room Air 09/26/25 00:00 74 09/25/25 23:09 36.9 C 74 20 134/65 93 Room Air PG Care Time/CCT Total # of Minutes Spent Total Time Spent with Patient: Total time spent is greater than 50% in coordination of care (as documented) at patient's floor/unit and/or counseling patient: Coding [place] [address] Post Operative Follow-Up Patient Type Established History Problem Focused Exam Problem Focused Medical Decision Making Straight Forward Diagnoses Calculus of gallbladder and bile duct with obstruction without cholecystitis K80.71 Biliary obstruction: with biliary obstruction Cholecystitis presence: without cholecystitis Cholelithiasis location: gallbladder and bile duct Choledocholithiasis K80.50 (1) Cholelithiasis Biliary obstruction: with biliary obstruction Cholecystitis presence: without cholecystitis Cholelithiasis location: gallbladder and bile duct Qualified Code(s): K80.71 - Calculus of gallbladder and bile duct without cholecystitis with obstruction
--- NOTE | 2025-09-26 11:08 | Electrocardiogram Report ---
Test Reason : Blood Pressure : */* mmHG Vent. Rate : 79 BPM Atrial Rate : 79 BPM P-R Int : 202 ms QRS Dur : 140 ms QT Int : 388 ms P-R-T Axes : 50 38 39 degrees QTcB Int : 444 ms Normal sinus rhythm Right bundle branch block Low voltage QRS Abnormal ECG When compared with ECG of 24-Sep-2025 10:05, No significant change was found Confirmed by Katelyn Tavares (Arsenio) on 09/26/2025 11:08:47 AM Referred By: REFERRED SELF Confirmed By: Katelyn Tavares
[2025-09-26 12:51] LABS: Urea Nitrogen, Random Urine 243 mg/dL
--- NOTE | 2025-09-26 12:54 | Hospitalist Progress Note ---
Date of Service September 26, 2025 Assessment & Plan (1) Sepsis: Plan: 80 yo F w/ PMH of chronic kidney disease who required dialysis in the past because of 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 Possible developing cholangitis Septic shock POA Bacteremia Transaminitis Patient reported epigastric discomfort prior to arrival, had fever and elevated LFT at presentation. At presentation: WBC 2.7 K, respiratory rate and heart rate elevated. Pro-Jam and lactic acid elevated. LFT elevated Patient needed pressor support at admission due to hypotension despite IVF resuscitation, was admitted in ICU. Admitting blood culture positive for ESBL E coli Admitting CTAP with cholelithiasis with subtle inflammatory changes about the cystic duct MRCP with CBD stone with mild common ductal dilatation. Status post ERCP 09/23: Choledocholithiasis was found, complete removal was accomplished by biliary sphincterotomy and balloon extraction. s/p lap jason 09/25 Trend LFT, downtrending Continue with Ertapenem 09/23, follow culture and sensitivity. ID consult. Gen sx on board, appreciate help. Acute blood loss anemia: PreOp Hb 9.8, post op 7.9. Pt denies chest pain, palpitation, dizziness or sob. likely 2/2 periopertaive blood loss and hemodilution. Will repeat HnH at 2pm and in am, hold heparin for now. Hypomagnesemia and hypocalcemia: Monitor and replete. 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 Admitting creatinine of 2.2, likely prerenal in the setting of septic shock. Status post IV fluid and pressor support. Avoid nephrotoxic, labs in AM. Cr resolved, dc ivf. History of dialysis in the past. Vitamin D deficiency: Vitamin D level low. 27.5. c/w vitamin D supplement, repeat vitamin D level in 3 months. Pancytopenia: Follows hematology and oncology in [place]. Maintain prior follow-up. Other chronic medical conditions: Continue with/resume home meds as and when able. Diabetes: Hold pioglitazone, sliding scale insulin while inpatient. PPx: resume Flomax, can remove Harris. Hyperlipidemia: Holding statin due to elevated LFTs for now, resume once LFT normalized. Glaucoma: Continue home eyedrops Seizure: Continue home Keppra Hypertension: resume home bp meds gradually DVT prophylaxis: Heparin subcu Disposition: PCU/telemetry CODE STATUS: Full code Admission and Anticipated Discharge Date Admission Date: September 23, 2025 Subjective Patient was seen and examined at bedside. Patient was lying in bed, on room air, NAD. Patient is status post ERCP 09/23 and s/p lap jason 09/25 Patient denies abdominal pain, vitals are stable now. Pt reports moving bowels ok, denies palpitation, chest pain, dizziness. Physical Exam Physical Exam: General- Not in distress Head- atraumatic Eyes- PERRL. ENT- oropharynx clear Neck- supple, no JVD. Lungs- clear to auscultation no wheezing or crackles Heart- regular rhythm; no murmur, no gallop. Abdomen- normal bowel sounds, soft, nontender, no distension, lap incision site well apposed. Extremities- no pretibial edema, no erythema seen. s/p b/l foot transmetatarsal amputation Neuro- alert, oriented PERRL, no facial palsy; no dysarthria; moves extremities. Skin- warm & dry, no rashes seen. No sacral pressure ulcer seen Results & Data Results & Data Vital Signs (Past 12 Hours) Vital Signs Temp Pulse Pulse Resp BP Pulse Ox O2 Del Method 09/26/25 11:22 36.5 C 74 17 140/69 90 Room Air 09/26/25 07:12 36.8 C 79 20 142/69 H 90 Room Air 09/26/25 07:00 77 09/26/25 03:12 36.8 C 75 19 133/65 92 Room Air (1) Sepsis Acute renal failure type: unspecified Sepsis acute organ dysfunction status: with acute organ dysfunction Sepsis type: sepsis due to unspecified organism Severe sepsis acute organ dysfunction type: acute renal failure Severe sepsis shock status: without septic shock Qualified Code(s): A41.9 - Sepsis, unspecified organism; R65.20 - Severe sepsis without septic shock; N17.9 - Acute kidney failure, unspecified
[2025-09-26] MEDS: TAMSULOSIN HCL 0.4 MG CAP PO SCH (13:21)
--- NOTE | 2025-09-26 14:30 | Infectious Disease Consult ---
Date of Service September 26, 2025 Telehealth Information I performed this visit using a real-time telehealth connection between my location and the patients location ([facility]). After connecting through interactive tele-video, patient was identified by name and date of and/or wristband check.Patient (or authorized healthcare education courses sales representative) was informed that this was a telemedicine visit and it was being conducted confidentially over secure lines. My office door was closed and no one else was present in the room with me.Patient (or authorized healthcare education courses sales representative) provided consent to proceed with the visit, expressed an understanding of privacy and security of the telemedicine visit, and gave permission to have a hospital education courses sales representative in the room in order to assist with the visit and to conduct portions of the visit, as needed. I informed the patient (or authorized healthcare education courses sales representative) that I reviewed their record and presented the opportunity for them to ask any questions regarding the visit today. The patient agreed to participate. Assessment & Plan (1) Bacteremia: Plan: Patient presented with cholecystitis and bacteremia due to ESBL E coli. Source control presumably obtained after ERCP on 09/23 with definitive intervention on 09/25 with lap choley. Clinically doing well now on ertapenem. Generally we would continue abx therapy for 7 days post-op. I would continue the ertapenem 1g IV qd through 10/02/25. There is no obvious PO option in his case (despite the amp-sul sensitivity, with ESBL this is misleading). Given the short course, consider using PIV or midline catheter instead of PICC. History of Present Illness History of Present Illness Mr. Nolasco is a 80yo male with a h/o DM, CKD, seizure d/o, and chronic pancytopenia. He was admitted to [facility] on 09/23 with weakness and fevers. His LFT's were slightly elevated and imaging suggested cholecystitis. He underwent ERCP on 09/23 and was started on empiric vancomycin and pip-tazo. Blood cultures dis turn positive for ESBL E coli and he was switched to ertapenem. On 09/25, he underwent lap choley. Overall he reports feeling better today. He has had three loose stools today however. No abdominal pain. No N/V. He states he ate roast beef for lunch. No fevers. Allergies Allergy/AdvReac Type Severity Reaction Status Date / Time cefepime Allergy Unknown SEE COMMENT Verified 08/02/25 10:47 simvastatin AdvReac Intermediate Gastrointestinal Verified 08/02/25 10:47 Upset Home Medications Medication Instructions Recorded Confirmed Type amlodipine 5 mg tablet 5 mg PO DAILY 09/23/25 09/23/25 History apple cider vinegar 600 mg capsule 450 mg PO DAILY 09/23/25 09/23/25 History atorvastatin 40 mg tablet 40 mg PO DAILY 09/23/25 09/23/25 History brimonidine 0.2 % eye drops 1 drp ophthalmic (eye) BID 09/23/25 09/23/25 History diclofenac sodium 3 % topical gel 1 applic topical TID PRN Pain 09/23/25 09/23/25 History gabapentin 100 mg capsule 100 mg PO TID 09/23/25 09/23/25 History insulin glargine 100 unit/mL 22 unit subcut DAILY 09/23/25 09/23/25 History subcutaneous solution levetiracetam 500 mg tablet 500 mg PO DAILY 09/23/25 09/23/25 History multivitamin 1 tab PO DAILY 09/23/25 09/23/25 History pioglitazone 30 mg tablet 30 mg PO DAILY 09/23/25 09/23/25 History polyethylene glycol 3350 17 gram 17 g PO DAILY PRN Constipation 09/23/2509/23 History oral powder packet (Miralax) sennosides 8.6 mg capsule (senna) 8.6 mg PO HS 09/23/25 09/23/25 History sildenafil 100 mg tablet 100 mg PO UD PRN Erectile 09/23/25 09/23/25 History Dysfunction tamsulosin 0.4 mg capsule 0.4 mg PO DAILY 09/23/25 09/23/25 History travoprost 0.004 % eye drops 1 drp ophthalmic (eye) PM 09/23/25 09/23/25 History Patient History Medical History Encounter for pre-operative examination Chronic kidney disease HEMANT (acute kidney injury) Hypomagnesemia Septic shock Elevated LFTs History of renal dialysis Foot osteomyelitis, right Foot osteomyelitis, left Pancytopenia PVD (peripheral vascular disease) HLD (hyperlipidemia) HTN (hypertension) T2DM (type 2 diabetes mellitus) Glaucoma Surgical History History of lumbar fusion Early 1999. L4-S1 laminectomy and fusion. 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 Family History Father Cancer Colorectal cancer Mother Old age Social History Smoking Status: Former smoker Second Hand Exposure: No; Do You Dip or Chew Tobacco: No; Hx Alcohol Use: No Hx Substance Use: No Preferred Language: Tamazight Communication Ability: Effective Communication Ability Comment: [place] Visual Impairment: No Limitations Hearing Ability: Use of Hearing Aid Systems Architecture Analyst Required: No Beliefs That Will Affect Care: None Current Living Situation: Significant Other Current Living Situation Comment: lives w/ girlfriend Cynthia current occupational status: retired How many Children do You have: 2 Feels Safe at Home: Yes Safety Concerns: Feels Safe At This Time caffeine: Yes Dental Care, Regularly: Yes Do you think of yourself as: straight/heterosexual Gender Identity: Male Assistive Devices: Cane and Walker Review of Systems Gen- Generalized weakness HEENT- No [place] or sore throat Lungs- No SOB CV- NO chest pain GI- Three loose stools today. No N/V. No abdominal pain currently. - No dysuria MSK- No joint pain or swelling Skin- No rash Neuro- No focal deficit Physical Exam Gen- NAD, cooperative with exam HEENT- NC AT Neck- Normal ROM Resp- Normal respirations on RA Abd- Incision clean, dry intact. Some mild distension. Skin- No rash Neuro- Alert and oriented Results & Data Vital Signs (Past 12 Hours) Vital Signs Temp Pulse Pulse Resp BP Pulse Ox O2 Del Method 09/26/25 11:22 36.5 C 74 17 140/69 90 Room Air 09/26/25 07:12 36.8 C 79 20 142/69 H 90 Room Air 09/26/25 07:00 77 09/26/25 03:12 36.8 C 75 19 133/65 92 Room Air Laboratory Results WBC 3.19 Hgb 7.9 Platelets 91 Na 137 Creatinine 1.72 BUN 27 T. B. 1.7 ALT 86 GI pathogen panel negative Blood cultures 09/22 with 4 of 4 bottles ESBL E coli Diagnostic Findings MRCP reviewed by me: FINDINGS: There is motion artifact. There are a few small gallstones at the gallbladder neck. There is possible trace pericholecystic fluid versus motion. No other gross evidence of cholecystitis seen. Common bile duct measures 9 mm diameter. There are a few small filling defects distally in the common bile duct measuring up to 5 mm.
--- NOTE | 2025-09-26 14:39 | Pharmacy Report ---
Pharmacy Glycemic Short Note 2 - Date of Service September 26, 2025 - Glycemic Short BSG Results (Last 24 hours): 09/25/25 09/25/25 09/26/25 16:25 19:57 05:35 Glucose 96 POC Glucose 125 H 142 H 09/26/25 09/26/25 07:19 11:03 Glucose POC Glucose 99 148 H OUTPATIENT ANTIDIABETIC REGIMEN: * Pioglitazone 30 mg PO daily * Lantus 22 units SC daily HbA1c: * 10.5% (09/23/25) ASSESSMENT: 09/26: * Bill only required 2 units of insulin yesterday, both were bolus. BSG have mostly been in or below goal. * Fasting BSG was 99ml/dL this morning. Will continue to hold basal insulin and will change bolus insulin parameters to trial only utilizing the correction factor (no carb coverage) to see if that helps to prevent hypoglycemia. 09/23: * 80 yo M admitted on 09/22/25 secondary to septic shock from presumable GI source. Pharmacy has been consulted to assist with inpatient glycemic management. Patient is a Type 2 diabetic as an outpatient. Please refer to outpatient regimen and most recent HbA1c above. Note that patient's HbA1c has increased significantly since previous level of 5.9% in January 2025. * Patient is critically ill requiring vasopressor support. Currently NPO status except sips/chips/meds. ESBL E. coli bacteremia also present, on Invanz. * Originally ordered basal for this AM, low dose, less than half of home dose. [employer] would like to hold for now given NPO status and pressor requirement. Will reassess basal needs throughout the evening. * Novolog was started based on weight/stress of 1-2. Has not required any insulin yet as AM BSG was 108 mg/dL today. Plan to empirically tighten Novolog to reflect full weight/stress of 2 for now given no basal. Continue to follow throughout the day. Tightened goal range this AM as well. PLAN FOR INPATIENT GLYCEMIC CONTROL: * Hold outpatient oral diabetes medications * Basal insulin * Holding for now * Bolus insulin * NovoLog per scale ACHS or Q6hrs while NPO * Goal Range: Low 120 mg/dL - High 160 mg/dL * Correction Factor: 30 mg/dL/unit * Nutritional / Prandial insulin per carb ratio of 1 unit per -- grams CHO consumed (no coverage for now)
[2025-09-26 15:04] LABS: Hematocrit (blood only) 25.5 % (42.0-52.0); Hemoglobin 8.4 g/dL (14.0-18.0)
[2025-09-27 07:02] LABS: Hematocrit (blood only) 25.7 % (42.0-52.0); Hemoglobin 8.4 g/dL (14.0-18.0); Immature Granulocytes # (auto) 0.12 K/uL (0.01-0.20); Immature Granulocytes % (auto) 4.1 %; Mean Corpuscular Hemoglobin 30.7 pg (25.0-34.0); Mean Corpuscular Volume 93.8 fL (80.0-100.0); Platelet Count 91 K/uL (130-400); RDW Standard Deviation 47.7 fL (36.4-46.3); Red Blood Count 2.74 M/uL (4.70-6.10); White Blood Count 2.90 K/ul (4.8-10.8)
[2025-09-27 07:20] LABS: Alanine Aminotransferase 63.0 U/L (7-52); Albumin Level 2.7 gm/dl (3.4-5.0); Alkaline Phosphatase 123.0 U/L (34-104); Anion Gap 6.0 (3-11); Bilirubin,Total 1.3 mg/dl (0.2-1.0); Blood Urea Nitrogen 25.0 mg/dl (6-23); Calcium 7.7 mg/dl (8.6-10.3); Carbon Dioxide 23.0 mmol/L (21-32); Chloride 111.0 mmol/L (98-107); Creatinine Clr Calc Pharmacy 39.8 ml/min; Glucose 98.0 mg/dl (70-99(Fasting)); Potassium 4.4 mmol/L (3.5-5.1); Sodium 140.0 mmol/L (136-145); Total Protein 5.4 gm/dl (6.0-8.3)
[2025-09-27] MEDS: ERTAPENEM 1000MG 1,000 MG/10 ML SYR IV SCH (10:56)
[2025-09-27 15:17] VITALS: PULSE 69; RESP 20; TEMP 98.4; O2SAT 96
--- NOTE | 2025-09-27 15:25 | Discharge Summary ---
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 is in the room. In the afternoon patient complained of chest pain. That got resolved. During suppertime patient was not able to eat anything ,was feeling very weak and having fevers and was brought to the ER. In the ER patient is afebrile. Blood pressure is soft. Initial lactic is 2.7 and repeat is 2.2. Magnesium 1.6. Calcium 8. Total bili 1.9. AST 69. ALT 431. Alkaline phos 91. Procalcitonin 48. CT of abdomen pelvis showing cholelithiasis with subtle inflammatory changes about the cystic duct. ER discussed with the GI and surgery and was recommended MRCP. Patient resting comfortably. Somewhat hard to hear. Patient states currently there is no chest pain. Currently denies nausea or abdominal pain. No headache. No runny nose or sore throat. No cough. Normal bowel bladder movements.Complains of back pain and recently had two shots to his back.Ambulates with a walker. [facility] Past medical history. As mentioned above. Past surgical history. History of lumbar fusion. History of right foot transmetatarsal amputation. History of left foot transmetatarsal amputation. Social history. Former smoker. No alcohol use. No drug use. Family history. Father had colorectal cancer. Admission Exam Per Admitting Provider General- Not in distress Head- atraumatic Eyes- PERRL. ENT- oropharynx clear Neck- supple, no JVD. Lungs- clear to auscultation no wheezing or crackles Heart- regular rhythm; no murmur, no gallop. Abdomen- normal bowel sounds, soft, nontender, no distension Extremities- no pretibial edema, no erythema seen. s/p b/l foot transmetatarsal amputation Neuro- alert, oriented PERRL, no facial palsy; no dysarthria; moves extremities. Skin- warm & dry, no rashes seen. No sacral pressure ulcer seen Principal Diagnosis Possible developing cholangitis Septic shock POA Bacteremia Transaminitis Acute blood loss anemia Hypomagnesemia and hypocalcemia Acute kidney injury over CKD stage IIIb/IV Vitamin D deficiency Pancytopenia Discharge Exam General- Not in distress Head- atraumatic Eyes- PERRL. ENT- oropharynx clear Neck- supple, no JVD. Lungs- clear to auscultation no wheezing or crackles Heart- regular rhythm; no murmur, no gallop. Abdomen- normal bowel sounds, soft, nontender, no distension, lap incision site well apposed. Extremities- no pretibial edema, no erythema seen. s/p b/l foot transmetatarsal amputation Neuro- alert, oriented PERRL, no facial palsy; no dysarthria; moves extremities. Skin- warm & dry, no rashes seen. No sacral pressure ulcer seen Discharge Data Allergies Allergy/AdvReac Type Severity Reaction Status Date / Time cefepime Allergy Unknown SEE COMMENT Verified 08/02/25 10:47 simvastatin AdvReac Intermediate Gastrointestinal Verified 08/02/25 10:47 Upset Consultations 09/23/25 00:08 Consult Gastroenterology Routine Consult General Surgery Routine ED Decision to Admit Stat 09/23/25 03:32 Consult Advertising [employer]er[employer] Supervisor Routine 09/25/25 08:02 Consult Infectious Diseases Routine Procedures Performed Operation Date: 09/25/25 08:00 Actual Procedures p Laparoscopic Cholecystectomy(Not Applicable) - Anibal Knutson DO Ordered Studies 09/22/25 22:45 CT abd pelvis wo con Stat 09/23/25 [place] ERCP biliary ductal Routine 09/23/25 00:08 MR MRCP Urgent Hospital Course (1) Sepsis: 80 yo F w/ PMH of chronic kidney disease who required dialysis in the past because of 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 Possible developing cholangitis Septic shock POA Bacteremia Transaminitis Patient reported epigastric discomfort prior to arrival, had fever and elevated LFT at presentation. At presentation: WBC 2.7 K, respiratory rate and heart rate elevated. Pro-Jam and lactic acid elevated. LFT elevated Patient needed pressor support at admission due to hypotension despite IVF resuscitation, was admitted in ICU. Admitting blood culture positive for ESBL E coli Admitting CTAP with cholelithiasis with subtle inflammatory changes about the cystic duct MRCP with CBD stone with mild common ductal dilatation. Status post ERCP 09/23: Choledocholithiasis was found, complete removal was accomplished by biliary sphincterotomy and balloon extraction. s/p lap jason 09/25 Trend LFT, downtrending, statin on hold until LFT normalizes. Continue with Ertapenem 09/23, ID evaled, atb thru 10/02/25 Gen sx evaled, appreciate help. pt to f/u w/ gen sx on dc, pt was made aware. Acute blood loss anemia: PreOp Hb 9.8, post op 7.9. Pt denies chest pain, palpitation, dizziness or sob. likely 2/2 periopertaive blood loss and hemodilution. repeat HnH stable and better. Hypomagnesemia and hypocalcemia: Monitored and repleted. 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 Admitting creatinine of 2.2, likely prerenal in the setting of septic shock. Status post IV fluid and pressor support. Avoid nephrotoxic, labs in AM. Cr resolve . History of dialysis in the past. Vitamin D deficiency: Vitamin D level low. 27.5. c/w vitamin D supplement, repeat vitamin D level in 3 months. Pancytopenia: Follows hematology and oncology in [place]. Maintain prior follo w-up. Other chronic medical conditions: Continue with/resume home meds as and when able. Diabetes: Hold pioglitazone, sliding scale insulin while inpatient. PPx: resume Flomax, can remove Harris. Hyperlipidemia: Holding statin due to elevated LFTs for now, resume once LFT normalized. Glaucoma: Continue home eyedrops Seizure: Continue home Keppra Hypertension: resume home bp meds gradually DVT prophylaxis: Heparin subcu Disposition: PCU/telemetry CODE STATUS: Full code Patient is being discharged to home with home and with following instructions at the point of discharge: Follow-up with your primary care physician within a week time and likely you wi ll need labs CBC/CMP/magnesium/phosphorus. Follow-up with general surgery in 2 to 4 weeks time upon discharge. You are being discharged on antibiotic to complete the course for your blood infection. You will need repeat vitamin D level in 3 months time, coordinate with your PCP outpatient to set up the test. Because your liver enzymes were elevated, your atorvastatin is on hold, coordinate with your PCP office to discuss when to resume this medication. Follow-up with your hematology as prior. Take your medications as prescribed. Please make sure that you are able to get your medications today by calling your pharmacy before you leave the hospital so that your treatment continuity is not broken. Home Health Attestation I certify that this patient is under my care and that I, or a physicians food trades assistants working with me, had a face to-face encounter that meets the home health [id number] encounter requirements with this patient. The encounter with the patient was in whole, or in part, for the following medical condition, which is the primary reason for home health care (list medical condition): Bacteremia-IV antbiotics I certify that, based on my findings, the following services are medically necessary home health services: My clinical findings support the need for the above services because: Skilled Nsg Assessment Further, I certify that my clinical findings support that this patient is homebound (i.e. absences from home require considerable and taxing effort and are for medical reasons or religion services or infrequently or of short duration when for other reasons) because: Supportive Aid - Walker Certification for Home Health Services: Based on the above findings, I certify that this patient is confined to the home and needs intermittent fdc care, physical therapy and/or speech therapy or continues to need occupational therapy. The patient is under my care, and I have initiated the establishment of the plan of care. This patient will be followed by a physician who will periodically review the plan of care. Total Time Total Time Spent Total Time Spent (In Minutes): 35 Discharge Plan Discharge Items Patient Disposition: Home - Home Health Services Reason For Visit: SEPSIS, CHOLECYSTITIS Discharge Diagnosis: Possible developing cholangitis Septic shock POA Bacteremia Transaminitis Acute blood loss anemia Hypomagnesemia and hypocalcemia Acute kidney injury over CKD stage IIIb/IV Vitamin D deficiency Pancytopenia Condition on Discharge: Good Activity: Resume your previous activity Non-emergency contact: Primary Care Provider and Surgeon Call non-emergency contact if: your pain is not controlled, your temperature is above 101.5, your wound has increased redness and your wound has increased drainage Follow-up/Referrals: Blanca Nicole PA-C [Primary Care Provider] - (The [facility] will call you for a follow up appointment.) Anibal Knutson DO [Physician] - (follow up in 2 weeks for your post- op check up) Diet: Carb Consistent or DM2 and Low Fat Diet Texture: Easy to Chew Zach Attending Provider Instructions: SPECIAL CARE INSTRUCTIONS: * You have skin glue, called Dermabond, over your incisions. You may shower with this on. Do NOT pick at this as it will start to fall off on its own within the next 7-10 days. * You may shower on 09/26/2025 . NO soaking in bath tubs, hot tubs, or pools for 2 weeks * No lifting greater than 10lbs. No exercise until cleared by surgeon. Light walking is accepted. * No driving while taking narcotic pain medication * No drinking alcohol while taking narcotic pain medication * May use Ibuprofen/Tylenol over the counter for pain as tolerated. Do not exceed 3grams of Tylenol per 24 hours * Expect some swelling and bruising. * Diet - resume your regular diet CALL YOUR DOCTOR IF: * Temperature above 101 degrees, nausea/vomiting, fever/chills * Pain not relieved by pain medicine ordered * There is increased drainage or redness from any incision * You have any unanswered questions or concerns [phone]. FOLLOW UP VISIT: If not already scheduled, please call the office for a follow-up visit. Office Add Principal Associate Provider Instructions: Follow-up with your primary care physician within a week time and likely you will need labs CBC/CMP/magnesium/phosphorus. Follow-up with general surgery in 2 to 4 weeks time upon discharge. You are being discharged on antibiotic to complete the course for your blood infection. You will need repeat vitamin D level in 3 months time, coordinate with your PCP outpatient to set up the test. Because your liver enzymes were elevated, your atorvastatin is on hold, coordinate with your PCP office to discuss when to resume this medication. Follow-up with your hematology as prior. Take your medications as prescribed. Please make sure that you are able to get your medications today by calling your pharmacy before you leave the hospital so that your treatment continuity is not broken. Pending Studies at Discharge: Yes Studies:: surgical pathology Stand-Alone Forms: [facility], Smoking Cessation Medications and DC Order Prescriptions: New cholecalciferol (vitamin D3) 25 mcg (1,000 unit) Capsule 25 mcg PO QAM Qty: 30 0RF ertapenem 1 gram recon soln 1 g IV DAILY 5 Days Qty: 5 0RF Continued multivitamin Tablet 1 tab PO DAILY diclofenac sodium 3 % Gel 1 applic TOPICAL TID PRN (Reason: Pain) insulin glargine 100 unit/mL Solution 22 unit SUBCUT DAILY polyethylene glycol 3350 [Miralax] 17 gram Powder In Packet 17 g PO DAILY PRN (Reason: Constipation) levetiracetam 500 mg Tablet 500 mg PO DAILY travoprost 0.004 % Drops 1 drp OPHTHALMIC (EYE) PM amlodipine 5 mg Tablet 5 mg PO DAILY sildenafil 100 mg Tablet 100 mg PO UD PRN (Reason: Erectile Dysfunction) Rx Instructions: PRN. administer 30 minutes to 4 hours before activity tamsulosin [Flomax] 0.4 mg Capsule 0.4 mg PO DAILY apple cider vinegar 600 mg Capsule 450 mg PO DAILY brimonidine 0.2 % Drops 1 drp OPHTHALMIC (EYE) BID gabapentin 100 mg Capsule 100 mg PO TID pioglitazone 30 mg Tablet 30 mg PO DAILY senna 8.6 mg Capsule 8.6 mg PO HS Held atorvastatin 40 mg Tablet 40 mg PO DAILY Hold Instructions: Resume on 10/07/25. resume w/ clearance from your PCP office once your liver function is normalized Discharge Orders: Discharge Order (Routine); Ordered 09/27/25 Ordered By: Ashleigh Linton Admission Data Admit Date/Time: 09/23/25 01:55 Attending Provider: Ashleigh Linton Admit Provider: Delmar Liz Primary Care Provider: Blanca Nicole Other Providers: Delmar Liz; Joaquin Braga I; Thompson Mae; Otoniel Kwon; Luis Delatorre; Adore Bal; Hemant De I.; Salomon Baker II; Sheeba Mosley; Marshall Macario; Humberto Nunez; Lionel Stephenson; [facility] Fax; [facility]
[2025-09-27 15:26] VITALS: BP 131/65
== END 2025-09-27 15:48 | disposition home health service (06) | DRG 853 ==
LOC: ED 21:05 → 1E 09-23 01:55 → 2S 09-23 16:18